=== PATIENT | female | born 1960 | race Caucasian/White ===

== ENCOUNTER 2017-09-23 08:43 | Emergency (ER) | payer MEDICAID ==
[~2017-09-23] VITALS: Ht 167.6 cm; Wt 105.0 kg
[~2017-09-23 08:43] MED LIST: ALBU6.7H INH; CEPH500T PO; CHLO25CA10 PO; CLON-527 PO; FERR-121; GUAI120L55 PO; HYDR-2382 PO
[2017-09-23 08:53] VITALS: BP 171/130
== END 2017-09-23 10:12 | disposition home or self-care (01) ==
LOC: ER 08:43
DX: N63.0 Unspecified lump in unspecified breast (principal); I48.91 Unspecified atrial fibrillation; I10 Essential (primary) hypertension; G89.29 Other chronic pain; Z90.49 Acquired absence of other specified parts of digestive tract; Z98.890 Other specified postprocedural states; Z79.899 Other long term (current) drug therapy
CPT/HCPCS: 99281

== ENCOUNTER 2018-01-14 06:34 | Day surgery (SDC) | payer MEDICAID ==
[~2018-01-14] VITALS: Ht 167.6 cm; Wt 110.2 kg
[2018-01-14] VITALS (7 sets, daily range): BP systolic 117–138; BP diastolic 40–79
[2018-01-14] MEDS ORDERED: normal saline 1000ml 1,000 ML IV SCH ×2 (06:55→08:38)
[2018-01-14] MEDS ORDERED: blood pressure med (07:02)
[2018-01-14] MEDS ORDERED: HYDR-565 PO (07:02)
[2018-01-14] MEDS ORDERED: SULF1TAB49 PO (07:02)
[2018-01-14 07:27] LABS: BASOPHILS % (AUTO) 0.3 % (0-1); EOSINOPHILS # (AUTO) 0.1 X10'3 (0-0.9); EOSINOPHILS % (AUTO) 2.3 % (0-6); HEMATOCRIT 41.5 % (35.0-45.0); HEMOGLOBIN 13.7 g/dl (12.0-16.0); LYMPHOCYTES # (AUTO) 1.4 X10'3 (1.1-4.8); MEAN CORPUSCULAR HEMOGLOBIN 28.7 PG (27.0-31.0); MEAN CORPUSCULAR HGB CONC 32.9 % (33.0-36.5); MEAN CORPUSCULAR VOLUME 87.2 FL (78-98); MEAN PLATELET VOLUME 8.9 FL (7.4-10.4); MONOCYTES # (AUTO) 0.4 X10'3 (0-0.9); MONOCYTES % (AUTO) 9.6 % (2-12); NEUTROPHILS # (AUTO) 2.4 X10'3 (1.8-7.7); NEUTROPHILS % (AUTO) 55.8 % (42-75); PLATELET COUNT 172 X10'3 (140-440); RED BLOOD COUNT 4.75 X10'6 (4.20-5.60); RED CELL DISTRIBUTION WIDTH 19.4 % (11.5-14.5); WHITE BLOOD COUNT 4.3 X10'3 (4.5-11.0)
[2018-01-14] MEDS ORDERED: fentaNYL/PF 50MCG/1 ML 2ML syringe IV PRN ×2 (08:20)
[2018-01-14] MEDS ORDERED: heparin sodium, porcine/PF 100unit/ml 5ML syringe ICATH ONE ×2 (08:20)
[2018-01-14] MEDS ORDERED: LIDOcaine 1%/PF 5ML 10 MG/ML VIAL SQ ONE ×2 (08:20)
[2018-01-14] MEDS ORDERED: midazolam 2 mg/2 ml injection IV PRN ×2 (08:20)
[2018-01-14] MEDS ORDERED: heparin sodium, porcine/PF 100unit/ml 5ML syringe ONE (08:24)
[2018-01-14] MEDS ORDERED: fentaNYL/PF 50MCG/1 ML 2ML syringe ONE ×2 (08:25→09:10)
[2018-01-14] MEDS ORDERED: midazolam 2 mg/2 ml injection ONE (08:25)
[2018-01-14] MEDS ORDERED: LIDOcaine 1%/PF 5ML 10 MG/ML VIAL ONE (08:25)
[2018-01-14] MEDS ORDERED: LISI10TA4 PO (09:57)
== END 2018-01-14 10:44 | disposition home or self-care (01) ==
LOC: SSTAY O 06:34
PROVIDERS: ATTEND Radiology Diagnostic Radiology
DX: C50.311 Malignant neoplasm of lower-inner quadrant of right female breast (principal); I10 Essential (primary) hypertension; I48.91 Unspecified atrial fibrillation; F32.9 Major depressive disorder, single episode, unspecified; F41.8 Other specified anxiety disorders; I49.8 Other specified cardiac arrhythmias; F17.210 Nicotine dependence, cigarettes, uncomplicated; G89.29 Other chronic pain; Z90.11 Acquired absence of right breast and nipple; Z92.21 Personal history of antineoplastic chemotherapy; Z98.84 Bariatric surgery status; Z87.01 Personal history of pneumonia (recurrent); Z90.49 Acquired absence of other specified parts of digestive tract; Z87.440 Personal history of urinary (tract) infections; Z92.3 Personal history of irradiation; Z72.89 Other problems related to lifestyle; Z79.2 Long term (current) use of antibiotics; Z79.891 Long term (current) use of opiate analgesic; Z98.890 Other specified postprocedural states; Z79.899 Other long term (current) drug therapy
CPT/HCPCS: 36415; 36561; 76937; 77001; 85025; 99152; 99153; A6219; C1788; C1894; J1642; J2001; J2250; J3010; J7030; A4620

== ENCOUNTER 2018-08-15 16:27 | Inpatient (IN) | payer MEDICAID, OTHER ==
[~2018-08-15] VITALS: Ht 167.6 cm; Wt 112.0 kg
[~2018-08-15 16:27] MED LIST changes: -ALBU6.7H INH; -CEPH500T PO; -CHLO25CA10 PO; -CLON-527 PO; -FERR-121; -GUAI120L55 PO; -HYDR-2382 PO; +HYDR-4353 PO; +LISI10TA4 PO; +SULF1TAB49 PO
[2018-08-15] MEDS ORDERED: normal saline 1000ML IV soln IVB ONE (17:00)
[2018-08-15] MEDS ORDERED: LORazepam 2 mg/ml vial IV ONE ×2 (17:00→18:05)
[2018-08-15 17:30] LABS: HEMATOCRIT 38.5 % (35.0-45.0); HEMOGLOBIN 12.4 g/dl (12.0-16.0); MEAN CORPUSCULAR HEMOGLOBIN 30.7 PG (27.0-31.0); MEAN CORPUSCULAR HGB CONC 32.2 g/dL (33.0-36.5); MEAN CORPUSCULAR VOLUME 95.5 FL (78-98); MEAN PLATELET VOLUME 9.2 FL (7.4-10.4); PLATELET COUNT 143 X10'3 (140-440); RED BLOOD COUNT 4.03 X10'6 (4.20-5.60); WHITE BLOOD COUNT 2.7 X10'3 (4.5-11.0)
[2018-08-15 17:42] LABS: ALANINE AMINOTRANSFERASE 144 U/L (12-78); ALBUMIN/GLOBULIN RATIO 0.7 (1.1-1.5); ALKALINE PHOSPHATASE 313 IU/L (46-116); ANION GAP 10 (8-16); ASPARTATE AMINO TRANSFERASE 355 U/L (10-37); BILIRUBIN,TOTAL 1.7 MG/DL (0.1-1.0); BLOOD UREA NITROGEN 6 MG/DL (7-18); BUN/CREATININE RATIO 11.8 (6.6-38.0); CALCIUM 8.5 MG/DL (8.5-10.1); CHLORIDE 98 MMOL/L (99-107); CREATININE 0.51 MG/DL (0.40-0.90); GLUCOSE 92 MG/DL (70-104); SODIUM 134 MMOL/L (135-145); TOTAL PROTEIN 7.6 G/DL (6.4-8.2); eGFR > 90 ML/MIN
[2018-08-15 17:45] LABS: D-DIMER 1.73 MG/L FEU (0-0.50); PARTIAL THROMBOPLASTIN TIME 26 SECONDS (22-32); PROTHROMBIN TIME 10.2 SECONDS (9.0-12.0)
[2018-08-15] MEDS ORDERED: diltiazem 5mg/ml 5ml inj. IV ONE ×2 (17:55→19:35)
[2018-08-15] MEDS ORDERED: iohexol 350MG/ML 100ml bottle IV ONE (17:58)
[2018-08-15 17:59] LABS: TOTAL CELLS COUNTED 100
[2018-08-15 18:00] LABS: ANISOCYTOSIS 1+; PLATELET ESTIMATE NORMAL
[2018-08-15] MEDS ORDERED: LORazepam 2 mg/ml vial ONE (18:05)
[2018-08-15 19:22] LABS: URINE AMPHETAMINE SCREEN NEGATIVE (Neg); URINE BARBITUATE SCREEN NEGATIVE (Neg); URINE BENZODIAZEPINES SCREEN NEGATIVE (Neg); URINE CANNABINOID SCREEN NEGATIVE (Neg); URINE COCAINE SCREEN NEGATIVE (Neg); URINE METHADONE SCREEN NEGATIVE (Neg); URINE OPIATE SCREEN NEGATIVE (Neg); URINE PHENCYCLIDINE SCREEN NEGATIVE (Neg)
[2018-08-15] MEDS ORDERED: folic acid 1mg tablet PO ONE (19:45)
[2018-08-15] MEDS ORDERED: thiamine 100mg tablet PO ONE (19:45)
[2018-08-15] MEDS ORDERED: gabapentin 300mg capsule PO ONE (19:45)
[2018-08-15] MEDS ORDERED: normal saline 1000ml 1,000 ML IV SCH (19:48)
[2018-08-15] MEDS ORDERED: enoxaparin 100mg/ml syringe SUBCUT ONE (19:50)
[2018-08-15] MEDS: thiamine 100mg tablet PO SCH (19:50)
[2018-08-15] MEDS ORDERED: ondansetron/PF 4mg/2ml inj IV PRN (19:50)
[2018-08-15] MEDS ORDERED: magnesium hydroxide 30ml (MOM) UD suspension PO PRN (19:50)
[2018-08-15] MEDS ORDERED: magnesium Cl slow-release 64mg tablet PO PRN (19:50)
[2018-08-15] MEDS ORDERED: thiamine inj. 100 MG in normal saline 100ml IV soln 100 ML IV ONE (19:50)
[2018-08-15] MEDS ORDERED: metoprolol tartrate 1mg/ml inj IV ONE (19:50)
[2018-08-15] MEDS ORDERED: potassium Cl 40MEQ/NS 500ml 500 ML IV PRN ×2 (19:50)
[2018-08-15] MEDS ORDERED: acetaminophen 325mg tablet PO PRN ×2 (19:50)
[2018-08-15] MEDS ORDERED: haloperidol lactate 5mg/ml inj IM PRN (19:50)
[2018-08-15] MEDS ORDERED: magnesium 4gm in 100ml NS 100 ML IV PRN (19:50)
[2018-08-15] MEDS ORDERED: haloperidol 5mg tablet PO PRN (19:50)
[2018-08-15] MEDS ORDERED: LORazepam 2 mg/ml vial IV PRN (19:50)
[2018-08-15] MEDS ORDERED: mag hydrox/Alum hydrox/simeth 30ml oral suspension PO PRN (19:50)
[2018-08-15] MEDS ORDERED: folic acid 1mg tablet PO SCH (19:50)
[2018-08-15] MEDS ORDERED: potassium Cl 20 mEq SR tablet PO PRN (19:50)
[2018-08-15] MEDS ORDERED: magnesium 2GM in 50ml NS 50 ML IV PRN (19:50)
--- NOTE | 2018-08-15 20:45 | NUR ---
Patient in room PCU 3023. I have received report from Neftali DOWNS and had the opportunity to ask questions and assume patient care.
[2018-08-15 21:00] VITALS: BP 127/80
--- NOTE | 2018-08-15 21:00 | NUR ---
Patient arrived to PCU.
[2018-08-15] MEDS: LORazepam 1 MG tablet PO PRN (22:34)
[2018-08-15] MEDS ORDERED: nitroGLYCERIN 0.4mg SUBLingual tab SL PRN (22:55)
[2018-08-15] MEDS: folic acid inj. 2 MG, thiamine inj. 100 MG, MVI, adult No.4 with vit. K 10 ML in dextro... IV SCH ×4 (22:56)
[2018-08-15 23:00] VITALS: BP 111/78
[2018-08-15] MEDS: metoprolol tartrate 25mg tablet PO SCH (23:35)
[2018-08-15] MEDS: Melatonin 3mg tablet PO SCH (23:35)
[2018-08-16] VITALS (14 sets, daily range): BP systolic 101–153; BP diastolic 64–109
[2018-08-16] MEDS: LORazepam 1 MG tablet PO PRN ×6 (03:20→23:54)
[2018-08-16 05:30] LABS: BASOPHILS % (AUTO) 0.9 % (0-1); EOSINOPHILS % (AUTO) 1.2 % (0-6); HEMATOCRIT 32.4 % (35.0-45.0); HEMOGLOBIN 10.8 g/dl (12.0-16.0); LYMPHOCYTES # (AUTO) 0.4 X10'3 (1.1-4.8); MEAN CORPUSCULAR HEMOGLOBIN 31.7 PG (27.0-31.0); MEAN CORPUSCULAR HGB CONC 33.3 g/dL (33.0-36.5); MEAN CORPUSCULAR VOLUME 95.1 FL (78-98); MEAN PLATELET VOLUME 9.3 FL (7.4-10.4); MONOCYTES # (AUTO) 0.3 X10'3 (0-0.9); MONOCYTES % (AUTO) 13.4 % (2-12); NEUTROPHILS # (AUTO) 1.6 X10'3 (1.8-7.7); NEUTROPHILS % (AUTO) 66.5 % (42-75); PLATELET COUNT 116 X10'3 (140-440); RED BLOOD COUNT 3.41 X10'6 (4.20-5.60); RED CELL DISTRIBUTION WIDTH 18.2 % (11.5-14.5); WHITE BLOOD COUNT 2.4 X10'3 (4.5-11.0)
[2018-08-16 05:39] LABS: ALANINE AMINOTRANSFERASE 125 U/L (12-78); ALBUMIN 2.6 G/DL (3.4-5.0); ALBUMIN/GLOBULIN RATIO 0.7 (1.1-1.5); ALKALINE PHOSPHATASE 267 IU/L (46-116); ANION GAP 7 (8-16); ASPARTATE AMINO TRANSFERASE 293 U/L (10-37); BILIRUBIN,TOTAL 2.5 MG/DL (0.1-1.0); BLOOD UREA NITROGEN 5 MG/DL (7-18); BUN/CREATININE RATIO 10.6 (6.6-38.0); CALCIUM 8.3 MG/DL (8.5-10.1); CHLORIDE 100 MMOL/L (99-107); CREATININE 0.47 MG/DL (0.40-0.90); GLUCOSE 95 MG/DL (70-104); POTASSIUM 3.9 MMOL/L (3.5-5.1); SODIUM 134 MMOL/L (135-145); TOTAL CARBON DIOXIDE 27.1 MMOL/L (24-32); TOTAL PROTEIN 6.5 G/DL (6.4-8.2); eGFR > 90 ML/MIN
[2018-08-16 05:43] LABS: PHOSPHORUS 1.9 MG/DL (2.3-4.5)
[2018-08-16] MEDS: folic acid inj. 2 MG, thiamine inj. 100 MG, MVI, adult No.4 with vit. K 10 ML in dextro... IV SCH ×4 (07:34)
[2018-08-16] MEDS: multivitamins, therapeutics tablet PO SCH (07:35)
[2018-08-16] MEDS: metoprolol tartrate 25mg tablet PO SCH ×2 (07:35→20:56)
[2018-08-16] MEDS: K and/or MAG REPLACEMENT MC SCH (07:39)
[2018-08-16 09:42] LABS: PLATELET ESTIMATE DECREASED; TOTAL CELLS COUNTED 100
[2018-08-16 09:43] LABS: ANISOCYTOSIS 2+
[2018-08-16] MEDS: HYDROcodone/acetaminophen 5mg/325mg tablet PO PRN ×2 (11:14→18:33)
[2018-08-16] MEDS ORDERED: furosemide 40mg/4ml inj IV ONE (15:45)
--- NOTE | 2018-08-16 18:10 | NUR ---
Problems reprioritized. Patient report given, questions answered & plan of care reviewed with Alisa DOWNS.
--- NOTE | 2018-08-16 18:17 | NUR ---
Paged Dr. Mei. PAGER ID: [phone] MESSAGE: Miles DOWNS [phone] [id number]: Tonya Boggs: HR 130s - 140s A fib, started at 1700. No SOB, no chest pain. Current BP 136/76.
[2018-08-16] MEDS ORDERED: diltiazem-D5W 125mg/125ml 125 ML IV SCH (18:30)
--- NOTE | 2018-08-16 18:30 | NUR ---
Patient in room PCU 3023. I have received report from jeremiah douglass and had the opportunity to ask questions and assume patient care.
--- NOTE | 2018-08-16 18:56 | NUR ---
Problems reprioritized. Patient report given, questions answered & plan of care reviewed with Jelena DOWNS.
[2018-08-16] MEDS: apixaban 5mg tablet PO SCH (20:54)
[2018-08-16] MEDS: Melatonin 3mg tablet PO SCH (20:55)
[2018-08-17] VITALS (12 sets, daily range): BP systolic 117–147; BP diastolic 80–105
[2018-08-17] MEDS: HYDROcodone/acetaminophen 5mg/325mg tablet PO PRN ×4 (00:18→19:22)
[2018-08-17] MEDS: LORazepam 1 MG tablet PO PRN ×6 (04:31→22:40)
[2018-08-17 04:56] LABS: BASOPHILS % (AUTO) 0.5 % (0-1); EOSINOPHILS # (AUTO) 0.1 X10'3 (0-0.9); EOSINOPHILS % (AUTO) 2.7 % (0-6); HEMATOCRIT 34.5 % (35.0-45.0); LYMPHOCYTES # (AUTO) 0.5 X10'3 (1.1-4.8); LYMPHOCYTES % (AUTO) 16.9 % (21-51); MEAN CORPUSCULAR HEMOGLOBIN 30.8 PG (27.0-31.0); MEAN CORPUSCULAR HGB CONC 31.9 g/dL (33.0-36.5); MEAN CORPUSCULAR VOLUME 96.6 FL (78-98); MEAN PLATELET VOLUME 9.2 FL (7.4-10.4); MONOCYTES # (AUTO) 0.4 X10'3 (0-0.9); MONOCYTES % (AUTO) 12.1 % (2-12); NEUTROPHILS % (AUTO) 67.8 % (42-75); PLATELET COUNT 112 X10'3 (140-440); RED BLOOD COUNT 3.57 X10'6 (4.20-5.60); RED CELL DISTRIBUTION WIDTH 17.8 % (11.5-14.5); WHITE BLOOD COUNT 2.9 X10'3 (4.5-11.0)
--- NOTE | 2018-08-17 05:08 | NUR ---
pt woke suddenly short of breath. RT notified. MD notified. Xray ordered. 2Lnasal cannula, sats high 90s.
[2018-08-17 05:16] LABS: ALANINE AMINOTRANSFERASE 119 U/L (12-78); ALBUMIN 2.6 G/DL (3.4-5.0); ALBUMIN/GLOBULIN RATIO 0.7 (1.1-1.5); ALKALINE PHOSPHATASE 256 IU/L (46-116); ANION GAP 5 (8-16); ASPARTATE AMINO TRANSFERASE 228 U/L (10-37); BLOOD UREA NITROGEN 5 MG/DL (7-18); BUN/CREATININE RATIO 8.9 (6.6-38.0); CALCIUM 8.3 MG/DL (8.5-10.1); CHLORIDE 99 MMOL/L (99-107); CREATININE 0.56 MG/DL (0.40-0.90); GLUCOSE 97 MG/DL (70-104); MAGNESIUM 1.8 MG/DL (1.5-2.4); PHOSPHORUS 2.1 MG/DL (2.3-4.5); SODIUM 134 MMOL/L (135-145); TOTAL CARBON DIOXIDE 29.9 MMOL/L (24-32); TOTAL PROTEIN 6.6 G/DL (6.4-8.2); eGFR > 90 ML/MIN
[2018-08-17 05:17] LABS: POTASSIUM 3.4 MMOL/L (3.5-5.1)
--- NOTE | 2018-08-17 05:19 | NUR ---
xray done. pt says she is feeling better. denied any further needs at this time. nasal cannula still on
--- NOTE | 2018-08-17 06:17 | NUR ---
Problems reprioritized. Patient report given, questions answered & plan of care reviewed with Marimar DOWNS.
[2018-08-17 08:00] LABS: TOTAL CELLS COUNTED 100
[2018-08-17] MEDS: K and/or MAG REPLACEMENT MC SCH (08:00)
[2018-08-17 08:01] LABS: PLATELET ESTIMATE DECREASED
[2018-08-17 08:03] LABS: ANISOCYTOSIS 1+; LARGE PLATELETS FEW
[2018-08-17] MEDS: multivitamins, therapeutics tablet PO SCH (08:52)
[2018-08-17] MEDS: potassium Cl 20 mEq SR tablet PO PRN ×3 (08:53→17:13)
[2018-08-17] MEDS: folic acid 1mg tablet PO SCH (08:53)
[2018-08-17] MEDS: apixaban 5mg tablet PO SCH ×2 (08:53→19:22)
[2018-08-17] MEDS: thiamine 100mg tablet PO SCH (08:53)
[2018-08-17] MEDS: metoprolol tartrate 25mg tablet PO SCH ×2 (08:54→19:22)
[2018-08-17] MEDS: furosemide 40mg/4ml inj IV SCH (08:58)
[2018-08-17] MEDS ORDERED: METO25TA6 PO (12:33)
[2018-08-17] MEDS ORDERED: CARCD120C PO (12:33)
[2018-08-17] MEDS ORDERED: APIX5TAB3 PO (12:33)
[2018-08-17] MEDS ORDERED: FURO-150 PO (12:33)
[2018-08-17] MEDS: diltiazem CD 120mg capsule (once-daily) PO SCH (13:07)
--- NOTE | 2018-08-17 16:07 | NUR ---
Pt given iv Ativan for anxiety and claustrophobia for MRI.
--- NOTE | 2018-08-17 16:10 | NUR ---
Patient to MRI with tech via wheelchair
--- NOTE | 2018-08-17 18:22 | NUR ---
Problems reprioritized. Patient report given, questions answered & plan of care reviewed with YARELI Cuellar.
--- NOTE | 2018-08-17 18:58 | NUR ---
Patient in room PCU 3023. I have received report from Marimar DOWNS and had the opportunity to ask questions and assume patient care.
[2018-08-17] MEDS: Melatonin 3mg tablet PO SCH (22:40)
[2018-08-18] MEDS: LORazepam 1 MG tablet PO PRN ×5 (01:08→12:40)
[2018-08-18] MEDS: HYDROcodone/acetaminophen 5mg/325mg tablet PO PRN ×3 (01:08→12:40)
[2018-08-18 02:00] VITALS: BP 148/95
[2018-08-18 05:14] LABS: BASOPHILS % (AUTO) 0.5 % (0-1); EOSINOPHILS # (AUTO) 0.1 X10'3 (0-0.9); HEMATOCRIT 33.5 % (35.0-45.0); HEMOGLOBIN 10.9 g/dl (12.0-16.0); LYMPHOCYTES # (AUTO) 0.4 X10'3 (1.1-4.8); LYMPHOCYTES % (AUTO) 12.5 % (21-51); MEAN CORPUSCULAR HEMOGLOBIN 31.4 PG (27.0-31.0); MEAN CORPUSCULAR HGB CONC 32.4 g/dL (33.0-36.5); MEAN CORPUSCULAR VOLUME 96.7 FL (78-98); MEAN PLATELET VOLUME 9.7 FL (7.4-10.4); MONOCYTES # (AUTO) 0.4 X10'3 (0-0.9); NEUTROPHILS # (AUTO) 2.4 X10'3 (1.8-7.7); PLATELET COUNT 110 X10'3 (140-440); RED BLOOD COUNT 3.46 X10'6 (4.20-5.60); RED CELL DISTRIBUTION WIDTH 18.1 % (11.5-14.5); WHITE BLOOD COUNT 3.4 X10'3 (4.5-11.0)
[2018-08-18 05:20] LABS: ALANINE AMINOTRANSFERASE 93 U/L (12-78); ALBUMIN 2.6 G/DL (3.4-5.0); ALBUMIN/GLOBULIN RATIO 0.7 (1.1-1.5); ALKALINE PHOSPHATASE 232 IU/L (46-116); ANION GAP 6 (8-16); ASPARTATE AMINO TRANSFERASE 136 U/L (10-37); BILIRUBIN,TOTAL 2.6 MG/DL (0.1-1.0); BLOOD UREA NITROGEN 6 MG/DL (7-18); CALCIUM 8.4 MG/DL (8.5-10.1); CHLORIDE 101 MMOL/L (99-107); GLUCOSE 91 MG/DL (70-104); MAGNESIUM 1.7 MG/DL (1.5-2.4); PHOSPHORUS 2.3 MG/DL (2.3-4.5); POTASSIUM 3.6 MMOL/L (3.5-5.1); SODIUM 136 MMOL/L (135-145); TOTAL CARBON DIOXIDE 28.8 MMOL/L (24-32); TOTAL PROTEIN 6.4 G/DL (6.4-8.2); eGFR > 90 ML/MIN
[2018-08-18 06:00] VITALS: BP 122/89
--- NOTE | 2018-08-18 06:00 | NUR ---
ASSUMED PT CARE IVJ
[2018-08-18] MEDS: folic acid 1mg tablet PO SCH (07:24)
[2018-08-18] MEDS: multivitamins, therapeutics tablet PO SCH (07:24)
[2018-08-18] MEDS: metoprolol tartrate 25mg tablet PO SCH (07:25)
[2018-08-18] MEDS: diltiazem CD 120mg capsule (once-daily) PO SCH (07:25)
[2018-08-18] MEDS: furosemide 40mg/4ml inj IV SCH ×3 (07:25→07:53)
[2018-08-18] MEDS: thiamine 100mg tablet PO SCH (07:25)
[2018-08-18] MEDS: apixaban 5mg tablet PO SCH (07:25)
[2018-08-18] MEDS: K and/or MAG REPLACEMENT MC SCH (07:51)
--- NOTE | 2018-08-18 09:00 | NUR ---
RECIVED d/c ORDER FROM md choudhury
--- NOTE | 2018-08-18 09:38 | NUR ---
PT REFUSED bs CHECKED Addendum: 08/18/18 at 0939 by Ashely Tijerina RN Amended: Links added.
[2018-08-18 11:11] VITALS: BP 139/88
--- NOTE | 2018-08-18 12:00 | NUR ---
Patient medication called for pharmacy in [employer] [facility] Pt stated she is call for her rides IVJ
--- NOTE | 2018-08-18 12:00 | NUR ---
refused BS checked IVJ Addendum: 08/18/18 at 1448 by Ashely Tijerina RN Amended: Links added.
== END 2018-08-18 14:53 | disposition home or self-care (01) | DRG 308 ==
LOC: ER 16:28 → PCU 3S 20:07 → CMPBEDREQ 22:29
PROVIDERS: ADMIT Hospitalist; ATTEND Internal Medicine
PROC: B32T1ZZ Computerized Tomography (CT Scan) of Left Pulmonary Artery using Low Osmolar Contrast (ICD-10-PCS; principal; 2018-08-15)
PROC: B3201ZZ Computerized Tomography (CT Scan) of Thoracic Aorta using Low Osmolar Contrast (ICD-10-PCS; 2018-08-15)
PROC: B32S1ZZ Computerized Tomography (CT Scan) of Right Pulmonary Artery using Low Osmolar Contrast (ICD-10-PCS; 2018-08-15)
DX: I48.0 Paroxysmal atrial fibrillation (principal); I50.33 Acute on chronic diastolic (congestive) heart failure; J98.11 Atelectasis; F10.20 Alcohol dependence, uncomplicated; F17.210 Nicotine dependence, cigarettes, uncomplicated; F41.9 Anxiety disorder, unspecified; C50.919 Malignant neoplasm of unspecified site of unspecified female breast; G89.4 Chronic pain syndrome; I27.20 Pulmonary hypertension, unspecified; I11.0 Hypertensive heart disease with heart failure; I34.0 Nonrheumatic mitral (valve) insufficiency; R91.1 Solitary pulmonary nodule; K70.10 Alcoholic hepatitis without ascites; K76.0 Fatty (change of) liver, not elsewhere classified; Z85.118 Personal history of other malignant neoplasm of bronchus and lung; Z92.21 Personal history of antineoplastic chemotherapy; Z92.3 Personal history of irradiation; Z98.84 Bariatric surgery status; Z90.49 Acquired absence of other specified parts of digestive tract; Z79.899 Other long term (current) drug therapy; Z71.6 Tobacco abuse counseling
CPT/HCPCS: 36415; 71045; 71275; 80053; 80305; 82948; 83735; 83880; 84100; 84484; 85025; 85379; 85610; 85730; 87070; 93005; 93306; 96374; 96375; 96376; 99285; G0378; J1650; J1940; J2060; J3411; J3490; J7030; J7060; Q9967

== ENCOUNTER 2019-03-21 14:07 | Emergency (ER) | payer MEDICAID ==
[~2019-03-21] VITALS: Ht 167.6 cm; Wt 104.5 kg
[~2019-03-21 14:07] MED LIST changes: +APIX5TAB3 PO; +CARCD120C PO; +FURO-150 PO; -HYDR-4353 PO; +METO25TA6 PO; -SULF1TAB49 PO
[2019-03-21] MEDS ORDERED: morphine 4 MG/ML inj SYRINge IV PRN (15:40)
[2019-03-21] MEDS ORDERED: ondansetron/PF 4mg/2ml inj IV ONE (15:40)
[2019-03-21] MEDS ORDERED: normal saline 1000ML IV soln IVB ONE (15:40)
[2019-03-21] MEDS ORDERED: ketorolac trometh. 30mg/ml inj. IV ONE (15:50)
[2019-03-21 15:53] LABS: BASOPHILS % (AUTO) 0.6 % (0-1); EOSINOPHILS # (AUTO) 0.1 X10'3 (0-0.9); HEMATOCRIT 47.2 % (35.0-45.0); HEMOGLOBIN 15.8 g/dl (12.0-16.0); LYMPHOCYTES # (AUTO) 1.4 X10'3 (1.1-4.8); LYMPHOCYTES % (AUTO) 18.7 % (21-51); MEAN CORPUSCULAR HEMOGLOBIN 31.1 PG (27.0-31.0); MEAN CORPUSCULAR HGB CONC 33.4 g/dL (33.0-36.5); MEAN PLATELET VOLUME 8.7 FL (7.4-10.4); MONOCYTES # (AUTO) 0.6 X10'3 (0-0.9); NEUTROPHILS # (AUTO) 5.3 X10'3 (1.8-7.7); NEUTROPHILS % (AUTO) 71.7 % (42-75); PLATELET COUNT 246 X10'3 (140-440); RED BLOOD COUNT 5.07 X10'6 (4.20-5.60); WHITE BLOOD COUNT 7.4 X10'3 (4.5-11.0)
[2019-03-21 16:08] LABS: ALANINE AMINOTRANSFERASE 22 U/L (12-78); ALBUMIN 3.4 G/DL (3.4-5.0); ALBUMIN/GLOBULIN RATIO 0.7 (1.1-1.5); ALKALINE PHOSPHATASE 146 IU/L (46-116); ANION GAP 12 (8-16); ASPARTATE AMINO TRANSFERASE 25 U/L (10-37); BILIRUBIN,TOTAL 1.1 MG/DL (0.1-1.0); BLOOD UREA NITROGEN 16 MG/DL (7-18); CALCIUM 9.3 MG/DL (8.5-10.1); CHLORIDE 103 MMOL/L (99-107); CREATININE 0.89 MG/DL (0.40-0.90); GLUCOSE 116 MG/DL (70-104); LIPASE 50 U/L (73-393); POTASSIUM 3.9 MMOL/L (3.5-5.1); SODIUM 140 MMOL/L (135-145); TOTAL CARBON DIOXIDE 25.5 MMOL/L (24-32); TOTAL PROTEIN 8.3 G/DL (6.4-8.2); eGFR 65 ML/MIN
[2019-03-21 16:52] LABS: CLARITY,URINE TURBID (Clear); COLOR,URINE YELLOW (Yellow); D-DIMER 0.38 MG/L FEU (0-0.50); GLUCOSE, URINE NEGATIVE (Neg); KETONES,URINE 15 mg/dl (Neg); LEUKOCYTE ESTERASE ,URINE SMALL (Neg); NITRITES, URINE POSITIVE (Neg); OCCULT BLOOD,URINE NEGATIVE (Neg); PROTEIN,URINE 30 mg/dl (Neg)
[2019-03-21 16:54] LABS: UA COLLECTION TYPE CLN CATCH MIDSTREAM
[2019-03-21 17:00] LABS: SQUAMOUS EPITHELIAL CELL,UR MANY /LPF (FEW)
[2019-03-21 17:01] LABS: AMORPHOUS PHOSPHATES 1+; BACTERIA,URINE 2+ /HPF (Neg); RBC,URINE 0-2 /HPF (0-2); WBC,URINE 0-4 /HPF (0-4)
[2019-03-21] MEDS ORDERED: CEPH250T PO (17:01)
--- NOTE | 2019-03-21 17:03 | NUR ---
HALLEY Mcarthur is at the bedside.
[2019-03-21 17:33] VITALS: BP 151/84
== END 2019-03-21 17:40 | disposition home or self-care (01) ==
LOC: ER 14:08
DX: N39.0 Urinary tract infection, site not specified (principal); R10.12 Left upper quadrant pain; I48.91 Unspecified atrial fibrillation; I10 Essential (primary) hypertension; G89.29 Other chronic pain; F17.200 Nicotine dependence, unspecified, uncomplicated; Z90.49 Acquired absence of other specified parts of digestive tract; Z98.890 Other specified postprocedural states; Z98.84 Bariatric surgery status; Z85.3 Personal history of malignant neoplasm of breast; Z79.899 Other long term (current) drug therapy
CPT/HCPCS: 36415; 71045; 74176; 80053; 81001; 83690; 84484; 85025; 85379; 93005; 96374; 96375; 99284; J1885; J2270; J2405; J7030

== ENCOUNTER 2019-04-25 12:33 | Emergency (ER) | payer MEDICAID ==
[~2019-04-25] VITALS: Ht 167.6 cm; Wt 105.0 kg
[2019-04-25 13:16] LABS: BASOPHILS % (AUTO) 0.5 % (0-1); EOSINOPHILS # (AUTO) 0.1 X10'3 (0-0.9); HEMATOCRIT 40.2 % (35.0-45.0); HEMOGLOBIN 13.4 g/dl (12.0-16.0); LYMPHOCYTES # (AUTO) 0.9 X10'3 (1.1-4.8); MEAN CORPUSCULAR HEMOGLOBIN 30.5 PG (27.0-31.0); MEAN CORPUSCULAR HGB CONC 33.2 g/dL (33.0-36.5); MEAN CORPUSCULAR VOLUME 91.9 FL (78-98); MEAN PLATELET VOLUME 8.6 FL (7.4-10.4); MONOCYTES # (AUTO) 0.5 X10'3 (0-0.9); MONOCYTES % (AUTO) 6.9 % (2-12); NEUTROPHILS # (AUTO) 5.5 X10'3 (1.8-7.7); NEUTROPHILS % (AUTO) 78.6 % (42-75); PLATELET COUNT 231 X10'3 (140-440); RED BLOOD COUNT 4.37 X10'6 (4.20-5.60); RED CELL DISTRIBUTION WIDTH 16.9 % (11.5-14.5)
[2019-04-25 13:35] LABS: ALANINE AMINOTRANSFERASE 66 U/L (12-78); ALBUMIN 3.4 G/DL (3.4-5.0); ALBUMIN/GLOBULIN RATIO 0.8 (1.1-1.5); ALKALINE PHOSPHATASE 161 IU/L (46-116); ANION GAP 4 (8-16); ASPARTATE AMINO TRANSFERASE 54 U/L (10-37); BILIRUBIN,TOTAL 1.1 MG/DL (0.1-1.0); BLOOD UREA NITROGEN 9 MG/DL (7-18); BUN/CREATININE RATIO 12.2 (6.6-38.0); CALCIUM 8.6 MG/DL (8.5-10.1); CHLORIDE 100 MMOL/L (99-107); CREATININE 0.74 MG/DL (0.40-0.90); SODIUM 135 MMOL/L (135-145); TOTAL CARBON DIOXIDE 31.3 MMOL/L (24-32); TOTAL PROTEIN 7.7 G/DL (6.4-8.2); eGFR 80 ML/MIN
[2019-04-25 13:36] LABS: GLUCOSE 98 MG/DL (70-104)
[2019-04-25] MEDS ORDERED: iohexol 350MG/ML 100ml bottle IV ONE (13:38)
[2019-04-25] MEDS ORDERED: LORazepam 2 mg/ml vial IV ONE (14:30)
[2019-04-25 15:05] VITALS: BP 185/115
[2019-04-25] MEDS ORDERED: DOXY100C43 PO (15:38)
== END 2019-04-25 15:45 | disposition home or self-care (01) ==
LOC: ER 12:33
DX: R07.89 Other chest pain (principal); R06.02 Shortness of breath; R93.89 Abnormal findings on diagnostic imaging of other specified body structures; R05 Cough; I48.91 Unspecified atrial fibrillation; I10 Essential (primary) hypertension; G89.29 Other chronic pain; F41.9 Anxiety disorder, unspecified; Z90.49 Acquired absence of other specified parts of digestive tract; Z98.0 Intestinal bypass and anastomosis status; Z98.890 Other specified postprocedural states; Z85.3 Personal history of malignant neoplasm of breast; Z79.01 Long term (current) use of anticoagulants; Z79.899 Other long term (current) drug therapy
CPT/HCPCS: 36415; 71045; 71275; 80053; 84484; 85025; 93005; 96374; 99284; J2060; Q9967

== ENCOUNTER 2020-11-16 19:22 | Inpatient (IN) | payer MEDICAID ==
[~2020-11-16] VITALS: Ht 167.6 cm; Wt 104.5 kg
[~2020-11-16 19:22] MED LIST changes: +LISI10TA27 PO; -LISI10TA4 PO; +LOP25T PO; -METO25TA6 PO
[2020-11-16] MEDS ORDERED: normal saline 1000ML IV soln IVB ONE (19:55)
--- NOTE | 2020-11-16 20:52 | NUR ---
PT STATES HER LAST DRINK WAS 1 HOUR PRIOR TO COMING IN. DRINK BEER ALL DAY, COULDNT GIVE ME A NUMBER.
[2020-11-16 21:00] LABS: BASOPHILS % (AUTO) 0.4 % (0-1); EOSINOPHILS % (AUTO) 0.5 % (0-6); HEMATOCRIT 38.1 % (35.0-45.0); HEMOGLOBIN 12.9 g/dl (12.0-16.0); LYMPHOCYTES # (AUTO) 0.9 X10'3 (1.1-4.8); LYMPHOCYTES % (AUTO) 8.5 % (21-51); MEAN CORPUSCULAR HEMOGLOBIN 34.9 PG (27.0-31.0); MEAN CORPUSCULAR HGB CONC 33.8 g/dL (33.0-36.5); MEAN CORPUSCULAR VOLUME 103.2 FL (78-98); MEAN PLATELET VOLUME 9.4 FL (7.4-10.4); MONOCYTES # (AUTO) 0.9 X10'3 (0-0.9); MONOCYTES % (AUTO) 9.1 % (2-12); NEUTROPHILS # (AUTO) 8.2 X10'3 (1.8-7.7); NEUTROPHILS % (AUTO) 81.5 % (42-75); PLATELET COUNT 112 X10'3 (140-440); RED BLOOD COUNT 3.69 X10'6 (4.20-5.60); RED CELL DISTRIBUTION WIDTH 18.9 % (11.5-14.5); WHITE BLOOD COUNT 10.1 X10'3 (4.5-11.0)
[2020-11-16 21:07] LABS: CLARITY,URINE CLOUDY (Clear); COLOR,URINE YELLOW (Yellow); GLUCOSE, URINE NEGATIVE (Neg); KETONES,URINE NEGATIVE (Neg); LEUKOCYTE ESTERASE ,URINE LARGE (Neg); NITRITES, URINE POSITIVE (Neg); OCCULT BLOOD,URINE MODERATE (Neg); PROTEIN,URINE TRACE mg/dl (Neg); UROBILINOGEN,URINE 0.2 E.U/dL (0.2-1.0)
[2020-11-16 21:11] LABS: UA COLLECTION TYPE VOIDED
[2020-11-16 21:14] LABS: ALANINE AMINOTRANSFERASE 36 U/L (12-78); ALBUMIN 2.3 G/DL (3.4-5.0); ALBUMIN/GLOBULIN RATIO 0.6 (1.1-1.5); ALKALINE PHOSPHATASE 220 IU/L (46-116); ASPARTATE AMINO TRANSFERASE 55 U/L (10-37); BILIRUBIN,TOTAL 1.4 MG/DL (0.1-1.0); BLOOD UREA NITROGEN 6 MG/DL (7-18); BUN/CREATININE RATIO 11.3 (6.6-38.0); CALCIUM 7.5 MG/DL (8.5-10.1); CHLORIDE 83 MMOL/L (99-107); CREATININE 0.53 MG/DL (0.40-0.90); GLUCOSE 83 MG/DL (70-104); LIPASE < 50 U/L (73-393); TOTAL PROTEIN 6.4 G/DL (6.4-8.2); eGFR > 90 ML/MIN
[2020-11-16 21:22] LABS: ANION GAP 7 (8-16)
[2020-11-16 21:24] LABS: SODIUM 113 MMOL/L (135-145)
[2020-11-16 21:27] LABS: BACTERIA,URINE 2+ /HPF (Neg); WBC,URINE 20-30 /HPF (0-4)
[2020-11-16 21:28] LABS: MUCUS STRANDS NONE SEEN /LPF (Neg)
[2020-11-16 21:29] LABS: SQUAMOUS EPITHELIAL CELL,UR MANY /LPF (FEW)
[2020-11-16 21:46] LABS: CREATINE KINASE 86 U/L (26-192)
[2020-11-16 21:57] LABS: PLATELET ESTIMATE DECREASED
[2020-11-16 21:58] LABS: ANISOCYTOSIS 2+
[2020-11-16] MEDS ORDERED: OXYB10TA30 PO (22:54)
[2020-11-16] MEDS ORDERED: ANAS1TAB10 PO (22:54)
[2020-11-16] MEDS ORDERED: METO-384 PO (22:54)
[2020-11-17] VITALS (20 sets, daily range): BP systolic 92–129; BP diastolic 38–85
[2020-11-17 00:25] LABS: ALBUMIN 2.3 G/DL (3.4-5.0); BLOOD UREA NITROGEN 5 MG/DL (7-18); BUN/CREATININE RATIO 10.6 (6.6-38.0); CALCIUM 7.6 MG/DL (8.5-10.1); CREATININE 0.47 MG/DL (0.40-0.90); GLUCOSE 84 MG/DL (70-104); TOTAL CARBON DIOXIDE 23.1 MMOL/L (24-32); eGFR > 90 ML/MIN
[2020-11-17 00:40] LABS: ANION GAP 7 (8-16); CHLORIDE 85 MMOL/L (99-107); POTASSIUM 4.4 MMOL/L (3.5-5.1)
[2020-11-17 00:42] LABS: SODIUM 115 MMOL/L (135-145)
[2020-11-17] MEDS ORDERED: CefTRIAXone 2gm/D5W 50ml BAG 50 ML IV ONE (01:45)
[2020-11-17] MEDS ORDERED: normal saline 1000ml 1,000 ML IV ONE (02:00)
[2020-11-17] MEDS ORDERED: thiamine 100mg/ml 2ml inj. IV ONE (02:10)
[2020-11-17] MEDS ORDERED: potassium Cl 20 mEq SR tablet PO PRN ×2 (02:10)
[2020-11-17] MEDS ORDERED: ondansetron/PF 4mg/2ml inj IV PRN (02:10)
[2020-11-17] MEDS ORDERED: sodium phosphate inj. 30 MMOL in dextrose 5%-water 250 ML IV PRN (02:10)
[2020-11-17] MEDS ORDERED: sodium phosphate inj. 15 MMOL in dextrose 5%-water 250 ML IV PRN (02:10)
[2020-11-17] MEDS ORDERED: Neutra Phos packet PO PRN (02:10)
[2020-11-17] MEDS ORDERED: dextrose 50%-water 50ml dispensing syringe IV PRN (02:10)
[2020-11-17] MEDS ORDERED: magnesium Cl slow-release 64mg tablet PO PRN (02:10)
[2020-11-17] MEDS ORDERED: magnesium 4gm in 100ml NS 100 ML IV PRN (02:10)
[2020-11-17] MEDS ORDERED: acetaminophen 325mg tablet PO PRN ×2 (02:10)
[2020-11-17] MEDS ORDERED: magnesium 2GM in 50ml NS 50 ML IV PRN (02:10)
[2020-11-17 03:18] LABS: ANION GAP 5 (8-16); BLOOD UREA NITROGEN 6 MG/DL (7-18); CALCIUM 7.2 MG/DL (8.5-10.1); CHLORIDE 87 MMOL/L (99-107); GLUCOSE 85 MG/DL (70-104); PHOSPHORUS 2.6 MG/DL (2.3-4.5); POTASSIUM 4.7 MMOL/L (3.5-5.1); TOTAL CARBON DIOXIDE 22.2 MMOL/L (24-32); eGFR > 90 ML/MIN
[2020-11-17 03:22] LABS: SODIUM 114 MMOL/L (135-145)
--- NOTE | 2020-11-17 03:22 | NUR ---
received report over phone from [place] in ER
[2020-11-17 03:32] LABS: OSMOLALITY 236 MOSM/K (280-300)
[2020-11-17] MEDS ORDERED: dextrose 5%-normal saline 1,000 ML IV SCH (03:35)
--- NOTE | 2020-11-17 03:53 | NUR ---
pt brought up from ER on [facility] by Rn, transferred from [facility] to [facility]
--- NOTE | 2020-11-17 04:51 | NUR ---
notified dr kingsley to verify the fluids and rates. Dr kingsley mentioned he wants only the d5 1/2 ns running at 200ml/hr and to hold the normal saline.
--- NOTE | 2020-11-17 06:12 | NUR ---
Problems reprioritized. Patient report given, questions answered & plan of care reviewed with NOS RN.
[2020-11-17 06:22] LABS: ALBUMIN 2.1 G/DL (3.4-5.0); ANION GAP 7 (8-16); BLOOD UREA NITROGEN 6 MG/DL (7-18); BUN/CREATININE RATIO 13.3 (6.6-38.0); CALCIUM 7.2 MG/DL (8.5-10.1); CHLORIDE 87 MMOL/L (99-107); CREATININE 0.45 MG/DL (0.40-0.90); GLUCOSE 95 MG/DL (70-104); POTASSIUM 4.4 MMOL/L (3.5-5.1); TOTAL CARBON DIOXIDE 22.3 MMOL/L (24-32); eGFR > 90 ML/MIN
[2020-11-17 06:23] LABS: PARTIAL THROMBOPLASTIN TIME 33 SECONDS (22-32)
[2020-11-17 06:28] LABS: SODIUM 116 MMOL/L (135-145)
[2020-11-17] MEDS: folic acid 1mg tablet PO SCH (07:12)
[2020-11-17] MEDS: thiamine 100mg tablet PO SCH (07:13)
[2020-11-17] MEDS: famotidine 20mg tablet PO SCH ×2 (07:13→19:21)
[2020-11-17] MEDS: multivitamins, therapeutics tablet PO SCH (07:13)
[2020-11-17] MEDS: enoxaparin 40mg/0.4ml syringe SUBCUT SCH (07:13)
[2020-11-17] MEDS ORDERED: metoprolol tartrate 25mg tablet PO SCH (08:00)
[2020-11-17] MEDS ORDERED: folic acid inj. 2 MG, thiamine inj. 100 MG, MVI, adult No.4 with vit. K 10 ML in dextro... IV SCH ×4 (08:00)
[2020-11-17] MEDS: levoTHYROXINE 25mcg tablet PO SCH (09:36)
[2020-11-17] MEDS: normal saline 1000ml 1,000 ML IV SCH ×5 (09:37→21:12)
[2020-11-17 10:58] LABS: OSMOLALITY UA 130 MOSM/K (50-1400)
[2020-11-17 11:02] LABS: CHLORIDE,URINE RANDOM < 50 MEQ/L
[2020-11-17 11:08] LABS: SODIUM,URINE RANDOM < 15 MEQ/L
[2020-11-17 12:36] LABS: ALBUMIN 2.2 G/DL (3.4-5.0); ANION GAP 7 (8-16); BLOOD UREA NITROGEN 5 MG/DL (7-18); BUN/CREATININE RATIO 8.9 (6.6-38.0); CALCIUM 7.7 MG/DL (8.5-10.1); CHLORIDE 91 MMOL/L (99-107); CREATININE 0.56 MG/DL (0.40-0.90); GLUCOSE 96 MG/DL (70-104); POTASSIUM 4.4 MMOL/L (3.5-5.1); TOTAL CARBON DIOXIDE 20.6 MMOL/L (24-32); eGFR > 90 ML/MIN
[2020-11-17 12:52] LABS: SODIUM 119 MMOL/L (135-145)
[2020-11-17] MEDS: DOMEBORO TP SCH ×2 (15:36→20:07)
--- NOTE | 2020-11-17 15:52 | NUR ---
Malnutrition/calorie count consults: Per RN patient's current scaled wt is 104 kg. Current wt is stable with pt reported wt at previous admits in March and April 2019, though noted pt with h/o gastric bypass surgery (in 1998 per EMR). Pt on a regular diet documented with 25-50% PO intake first two meals. Pt observed at bedside, no visible fat or muscle wasting. Pt with no documented significant decrease in muscle strength or edema. Pt currently lacks a minimum of two criteria for malnutrition. Pt admit for hyponatremia, possibly "beer potomania" per H&P. Pt currently receiving routine Thiamine, Folic acid, and MVI. Pt with a low Troy of 11. Pt with wounds to her buttocks as she reports she does sit "a lot" per ED report. Wound care has been consulted, pending assessment at this time. MD requests calorie count for five days and a high protein diet. Given 25-50% PO intake first two meals, recommend Ensure Enlive TID. LBM 7/. Will f/u tomorrow for calorie count. Recommendations: 1) Continue regular diet 2) Ensure Enlive TID; monitor PO intake and for WOC assessment and adjust ONS recommendations as appropriate; consider double protein TID if PO intake improves 3) Continue routine Thiamine, Folic acid, and MVI for EtOH hx and elevated MCV 4) Bowel care per rx 5) Weekly scaled weights Addendum: 11/17/20 at [address] Amended: Links added.
[2020-11-17] MEDS: lactose-reduced food (Ensure Enlive) - 237ml bottle PO SCH (18:00)
--- NOTE | 2020-11-17 18:10 | NUR ---
Patient in room ICU 2044. I have received report from YARELI Villalba and had the opportunity to ask questions and assume patient care.
--- NOTE | 2020-11-17 18:22 | NUR ---
Problems reprioritized. Patient report given, questions answered & plan of care reviewed with Marianela.
[2020-11-17 18:33] LABS: ALBUMIN 1.9 G/DL (3.4-5.0); ANION GAP 7 (8-16); BLOOD UREA NITROGEN 6 MG/DL (7-18); BUN/CREATININE RATIO 11.5 (6.6-38.0); CALCIUM 7.3 MG/DL (8.5-10.1); CHLORIDE 95 MMOL/L (99-107); CREATININE 0.52 MG/DL (0.40-0.90); GLUCOSE 98 MG/DL (70-104); POTASSIUM 4.4 MMOL/L (3.5-5.1); SODIUM 123 MMOL/L (135-145); TOTAL CARBON DIOXIDE 21.5 MMOL/L (24-32); eGFR > 90 ML/MIN
[2020-11-17] MEDS: morphine 4 MG/ML inj SYRINge IV PRN (19:22)
[2020-11-17] MEDS ORDERED: apixaban 5mg tablet PO SCH (20:00)
[2020-11-17] MEDS: LORazepam 2 mg/ml vial IV PRN (20:38)
[2020-11-18] VITALS (21 sets, daily range): BP systolic 82–126; BP diastolic 47–90
[2020-11-18] MEDS: morphine 4 MG/ML inj SYRINge IV PRN ×5 (00:14→19:10)
[2020-11-18] MEDS: LORazepam 2 mg/ml vial IV PRN ×3 (00:49→19:10)
[2020-11-18] MEDS: normal saline 1000ml 1,000 ML IV SCH ×2 (00:52→04:30)
[2020-11-18 01:02] LABS: BASOPHILS % (AUTO) 0.4 % (0-1); EOSINOPHILS % (AUTO) 0.5 % (0-6); HEMATOCRIT 31.8 % (35.0-45.0); HEMOGLOBIN 10.7 g/dl (12.0-16.0); LYMPHOCYTES % (AUTO) 16.6 % (21-51); MEAN CORPUSCULAR HEMOGLOBIN 34.7 PG (27.0-31.0); MEAN CORPUSCULAR HGB CONC 33.6 g/dL (33.0-36.5); MEAN CORPUSCULAR VOLUME 103.2 FL (78-98); MEAN PLATELET VOLUME 8.4 FL (7.4-10.4); MONOCYTES # (AUTO) 0.6 X10'3 (0-0.9); MONOCYTES % (AUTO) 10.2 % (2-12); NEUTROPHILS # (AUTO) 4.2 X10'3 (1.8-7.7); NEUTROPHILS % (AUTO) 72.3 % (42-75); PLATELET COUNT 162 X10'3 (140-440); RED BLOOD COUNT 3.08 X10'6 (4.20-5.60); RED CELL DISTRIBUTION WIDTH 18.6 % (11.5-14.5); WHITE BLOOD COUNT 5.8 X10'3 (4.5-11.0)
[2020-11-18 01:05] LABS: ALBUMIN 1.8 G/DL (3.4-5.0); ANION GAP 6 (8-16); BLOOD UREA NITROGEN 5 MG/DL (7-18); BUN/CREATININE RATIO 9.1 (6.6-38.0); CALCIUM 7.3 MG/DL (8.5-10.1); CHLORIDE 98 MMOL/L (99-107); CREATININE 0.55 MG/DL (0.40-0.90); GLUCOSE 99 MG/DL (70-104); MAGNESIUM 1.9 MG/DL (1.5-2.4); PHOSPHORUS 2.5 MG/DL (2.3-4.5); POTASSIUM 4.2 MMOL/L (3.5-5.1); SODIUM 125 MMOL/L (135-145); TOTAL CARBON DIOXIDE 20.8 MMOL/L (24-32); eGFR > 90 ML/MIN
--- NOTE | 2020-11-18 01:11 | NUR ---
Called Dr. Russo to notify him that the pt has positive blood cultures. He will review the information.
[2020-11-18 02:21] LABS: ANISOCYTOSIS 2+; PLATELET ESTIMATE NORMAL
--- NOTE | 2020-11-18 06:25 | NUR ---
Problems reprioritized. Patient report given, questions answered & plan of care reviewed with Zaira DOWNS.
[2020-11-18 07:28] LABS: ALBUMIN 1.9 G/DL (3.4-5.0); ANION GAP 10 (8-16); BLOOD UREA NITROGEN 5 MG/DL (7-18); BUN/CREATININE RATIO 12.5 (6.6-38.0); CALCIUM 7.2 MG/DL (8.5-10.1); CHLORIDE 98 MMOL/L (99-107); GLUCOSE 96 MG/DL (70-104); SODIUM 128 MMOL/L (135-145); TOTAL CARBON DIOXIDE 20.2 MMOL/L (24-32); eGFR > 90 ML/MIN
[2020-11-18] MEDS: DOMEBORO TP SCH ×2 (08:00→20:04)
[2020-11-18] MEDS: lactose-reduced food (Ensure Enlive) - 237ml bottle PO SCH ×3 (08:00→18:00)
[2020-11-18] MEDS: levoTHYROXINE 25mcg tablet PO SCH (08:14)
[2020-11-18] MEDS: famotidine 20mg tablet PO SCH ×2 (08:14→19:09)
[2020-11-18] MEDS: multivitamins, therapeutics tablet PO SCH (08:14)
[2020-11-18] MEDS: folic acid 1mg tablet PO SCH (08:14)
[2020-11-18] MEDS: thiamine 100mg tablet PO SCH (08:14)
[2020-11-18] MEDS: oxybutynin 5mg tablet PO SCH ×2 (08:14→19:09)
[2020-11-18] MEDS: anastrozole 1 MG tablet PO SCH (08:14)
[2020-11-18] MEDS: metoprolol succinate 25mg (24-HOUR) SR. Tablet PO SCH (08:15)
[2020-11-18] MEDS: enoxaparin 40mg/0.4ml syringe SUBCUT SCH (08:15)
--- NOTE | 2020-11-18 09:56 | NUR ---
F/u 11/18: Calorie Count information from 11/17; no menu slips returned to dietary w/ meals so average PO percentages obtained from documented meal intake in EMR. Pt PO ~970kcals and 33g protein 11/17 partially meeting needs. Ensure Enlive TIDWM ONS pending verification in EMR. Noted Troy 11 w/ Gluteal blisters present and no further wounds at this time in EMR. Addendum: 11/18/20 at [address] Amended: Links added.
--- NOTE | 2020-11-18 11:02 | NUR ---
Assuming care for primary RN
[2020-11-18] MEDS: diltiazem-NS 100mg/100ml 100 ML IV SCH (11:22)
--- NOTE | 2020-11-18 11:26 | NUR ---
Heart rate 90's but frequently up to 110+, cardizem gtt started
--- NOTE | 2020-11-18 11:49 | NUR ---
report given to Marimar DOWNS. time allowed for questions
[2020-11-18 12:33] LABS: ALBUMIN 2.3 G/DL (3.4-5.0); ANION GAP 7 (8-16); BLOOD UREA NITROGEN 5 MG/DL (7-18); BUN/CREATININE RATIO 9.1 (6.6-38.0); CHLORIDE 99 MMOL/L (99-107); CREATININE 0.55 MG/DL (0.40-0.90); GLUCOSE 92 MG/DL (70-104); MAGNESIUM 2.2 MG/DL (1.5-2.4); PHOSPHORUS 2.6 MG/DL (2.3-4.5); POTASSIUM 4.1 MMOL/L (3.5-5.1); SODIUM 129 MMOL/L (135-145); TOTAL CARBON DIOXIDE 22.7 MMOL/L (24-32); eGFR > 90 ML/MIN
--- NOTE | 2020-11-18 15:30 | NUR ---
pt incontinent urine the wick system does not contain the urine. coccyx wound is bleeding pads changed. wound dressing applied to coccyx
--- NOTE | 2020-11-18 16:31 | NUR ---
16 fr temp palmer placed on first attempt
--- NOTE | 2020-11-18 18:00 | NUR ---
Patient in room ICU 2044. I have received report from YARELI Hlot and had the opportunity to ask questions and assume patient care.
[2020-11-18 18:20] LABS: ANION GAP 7 (8-16); BLOOD UREA NITROGEN 6 MG/DL (7-18); BUN/CREATININE RATIO 10.7 (6.6-38.0); CHLORIDE 99 MMOL/L (99-107); CREATININE 0.56 MG/DL (0.40-0.90); GLUCOSE 90 MG/DL (70-104); POTASSIUM 4.5 MMOL/L (3.5-5.1); SODIUM 129 MMOL/L (135-145); TOTAL CARBON DIOXIDE 22.6 MMOL/L (24-32); eGFR > 90 ML/MIN
[2020-11-19] VITALS (18 sets, daily range): BP systolic 88–130; BP diastolic 56–79
[2020-11-19] MEDS: morphine 4 MG/ML inj SYRINge IV PRN (00:03)
[2020-11-19] MEDS: LORazepam 2 mg/ml vial IV PRN ×2 (00:29→01:33)
[2020-11-19] MEDS: diltiazem-NS 100mg/100ml 100 ML IV SCH ×2 (03:55→22:36)
--- NOTE | 2020-11-19 05:17 | NUR ---
Rounding completed with Margot Hayes Will order another blood culture to determine ATB, asked about PICC line, PO Ativan and Ponce PRN, PO cardizem, eliquis 5 mg. Pt is currently on lovenox, will confirm with Dr. Sims on resuming eliquis.
[2020-11-19 05:48] LABS: BASOPHILS % (AUTO) 0.5 % (0-1); EOSINOPHILS % (AUTO) 0.6 % (0-6); HEMATOCRIT 33.2 % (35.0-45.0); HEMOGLOBIN 10.9 g/dl (12.0-16.0); LYMPHOCYTES # (AUTO) 0.6 X10'3 (1.1-4.8); LYMPHOCYTES % (AUTO) 12.8 % (21-51); MEAN CORPUSCULAR HEMOGLOBIN 34.7 PG (27.0-31.0); MEAN CORPUSCULAR HGB CONC 32.8 g/dL (33.0-36.5); MEAN PLATELET VOLUME 8.2 FL (7.4-10.4); MONOCYTES # (AUTO) 0.5 X10'3 (0-0.9); MONOCYTES % (AUTO) 9.9 % (2-12); NEUTROPHILS # (AUTO) 3.8 X10'3 (1.8-7.7); NEUTROPHILS % (AUTO) 76.2 % (42-75); PLATELET COUNT 164 X10'3 (140-440); RED BLOOD COUNT 3.13 X10'6 (4.20-5.60); RED CELL DISTRIBUTION WIDTH 18.6 % (11.5-14.5)
[2020-11-19] MEDS ORDERED: VANCOMYCIN 1,500MG inj. 1,500 MG in normal saline 500ml IV soln 300 ML IV ONE (05:50)
--- NOTE | 2020-11-19 06:00 | NUR ---
Problems reprioritized. Patient report given, questions answered & plan of care reviewed with YARELI Hatfield.
[2020-11-19 06:08] LABS: ANION GAP 7 (8-16); BLOOD UREA NITROGEN 6 MG/DL (7-18); BUN/CREATININE RATIO 12.8 (6.6-38.0); CALCIUM 7.8 MG/DL (8.5-10.1); CHLORIDE 100 MMOL/L (99-107); CREATININE 0.47 MG/DL (0.40-0.90); GLUCOSE 89 MG/DL (70-104); PHOSPHORUS 2.7 MG/DL (2.3-4.5); POTASSIUM 4.4 MMOL/L (3.5-5.1); SODIUM 128 MMOL/L (135-145); eGFR > 90 ML/MIN
--- NOTE | 2020-11-19 06:30 | NUR ---
Patient in room ICU 2044. I have received report from Mayra DOWNS and had the opportunity to ask questions and assume patient care.
[2020-11-19] MEDS: DOMEBORO TP SCH ×2 (08:00→20:03)
[2020-11-19] MEDS: HYDROcodone/acetaminophen 5mg/325mg tablet PO PRN ×3 (09:21→21:27)
[2020-11-19] MEDS: enoxaparin 40mg/0.4ml syringe SUBCUT SCH (09:22)
[2020-11-19] MEDS: thiamine 100mg tablet PO SCH (09:22)
[2020-11-19] MEDS: levoTHYROXINE 25mcg tablet PO SCH (09:22)
[2020-11-19] MEDS: metoprolol succinate 25mg (24-HOUR) SR. Tablet PO SCH (09:22)
[2020-11-19] MEDS: oxybutynin 5mg tablet PO SCH ×2 (09:22→20:02)
[2020-11-19] MEDS: famotidine 20mg tablet PO SCH ×2 (09:22→20:02)
[2020-11-19] MEDS: multivitamins, therapeutics tablet PO SCH (09:22)
[2020-11-19] MEDS: folic acid 1mg tablet PO SCH (09:22)
[2020-11-19] MEDS: anastrozole 1 MG tablet PO SCH (09:23)
[2020-11-19] MEDS: lactose-reduced food (Ensure Enlive) - 237ml bottle PO SCH ×3 (09:23→18:52)
[2020-11-19] MEDS: LORazepam 1 MG tablet PO PRN ×2 (09:28→20:12)
[2020-11-19] MEDS: diltiazem 30mg tablet PO SCH ×3 (10:04→20:02)
--- NOTE | 2020-11-19 11:46 | NUR ---
F/u 11/19: Calorie Count from 11/18; pt only documented PO 75% dinner w/ 25% first ensure enlive WS and no meals slips of further PO documentation provided. Unable to calculate accurate kcal/protein intake at this time given lack of documentation. Addendum: 11/19/20 at [address] Amended: Links added.
[2020-11-19 14:16] LABS: ALBUMIN 1.9 G/DL (3.4-5.0); ANION GAP 4 (8-16); BLOOD UREA NITROGEN 6 MG/DL (7-18); BUN/CREATININE RATIO 9.4 (6.6-38.0); CALCIUM 7.5 MG/DL (8.5-10.1); CHLORIDE 102 MMOL/L (99-107); CREATININE 0.64 MG/DL (0.40-0.90); GLUCOSE 98 MG/DL (70-104); POTASSIUM 4.3 MMOL/L (3.5-5.1); SODIUM 131 MMOL/L (135-145); TOTAL CARBON DIOXIDE 24.8 MMOL/L (24-32); eGFR > 90 ML/MIN
[2020-11-19] MEDS: linezolid 600mg tablet PO SCH ×2 (16:43→22:43)
--- NOTE | 2020-11-19 16:57 | NUR ---
called report to Jelena DOWNS on tele, transfered patient to floor via assistance of aide. Assessed wound issues with Jelena and informed her that there is a wound consult for her. Answered all questions and addressed all concerns
--- NOTE | 2020-11-19 18:05 | NUR ---
Patient in room PCU 3025. I have received report from Jelena DOWNS and had the opportunity to ask questions and assume patient care.
[2020-11-19] MEDS ORDERED: linezolid 600mg tablet PO SCH (20:00)
[2020-11-20] MEDS: LORazepam 1 MG tablet PO PRN ×4 (01:42→19:42)
[2020-11-20] MEDS: diltiazem 30mg tablet PO SCH ×4 (01:43→20:45)
[2020-11-20 02:00] VITALS: BP 115/73
[2020-11-20] MEDS: HYDROcodone/acetaminophen 5mg/325mg tablet PO PRN ×3 (02:58→14:56)
[2020-11-20 05:56] LABS: BASOPHILS % (AUTO) 0.5 % (0-1); EOSINOPHILS # (AUTO) 0.1 X10'3 (0-0.9); EOSINOPHILS % (AUTO) 1.2 % (0-6); HEMATOCRIT 32.9 % (35.0-45.0); HEMOGLOBIN 10.9 g/dl (12.0-16.0); LYMPHOCYTES # (AUTO) 0.9 X10'3 (1.1-4.8); LYMPHOCYTES % (AUTO) 16.6 % (21-51); MEAN CORPUSCULAR HEMOGLOBIN 34.8 PG (27.0-31.0); MEAN CORPUSCULAR HGB CONC 33.1 g/dL (33.0-36.5); MEAN PLATELET VOLUME 8.1 FL (7.4-10.4); MONOCYTES # (AUTO) 0.9 X10'3 (0-0.9); MONOCYTES % (AUTO) 15.1 % (2-12); NEUTROPHILS # (AUTO) 3.8 X10'3 (1.8-7.7); NEUTROPHILS % (AUTO) 66.6 % (42-75); PLATELET COUNT 171 X10'3 (140-440); RED BLOOD COUNT 3.13 X10'6 (4.20-5.60); RED CELL DISTRIBUTION WIDTH 18.7 % (11.5-14.5); WHITE BLOOD COUNT 5.7 X10'3 (4.5-11.0)
[2020-11-20 06:00] VITALS: BP 117/81
[2020-11-20 06:01] LABS: ANION GAP 5 (8-16); BLOOD UREA NITROGEN 7 MG/DL (7-18); BUN/CREATININE RATIO 9.9 (6.6-38.0); CALCIUM 8.1 MG/DL (8.5-10.1); CHLORIDE 101 MMOL/L (99-107); CREATININE 0.71 MG/DL (0.40-0.90); GLUCOSE 90 MG/DL (70-104); MAGNESIUM 2.2 MG/DL (1.5-2.4); POTASSIUM 4.6 MMOL/L (3.5-5.1); SODIUM 130 MMOL/L (135-145); TOTAL CARBON DIOXIDE 24.4 MMOL/L (24-32); eGFR 84 ML/MIN
--- NOTE | 2020-11-20 06:23 | NUR ---
Problems reprioritized. Patient report given, questions answered & plan of care reviewed with Jelena DOWNS.
[2020-11-20] MEDS: levoTHYROXINE 25mcg tablet PO SCH (07:38)
[2020-11-20] MEDS: linezolid 600mg tablet PO SCH ×2 (07:38→20:41)
[2020-11-20] MEDS: apixaban 5mg tablet PO SCH ×2 (07:38→20:41)
[2020-11-20] MEDS: famotidine 20mg tablet PO SCH ×2 (07:38→13:06)
[2020-11-20] MEDS: DOMEBORO TP SCH ×2 (07:38→20:00)
[2020-11-20] MEDS: oxybutynin 5mg tablet PO SCH ×2 (07:39→20:40)
[2020-11-20] MEDS: folic acid 1mg tablet PO SCH (07:39)
[2020-11-20] MEDS: multivitamins, therapeutics tablet PO SCH (07:39)
[2020-11-20] MEDS: metoprolol succinate 25mg (24-HOUR) SR. Tablet PO SCH (07:39)
[2020-11-20] MEDS: thiamine 100mg tablet PO SCH (07:40)
[2020-11-20] MEDS: lactose-reduced food (Ensure Enlive) - 237ml bottle PO SCH ×3 (08:00→14:26)
[2020-11-20] MEDS: anastrozole 1 MG tablet PO SCH (08:59)
[2020-11-20 11:40] LABS: TOTAL CELLS COUNTED 100
[2020-11-20 11:41] LABS: ANISOCYTOSIS 2+; PLATELET ESTIMATE NORMAL
[2020-11-20 12:41] VITALS: BP 113/83
[2020-11-20] MEDS: diltiazem-NS 100mg/100ml 100 ML IV SCH (14:27)
--- NOTE | 2020-11-20 14:48 | NUR ---
Calorie count f/u 11/20: No calorie count information received. Pt documented to have consumed 50% of lunch and dinner 11/19 and breakfast 11/20. Noted pt has been receiving double protein TID. With all three meals combined pt consuming roughly 1295 kcal and 76 g protein. Recommend discontinuing double protein TID until PO intake improves. Pt refusing all Ensures, d/w RN who reports Ensure has been encouraged however pt doesn't like it and doesn't want it. D/w RN recommendation to discontinue ONS given lack of acceptance. Noted pt started on Zyvox, currently documented as A/O x 3. Pt would benefit from low tyramine nutrition therapy education once more alert and oriented. Will f/u tomorrow for continuance of calorie count. Addendum: 11/20/20 at [address] Amended: Links added.
[2020-11-20 17:22] VITALS: BP 109/74
[2020-11-20 19:00] VITALS: BP 108/63
[2020-11-20] MEDS: sodium chloride 1gm tablet PO SCH (20:40)
[2020-11-20] MEDS: lactobacillus rhamnosus 10,000 MMU CELLS/CAPSULE PO SCH (20:45)
[2020-11-20 23:00] VITALS: BP 139/51
[2020-11-21] MEDS: HYDROcodone/acetaminophen 5mg/325mg tablet PO PRN ×4 (01:05→20:04)
[2020-11-21] MEDS: diltiazem 30mg tablet PO SCH ×4 (01:06→20:05)
[2020-11-21 03:00] VITALS: BP 139/51
[2020-11-21] MEDS: LORazepam 1 MG tablet PO PRN ×4 (05:05→23:53)
[2020-11-21 06:00] VITALS: BP 134/89
[2020-11-21 06:05] LABS: BASOPHILS % (AUTO) 0.2 % (0-1); EOSINOPHILS # (AUTO) 0.1 X10'3 (0-0.9); EOSINOPHILS % (AUTO) 1.1 % (0-6); HEMATOCRIT 35.8 % (35.0-45.0); HEMOGLOBIN 11.7 g/dl (12.0-16.0); LYMPHOCYTES # (AUTO) 0.8 X10'3 (1.1-4.8); LYMPHOCYTES % (AUTO) 12.4 % (21-51); MEAN CORPUSCULAR HEMOGLOBIN 34.6 PG (27.0-31.0); MEAN CORPUSCULAR HGB CONC 32.8 g/dL (33.0-36.5); MEAN CORPUSCULAR VOLUME 105.6 FL (78-98); MEAN PLATELET VOLUME 8.2 FL (7.4-10.4); MONOCYTES # (AUTO) 0.6 X10'3 (0-0.9); NEUTROPHILS # (AUTO) 4.8 X10'3 (1.8-7.7); NEUTROPHILS % (AUTO) 77.3 % (42-75); PLATELET COUNT 168 X10'3 (140-440); RED BLOOD COUNT 3.39 X10'6 (4.20-5.60); RED CELL DISTRIBUTION WIDTH 18.4 % (11.5-14.5); WHITE BLOOD COUNT 6.2 X10'3 (4.5-11.0)
[2020-11-21 06:18] LABS: ALBUMIN 2.2 G/DL (3.4-5.0); ANION GAP 9 (8-16); BLOOD UREA NITROGEN 7 MG/DL (7-18); BUN/CREATININE RATIO 12.7 (6.6-38.0); CHLORIDE 99 MMOL/L (99-107); CREATININE 0.55 MG/DL (0.40-0.90); GLUCOSE 90 MG/DL (70-104); MAGNESIUM 1.9 MG/DL (1.5-2.4); PHOSPHORUS 3.3 MG/DL (2.3-4.5); POTASSIUM 4.5 MMOL/L (3.5-5.1); SODIUM 131 MMOL/L (135-145); TOTAL CARBON DIOXIDE 22.8 MMOL/L (24-32); eGFR > 90 ML/MIN
--- NOTE | 2020-11-21 06:46 | NUR ---
Patient in room PCU 3025. I have received report from Radha DOWNS and had the opportunity to ask questions and assume patient care.
[2020-11-21] MEDS: sodium chloride 1gm tablet PO SCH ×4 (07:25→20:04)
[2020-11-21] MEDS: linezolid 600mg tablet PO SCH ×2 (07:25→20:04)
[2020-11-21] MEDS: anastrozole 1 MG tablet PO SCH (07:26)
[2020-11-21] MEDS: multivitamins, therapeutics tablet PO SCH (07:26)
[2020-11-21] MEDS: metoprolol succinate 25mg (24-HOUR) SR. Tablet PO SCH (07:28)
[2020-11-21] MEDS: levoTHYROXINE 25mcg tablet PO SCH (07:28)
[2020-11-21] MEDS: folic acid 1mg tablet PO SCH (07:28)
[2020-11-21] MEDS: thiamine 100mg tablet PO SCH (07:29)
[2020-11-21] MEDS: famotidine 20mg tablet PO SCH ×2 (07:29→20:04)
[2020-11-21] MEDS: lactobacillus rhamnosus 10,000 MMU CELLS/CAPSULE PO SCH ×2 (07:30→20:05)
[2020-11-21] MEDS: oxybutynin 5mg tablet PO SCH ×2 (07:30→20:04)
[2020-11-21] MEDS: lactose-reduced food (Ensure Enlive) - 237ml bottle PO SCH ×4 (07:30→20:06)
[2020-11-21] MEDS: apixaban 5mg tablet PO SCH ×2 (07:30→20:04)
[2020-11-21] MEDS: DOMEBORO TP SCH ×2 (08:00→20:05)
--- NOTE | 2020-11-21 10:00 | NUR ---
Dr. Pacheco want the bladder conditioned before removal. Doctor wants to discontinue palmer catheter at end of day shift.
[2020-11-21 11:00] VITALS: BP 134/80
[2020-11-21 15:00] VITALS: BP 142/85
--- NOTE | 2020-11-21 15:12 | NUR ---
Calorie count f/u 11/20: Pt refused lunch and dinner 11/20 w/ first calorie count information received breakfast this AM PO 0-25% most items totaling 203kcals and 14g protein past 24 hours not meeting needs. Pt continues to refuse ensure shaun GALO; MEENU d/w RN regarding cancelling if MD agreeable since wasting ONS at this point. Noted pt only documented w/ smears this admit w/ no significant BM at least 4 days; would benefit from routine bowel care this admit. Addendum: 11/21/20 at [address] Amended: Links added.
--- NOTE | 2020-11-21 16:18 | NUR ---
Paged Dr. Pacheco regarding UA PAGER ID: [phone] MESSAGE: [id number] Tonya Erwin. Urine Osmolality [phone]. PCU Crystal
[2020-11-21 18:00] VITALS: BP 119/80
--- NOTE | 2020-11-21 18:25 | NUR ---
Patient in room PCU 3025. I have received report from Radha DOWNS and had the opportunity to ask questions and assume patient care.
--- NOTE | 2020-11-21 18:29 | NUR ---
Problems reprioritized. Patient report given, questions answered & plan of care reviewed with Clarisa RN. Patient stable at transfer of care.
[2020-11-21 22:00] VITALS: BP 120/75
[2020-11-22 02:00] VITALS: BP 139/97
[2020-11-22] MEDS: diltiazem 30mg tablet PO SCH ×4 (02:19→19:22)
[2020-11-22] MEDS: HYDROcodone/acetaminophen 5mg/325mg tablet PO PRN ×4 (02:21→21:17)
[2020-11-22] MEDS: LORazepam 1 MG tablet PO PRN ×4 (05:50→22:49)
[2020-11-22 06:00] VITALS: BP 122/73
--- NOTE | 2020-11-22 06:00 | NUR ---
Patient in room PCU 3025. I have received report from Clarisa DOWNS and had the opportunity to ask questions and assume patient care.
--- NOTE | 2020-11-22 06:04 | NUR ---
Problems reprioritized. Patient report given, questions answered & plan of care reviewed with Radha DOWNS.
[2020-11-22 06:38] LABS: BASOPHILS % (AUTO) 0.3 % (0-1); EOSINOPHILS # (AUTO) 0.1 X10'3 (0-0.9); EOSINOPHILS % (AUTO) 2.3 % (0-6); HEMATOCRIT 34.3 % (35.0-45.0); HEMOGLOBIN 11.6 g/dl (12.0-16.0); LYMPHOCYTES # (AUTO) 0.8 X10'3 (1.1-4.8); LYMPHOCYTES % (AUTO) 14.3 % (21-51); MEAN CORPUSCULAR HEMOGLOBIN 34.7 PG (27.0-31.0); MEAN CORPUSCULAR HGB CONC 33.8 g/dL (33.0-36.5); MEAN CORPUSCULAR VOLUME 102.6 FL (78-98); MEAN PLATELET VOLUME 8.1 FL (7.4-10.4); MONOCYTES # (AUTO) 0.4 X10'3 (0-0.9); MONOCYTES % (AUTO) 8.3 % (2-12); NEUTROPHILS # (AUTO) 3.9 X10'3 (1.8-7.7); NEUTROPHILS % (AUTO) 74.8 % (42-75); PLATELET COUNT 171 X10'3 (140-440); RED BLOOD COUNT 3.34 X10'6 (4.20-5.60); RED CELL DISTRIBUTION WIDTH 18.4 % (11.5-14.5); WHITE BLOOD COUNT 5.3 X10'3 (4.5-11.0)
[2020-11-22 06:53] LABS: ANION GAP 9 (8-16); BLOOD UREA NITROGEN 7 MG/DL (7-18); BUN/CREATININE RATIO 12.5 (6.6-38.0); CALCIUM 7.9 MG/DL (8.5-10.1); CHLORIDE 98 MMOL/L (99-107); CREATININE 0.56 MG/DL (0.40-0.90); GLUCOSE 87 MG/DL (70-104); PHOSPHORUS 3.5 MG/DL (2.3-4.5); POTASSIUM 4.5 MMOL/L (3.5-5.1); SODIUM 130 MMOL/L (135-145); TOTAL CARBON DIOXIDE 23.4 MMOL/L (24-32); eGFR > 90 ML/MIN
[2020-11-22] MEDS: oxybutynin 5mg tablet PO SCH ×2 (07:21→19:22)
[2020-11-22] MEDS: thiamine 100mg tablet PO SCH (07:21)
[2020-11-22] MEDS: sodium chloride 1gm tablet PO SCH ×4 (07:21→21:17)
[2020-11-22] MEDS: linezolid 600mg tablet PO SCH ×2 (07:21→19:21)
[2020-11-22] MEDS: metoprolol succinate 25mg (24-HOUR) SR. Tablet PO SCH (07:21)
[2020-11-22] MEDS: famotidine 20mg tablet PO SCH ×2 (07:22→19:22)
[2020-11-22] MEDS: apixaban 5mg tablet PO SCH ×2 (07:22→19:22)
[2020-11-22] MEDS: folic acid 1mg tablet PO SCH (07:22)
[2020-11-22] MEDS: multivitamins, therapeutics tablet PO SCH (07:22)
[2020-11-22] MEDS: levoTHYROXINE 25mcg tablet PO SCH (07:22)
[2020-11-22] MEDS: lactobacillus rhamnosus 10,000 MMU CELLS/CAPSULE PO SCH ×2 (07:22→19:21)
[2020-11-22] MEDS: anastrozole 1 MG tablet PO SCH (07:23)
[2020-11-22] MEDS: DOMEBORO TP SCH ×2 (07:24→19:24)
[2020-11-22] MEDS ORDERED: bisacodyl 10mg suppository rectal RC STA (09:46)
[2020-11-22] MEDS ORDERED: bisacodyl 10mg suppository rectal RC PRN (09:50)
[2020-11-22] MEDS ORDERED: magnesium hydroxide 30ml (MOM) UD suspension PO PRN (10:15)
[2020-11-22] MEDS ORDERED: docusate sod 100mg capsule PO ONE (10:15)
[2020-11-22] MEDS ORDERED: magnesium hydroxide 30ml (MOM) UD suspension PO ONE (10:15)
[2020-11-22 11:00] VITALS: BP 146/74
[2020-11-22] MEDS: lactose-reduced food (Ensure Enlive) - 237ml bottle PO SCH ×2 (12:53→17:35)
--- NOTE | 2020-11-22 14:56 | NUR ---
Calorie Count 11/22: Pt consumed 470kcals and 25g protein past 3 meals per EMR not meeting needs. Pt seen by RD for written/verbal zyvox ed w/ RD contact information provided. Pt reports dislikes vanilla ensures prefers chocolate/strawberry flavors, wants ketchup w/ potatoes, cottage cheese w/ salt and pepper BIDBL, and lemon manzanita sodas BIDLD. Dietary notified of preferences. RD encouraged pt to communicate further preferences w/ stephanie mix RN, and dietitians this admit. LBM 11/20. Will continue to monitor. Recommendations: 1) Continue regular diet; encourage PO intake 2) Ensure Enlive TID chocolate/strawberry only; cottage cheese w/ salt/pepper BIDBL, lemon manzanita soda BIDLD per pt preferences; encourage PO 3) Continue routine Thiamine, Folic acid, and MVI for EtOH hx and elevated MCV 4) Routine Bowel care 5) Scaled wt this admit; subsequent weekly scaled weights Addendum: 11/22/20 at [address] Amended: Links added. Addendum: 11/22/20 at [address] Calorie Count 11/22: Pt consumed 470kcals and 25g protein past 3 meals per EMR not meeting needs. Pt seen by RD for written/verbal zyvox ed w/ RD contact information provided. Pt reports dislikes vanilla ensures prefers chocolate/strawberry flavors, wants ketchup w/ potatoes, cottage cheese w/ salt and pepper BIDBL, and lemon manzanita sodas BIDLD. Dietary notified of preferences. RD provided written alternative menu options for regular diet to pt. RD encouraged pt to communicate further preferences w/ dietary aide teacher, RN, and dietitians this admit. [facility] 11/20. Will continue to monitor.
[2020-11-22 15:00] VITALS: BP 140/97
[2020-11-22 18:00] VITALS: BP 112/72
--- NOTE | 2020-11-22 18:20 | NUR ---
Patient in room PCU 3025. I have received report from Radha DOWNS and had the opportunity to ask questions.
--- NOTE | 2020-11-22 18:21 | NUR ---
Problems reprioritized. Patient report given, questions answered & plan of care reviewed with Clarisa RN. Patient stable at transfer of care.
[2020-11-22] MEDS: docusate sod 100mg capsule PO SCH (19:22)
[2020-11-22] MEDS: zinc oxide ointment 30gm tube TP SCH (19:23)
[2020-11-22 22:00] VITALS: BP 127/79
[2020-11-23] MEDS: diltiazem 30mg tablet PO SCH ×4 (01:53→19:06)
[2020-11-23 02:00] VITALS: BP 136/89
[2020-11-23] MEDS: HYDROcodone/acetaminophen 5mg/325mg tablet PO PRN ×4 (03:11→21:27)
[2020-11-23] MEDS: LORazepam 1 MG tablet PO PRN ×3 (04:32→23:04)
[2020-11-23 06:25] LABS: BASOPHILS % (AUTO) 0.3 % (0-1); EOSINOPHILS # (AUTO) 0.1 X10'3 (0-0.9); EOSINOPHILS % (AUTO) 1.9 % (0-6); HEMATOCRIT 34.3 % (35.0-45.0); HEMOGLOBIN 11.5 g/dl (12.0-16.0); LYMPHOCYTES # (AUTO) 0.8 X10'3 (1.1-4.8); LYMPHOCYTES % (AUTO) 14.3 % (21-51); MEAN CORPUSCULAR HEMOGLOBIN 34.8 PG (27.0-31.0); MEAN CORPUSCULAR HGB CONC 33.6 g/dL (33.0-36.5); MEAN CORPUSCULAR VOLUME 103.5 FL (78-98); MEAN PLATELET VOLUME 8.2 FL (7.4-10.4); MONOCYTES # (AUTO) 0.5 X10'3 (0-0.9); MONOCYTES % (AUTO) 9.2 % (2-12); NEUTROPHILS # (AUTO) 4.1 X10'3 (1.8-7.7); NEUTROPHILS % (AUTO) 74.3 % (42-75); PLATELET COUNT 173 X10'3 (140-440); RED BLOOD COUNT 3.32 X10'6 (4.20-5.60); RED CELL DISTRIBUTION WIDTH 17.9 % (11.5-14.5); WHITE BLOOD COUNT 5.6 X10'3 (4.5-11.0)
--- NOTE | 2020-11-23 06:45 | NUR ---
Problems reprioritized. Patient report given, questions answered & plan of care reviewed with Elvia DOWNS.
[2020-11-23 07:00] VITALS: BP 129/85
[2020-11-23 07:03] LABS: ALBUMIN 2.1 G/DL (3.4-5.0); ANION GAP 7 (8-16); BLOOD UREA NITROGEN 10 MG/DL (7-18); BUN/CREATININE RATIO 17.2 (6.6-38.0); CALCIUM 7.9 MG/DL (8.5-10.1); CHLORIDE 97 MMOL/L (99-107); CREATININE 0.58 MG/DL (0.40-0.90); GLUCOSE 90 MG/DL (70-104); MAGNESIUM 1.9 MG/DL (1.5-2.4); PHOSPHORUS 3.2 MG/DL (2.3-4.5); POTASSIUM 4.4 MMOL/L (3.5-5.1); SODIUM 130 MMOL/L (135-145); TOTAL CARBON DIOXIDE 26.1 MMOL/L (24-32); eGFR > 90 ML/MIN
--- NOTE | 2020-11-23 07:10 | NUR ---
Patient in room PCU 3025. I have received report from Clarisa DOWNS and had the opportunity to ask questions and assume patient care.
[2020-11-23] MEDS: DOMEBORO TP SCH ×2 (08:00→19:12)
[2020-11-23] MEDS: metoprolol succinate 25mg (24-HOUR) SR. Tablet PO SCH (08:42)
[2020-11-23] MEDS: sodium chloride 1gm tablet PO SCH ×4 (08:42→21:27)
[2020-11-23] MEDS: anastrozole 1 MG tablet PO SCH (08:42)
[2020-11-23] MEDS: famotidine 20mg tablet PO SCH ×2 (08:42→19:07)
[2020-11-23] MEDS: folic acid 1mg tablet PO SCH (08:42)
[2020-11-23] MEDS: thiamine 100mg tablet PO SCH (08:42)
[2020-11-23] MEDS: linezolid 600mg tablet PO SCH ×2 (08:43→19:07)
[2020-11-23] MEDS: levoTHYROXINE 25mcg tablet PO SCH (08:43)
[2020-11-23] MEDS: lactose-reduced food (Ensure Enlive) - 237ml bottle PO SCH ×3 (08:43→18:00)
[2020-11-23] MEDS: oxybutynin 5mg tablet PO SCH ×2 (08:43→19:07)
[2020-11-23] MEDS: apixaban 5mg tablet PO SCH ×2 (08:43→19:07)
[2020-11-23] MEDS: multivitamins, therapeutics tablet PO SCH (08:43)
[2020-11-23] MEDS: lactobacillus rhamnosus 10,000 MMU CELLS/CAPSULE PO SCH ×2 (08:43→19:06)
[2020-11-23] MEDS: docusate sod 100mg capsule PO SCH ×2 (08:43→19:06)
[2020-11-23] MEDS: zinc oxide ointment 30gm tube TP SCH ×2 (09:22→19:08)
[2020-11-23 11:00] VITALS: BP 119/90
[2020-11-23 15:00] VITALS: BP 155/93
[2020-11-23 18:00] VITALS: BP 130/67
--- NOTE | 2020-11-23 18:18 | NUR ---
Patient in room PCU 3023. I have received report from YARELI Gan and had the opportunity to ask questions and assume patient care.
--- NOTE | 2020-11-23 18:28 | NUR ---
Problems reprioritized. Patient report given, questions answered & plan of care reviewed with Diann DOWNS.
[2020-11-23 22:00] VITALS: BP 126/78
[2020-11-24 02:00] VITALS: BP 157/77
[2020-11-24] MEDS: diltiazem 30mg tablet PO SCH ×4 (03:49→19:04)
[2020-11-24] MEDS: HYDROcodone/acetaminophen 5mg/325mg tablet PO PRN ×4 (03:50→22:15)
[2020-11-24] MEDS: LORazepam 1 MG tablet PO PRN (05:51)
--- NOTE | 2020-11-24 06:08 | NUR ---
Problems reprioritized. Patient report given, questions answered & plan of care reviewed with YARELI Gan.
--- NOTE | 2020-11-24 06:51 | NUR ---
Patient in room PCU 3025. I have received report from Diann DOWNS and had the opportunity to ask questions and assume patient care.
[2020-11-24 07:00] VITALS: BP 127/74
[2020-11-24] MEDS: levoTHYROXINE 25mcg tablet PO SCH (07:08)
[2020-11-24] MEDS: DOMEBORO TP SCH ×2 (08:00→19:05)
[2020-11-24] MEDS: oxybutynin 5mg tablet PO SCH ×2 (08:00→19:04)
[2020-11-24] MEDS: apixaban 5mg tablet PO SCH ×2 (08:31→19:03)
[2020-11-24] MEDS: famotidine 20mg tablet PO SCH ×2 (08:31→19:04)
[2020-11-24] MEDS: sodium chloride 1gm tablet PO SCH ×4 (08:31→20:48)
[2020-11-24] MEDS: linezolid 600mg tablet PO SCH ×2 (08:31→19:04)
[2020-11-24] MEDS: lactobacillus rhamnosus 10,000 MMU CELLS/CAPSULE PO SCH ×2 (08:31→19:04)
[2020-11-24] MEDS: folic acid 1mg tablet PO SCH (08:31)
[2020-11-24] MEDS: multivitamins, therapeutics tablet PO SCH (08:31)
[2020-11-24] MEDS: metoprolol succinate 25mg (24-HOUR) SR. Tablet PO SCH (08:31)
[2020-11-24] MEDS: docusate sod 100mg capsule PO SCH ×2 (08:31→19:03)
[2020-11-24] MEDS: thiamine 100mg tablet PO SCH (08:32)
[2020-11-24] MEDS: anastrozole 1 MG tablet PO SCH (08:36)
[2020-11-24] MEDS: zinc oxide ointment 30gm tube TP SCH ×2 (08:40→19:05)
[2020-11-24 08:41] LABS: BASOPHILS % (AUTO) 0.6 % (0-1); EOSINOPHILS # (AUTO) 0.1 X10'3 (0-0.9); EOSINOPHILS % (AUTO) 1.5 % (0-6); HEMATOCRIT 37.4 % (35.0-45.0); HEMOGLOBIN 12.3 g/dl (12.0-16.0); LYMPHOCYTES # (AUTO) 0.7 X10'3 (1.1-4.8); MEAN CORPUSCULAR HEMOGLOBIN 34.3 PG (27.0-31.0); MEAN CORPUSCULAR HGB CONC 32.8 g/dL (33.0-36.5); MEAN CORPUSCULAR VOLUME 104.7 FL (78-98); MEAN PLATELET VOLUME 8.3 FL (7.4-10.4); MONOCYTES # (AUTO) 0.3 X10'3 (0-0.9); MONOCYTES % (AUTO) 6.6 % (2-12); NEUTROPHILS # (AUTO) 3.4 X10'3 (1.8-7.7); NEUTROPHILS % (AUTO) 76.3 % (42-75); PLATELET COUNT 188 X10'3 (140-440); RED BLOOD COUNT 3.57 X10'6 (4.20-5.60); RED CELL DISTRIBUTION WIDTH 18.4 % (11.5-14.5); WHITE BLOOD COUNT 4.5 X10'3 (4.5-11.0)
[2020-11-24] MEDS: lactose-reduced food (Ensure Enlive) - 237ml bottle PO SCH ×3 (08:41→18:36)
[2020-11-24 09:03] LABS: ALBUMIN 2.2 G/DL (3.4-5.0); ANION GAP 6 (8-16); BLOOD UREA NITROGEN 7 MG/DL (7-18); BUN/CREATININE RATIO 10.9 (6.6-38.0); CALCIUM 8.1 MG/DL (8.5-10.1); CHLORIDE 97 MMOL/L (99-107); CREATININE 0.64 MG/DL (0.40-0.90); GLUCOSE 84 MG/DL (70-104); MAGNESIUM 1.9 MG/DL (1.5-2.4); PHOSPHORUS 3.5 MG/DL (2.3-4.5); POTASSIUM 4.4 MMOL/L (3.5-5.1); SODIUM 130 MMOL/L (135-145); TOTAL CARBON DIOXIDE 26.8 MMOL/L (24-32); eGFR > 90 ML/MIN
--- NOTE | 2020-11-24 09:27 | NUR ---
Skin integrity education Pt refusing to lay on sides throughout shift and insists on HOB elevated to 40 degrees, placing majority of pressure on buttocks. pt changed, turned for wound care. Pt buttocks significantly macerated. wound care per order completed. jose blood noted. linens changed. After extensive encouragement, pt agreed to lay on her side for a while to relieve pressure.
[2020-11-24 11:00] VITALS: BP 119/80
--- NOTE | 2020-11-24 11:40 | NUR ---
Dr. Pacheco to tele unit new orders to d/c ativan, and discontinue Q6 blood sugar checks.
[2020-11-24 15:00] VITALS: BP 152/98
[2020-11-24 18:00] VITALS: BP 116/76
--- NOTE | 2020-11-24 18:07 | NUR ---
Problems reprioritized. Patient report given, questions answered & plan of care reviewed with Diann DOWNS.
--- NOTE | 2020-11-24 18:09 | NUR ---
Patient in room PCU 3023. I have received report from rafat Gan and had the opportunity to ask questions and assume patient care.
[2020-11-24 22:00] VITALS: BP 135/85
[2020-11-25] MEDS: diltiazem 30mg tablet PO SCH ×4 (01:46→20:15)
[2020-11-25 02:00] VITALS: BP 147/81
--- NOTE | 2020-11-25 04:15 | NUR ---
Pt has been refusing repositioning most of the night educated, pt walked to the bathroom with aide and rn in no apparent distress, pt tolerated it well with walker and stand by assist.
[2020-11-25] MEDS: HYDROcodone/acetaminophen 5mg/325mg tablet PO PRN ×4 (04:44→22:37)
[2020-11-25 06:00] VITALS: BP_SYST 126; BP_SYST 142; BP_DIAS 81; BP_DIAS 88
--- NOTE | 2020-11-25 06:15 | NUR ---
Patient in room PCU 3025. I have received report from YARELI Tidwell and had the opportunity to ask questions and assume patient care.
--- NOTE | 2020-11-25 06:18 | NUR ---
Problems reprioritized. Patient report given, questions answered & plan of care reviewed with YARELI Taylor.
[2020-11-25] MEDS: sodium chloride 1gm tablet PO SCH ×4 (07:58→20:19)
[2020-11-25] MEDS: anastrozole 1 MG tablet PO SCH (07:58)
[2020-11-25] MEDS: folic acid 1mg tablet PO SCH (07:58)
[2020-11-25] MEDS: famotidine 20mg tablet PO SCH ×2 (07:58→20:14)
[2020-11-25] MEDS: thiamine 100mg tablet PO SCH (07:58)
[2020-11-25] MEDS: docusate sod 100mg capsule PO SCH ×2 (07:58→20:14)
[2020-11-25] MEDS: metoprolol succinate 25mg (24-HOUR) SR. Tablet PO SCH (07:59)
[2020-11-25] MEDS: levoTHYROXINE 25mcg tablet PO SCH (07:59)
[2020-11-25] MEDS: lactobacillus rhamnosus 10,000 MMU CELLS/CAPSULE PO SCH ×2 (07:59→20:14)
[2020-11-25] MEDS: oxybutynin 5mg tablet PO SCH ×2 (07:59→20:14)
[2020-11-25] MEDS: multivitamins, therapeutics tablet PO SCH (07:59)
[2020-11-25] MEDS: apixaban 5mg tablet PO SCH ×2 (07:59→20:14)
[2020-11-25] MEDS: linezolid 600mg tablet PO SCH ×2 (07:59→20:14)
[2020-11-25] MEDS: zinc oxide ointment 30gm tube TP SCH ×2 (08:00→20:00)
[2020-11-25] MEDS: DOMEBORO TP SCH ×2 (08:00→20:00)
[2020-11-25] MEDS: lactose-reduced food (Ensure Enlive) - 237ml bottle PO SCH ×3 (08:11→18:06)
[2020-11-25 08:16] LABS: BASOPHILS % (AUTO) 0.6 % (0-1); EOSINOPHILS % (AUTO) 0.7 % (0-6); HEMATOCRIT 34.3 % (35.0-45.0); HEMOGLOBIN 11.4 g/dl (12.0-16.0); LYMPHOCYTES # (AUTO) 0.6 X10'3 (1.1-4.8); LYMPHOCYTES % (AUTO) 13.7 % (21-51); MEAN CORPUSCULAR HEMOGLOBIN 34.3 PG (27.0-31.0); MEAN CORPUSCULAR HGB CONC 33.2 g/dL (33.0-36.5); MEAN CORPUSCULAR VOLUME 103.5 FL (78-98); MEAN PLATELET VOLUME 8.2 FL (7.4-10.4); MONOCYTES # (AUTO) 0.3 X10'3 (0-0.9); MONOCYTES % (AUTO) 5.8 % (2-12); NEUTROPHILS # (AUTO) 3.6 X10'3 (1.8-7.7); NEUTROPHILS % (AUTO) 79.2 % (42-75); PLATELET COUNT 178 X10'3 (140-440); RED BLOOD COUNT 3.32 X10'6 (4.20-5.60); RED CELL DISTRIBUTION WIDTH 18.1 % (11.5-14.5); WHITE BLOOD COUNT 4.6 X10'3 (4.5-11.0)
[2020-11-25 08:52] LABS: ALBUMIN 2.1 G/DL (3.4-5.0); ANION GAP 9 (8-16); BLOOD UREA NITROGEN 7 MG/DL (7-18); BUN/CREATININE RATIO 11.3 (6.6-38.0); CALCIUM 7.9 MG/DL (8.5-10.1); CHLORIDE 98 MMOL/L (99-107); CREATININE 0.62 MG/DL (0.40-0.90); GLUCOSE 86 MG/DL (70-104); PHOSPHORUS 3.7 MG/DL (2.3-4.5); SODIUM 132 MMOL/L (135-145); TOTAL CARBON DIOXIDE 24.9 MMOL/L (24-32); eGFR > 90 ML/MIN
[2020-11-25 11:00] VITALS: BP 126/88
[2020-11-25] MEDS: LORazepam 0.5 MG tablet PO PRN ×2 (14:19→22:37)
[2020-11-25 15:00] VITALS: BP 139/88
--- NOTE | 2020-11-25 16:00 | NUR ---
Patient refused all wound pictures despite education and explanation.
--- NOTE | 2020-11-25 16:44 | NUR ---
Patient refused wound care. Patient refused any wound care and/or repositioning despite education. Addendum: 11/25/20 at 1645 by Aida Núñez RN Amended: Links added.
--- NOTE | 2020-11-25 18:32 | NUR ---
Problems reprioritized. Patient report given, questions answered & plan of care reviewed with YARELI Judge.
[2020-11-25 20:10] VITALS: BP 126/84
[2020-11-25 22:34] VITALS: BP 130/87
[2020-11-26] MEDS: diltiazem 30mg tablet PO SCH ×4 (02:10→19:19)
[2020-11-26 02:35] VITALS: BP 142/79
[2020-11-26] MEDS: HYDROcodone/acetaminophen 5mg/325mg tablet PO PRN ×3 (04:34→19:22)
[2020-11-26 06:00] VITALS: BP 152/86
--- NOTE | 2020-11-26 06:21 | NUR ---
Patient in room PCU 3025. I have received report from Nu DOWNS and had the opportunity to ask questions and assume patient care.
[2020-11-26] MEDS: lactose-reduced food (Ensure Enlive) - 237ml bottle PO SCH ×3 (08:00→18:00)
[2020-11-26] MEDS: zinc oxide ointment 30gm tube TP SCH ×2 (08:00→20:00)
[2020-11-26] MEDS: DOMEBORO TP SCH (08:00)
[2020-11-26] MEDS: linezolid 600mg tablet PO SCH ×2 (08:13→19:20)
[2020-11-26] MEDS: oxybutynin 5mg tablet PO SCH ×2 (08:13→19:20)
[2020-11-26] MEDS: apixaban 5mg tablet PO SCH ×2 (08:14→19:20)
[2020-11-26] MEDS: sodium chloride 1gm tablet PO SCH ×4 (08:14→19:21)
[2020-11-26] MEDS: docusate sod 100mg capsule PO SCH ×2 (08:14→19:20)
[2020-11-26] MEDS: anastrozole 1 MG tablet PO SCH (08:14)
[2020-11-26] MEDS: thiamine 100mg tablet PO SCH (08:14)
[2020-11-26] MEDS: famotidine 20mg tablet PO SCH ×2 (08:14→19:20)
[2020-11-26] MEDS: metoprolol succinate 25mg (24-HOUR) SR. Tablet PO SCH (08:14)
[2020-11-26] MEDS: multivitamins, therapeutics tablet PO SCH (08:14)
[2020-11-26] MEDS: levoTHYROXINE 25mcg tablet PO SCH (08:14)
[2020-11-26] MEDS: folic acid 1mg tablet PO SCH (08:14)
[2020-11-26] MEDS: lactobacillus rhamnosus 10,000 MMU CELLS/CAPSULE PO SCH ×2 (08:14→19:20)
[2020-11-26 08:19] LABS: BASOPHILS % (AUTO) 0.4 % (0-1); EOSINOPHILS % (AUTO) 0.6 % (0-6); HEMATOCRIT 34.7 % (35.0-45.0); HEMOGLOBIN 11.1 g/dl (12.0-16.0); LYMPHOCYTES # (AUTO) 0.7 X10'3 (1.1-4.8); LYMPHOCYTES % (AUTO) 14.1 % (21-51); MEAN CORPUSCULAR HEMOGLOBIN 34.1 PG (27.0-31.0); MEAN CORPUSCULAR HGB CONC 32.1 g/dL (33.0-36.5); MEAN CORPUSCULAR VOLUME 106.1 FL (78-98); MEAN PLATELET VOLUME 8.6 FL (7.4-10.4); MONOCYTES # (AUTO) 0.3 X10'3 (0-0.9); MONOCYTES % (AUTO) 6.7 % (2-12); NEUTROPHILS # (AUTO) 3.9 X10'3 (1.8-7.7); NEUTROPHILS % (AUTO) 78.2 % (42-75); PLATELET COUNT 156 X10'3 (140-440); RED BLOOD COUNT 3.27 X10'6 (4.20-5.60); RED CELL DISTRIBUTION WIDTH 18.9 % (11.5-14.5)
[2020-11-26 08:43] LABS: ALBUMIN 2.1 G/DL (3.4-5.0); ANION GAP 6 (8-16); BLOOD UREA NITROGEN 8 MG/DL (7-18); BUN/CREATININE RATIO 14.5 (6.6-38.0); CALCIUM 8.1 MG/DL (8.5-10.1); CHLORIDE 98 MMOL/L (99-107); CREATININE 0.55 MG/DL (0.40-0.90); GLUCOSE 79 MG/DL (70-104); MAGNESIUM 1.9 MG/DL (1.5-2.4); PHOSPHORUS 3.8 MG/DL (2.3-4.5); POTASSIUM 4.2 MMOL/L (3.5-5.1); SODIUM 131 MMOL/L (135-145); eGFR > 90 ML/MIN
[2020-11-26 09:25] LABS: ANISOCYTOSIS 2+; PLATELET ESTIMATE NORMAL
[2020-11-26 09:26] LABS: HYPOCHROMASIA 1+; SCHISTOCYTES FEW
[2020-11-26] MEDS: LORazepam 0.5 MG tablet PO PRN ×2 (10:09→19:21)
[2020-11-26 11:00] VITALS: BP 135/85
[2020-11-26 15:00] VITALS: BP 139/102
[2020-11-26 18:00] VITALS: BP 136/73
--- NOTE | 2020-11-26 18:30 | NUR ---
Patient in room PCU 3025. I have received report from YARELI Pacheco and had the opportunity to ask questions and assume patient care.
--- NOTE | 2020-11-26 18:46 | NUR ---
Problems reprioritized. Patient report given, questions answered & plan of care reviewed with Adenike DOWNS.
[2020-11-26 22:00] VITALS: BP 137/67
[2020-11-27] MEDS: diltiazem 30mg tablet PO SCH ×4 (01:32→19:21)
[2020-11-27] MEDS: HYDROcodone/acetaminophen 5mg/325mg tablet PO PRN ×3 (01:33→17:35)
[2020-11-27] MEDS: DOMEBORO TP SCH ×3 (01:35→20:00)
[2020-11-27 02:00] VITALS: BP 132/84
[2020-11-27] MEDS: LORazepam 0.5 MG tablet PO PRN ×3 (03:36→21:51)
[2020-11-27 06:00] VITALS: BP 126/76
[2020-11-27 06:21] LABS: BASOPHILS % (AUTO) 0.5 % (0-1); HEMATOCRIT 32.5 % (35.0-45.0); HEMOGLOBIN 10.7 g/dl (12.0-16.0); LYMPHOCYTES # (AUTO) 0.7 X10'3 (1.1-4.8); LYMPHOCYTES % (AUTO) 17.4 % (21-51); MEAN CORPUSCULAR HEMOGLOBIN 34.6 PG (27.0-31.0); MEAN CORPUSCULAR HGB CONC 32.9 g/dL (33.0-36.5); MEAN CORPUSCULAR VOLUME 105.1 FL (78-98); MEAN PLATELET VOLUME 8.3 FL (7.4-10.4); MONOCYTES # (AUTO) 0.4 X10'3 (0-0.9); MONOCYTES % (AUTO) 8.6 % (2-12); NEUTROPHILS # (AUTO) 3.1 X10'3 (1.8-7.7); NEUTROPHILS % (AUTO) 72.5 % (42-75); PLATELET COUNT 153 X10'3 (140-440); RED BLOOD COUNT 3.09 X10'6 (4.20-5.60); RED CELL DISTRIBUTION WIDTH 18.3 % (11.5-14.5); WHITE BLOOD COUNT 4.2 X10'3 (4.5-11.0)
--- NOTE | 2020-11-27 06:31 | NUR ---
Problems reprioritized. Patient bedside report given, questions answered & plan of care reviewed with YARELI Pacheco.
--- NOTE | 2020-11-27 06:37 | NUR ---
Patient in room PCU 3025. I have received report from Adenike DOWNS and had the opportunity to ask questions and assume patient care.
[2020-11-27 06:50] LABS: ALBUMIN 1.9 G/DL (3.4-5.0); ANION GAP 8 (8-16); BLOOD UREA NITROGEN 9 MG/DL (7-18); BUN/CREATININE RATIO 13.2 (6.6-38.0); CALCIUM 7.8 MG/DL (8.5-10.1); CHLORIDE 99 MMOL/L (99-107); CREATININE 0.68 MG/DL (0.40-0.90); MAGNESIUM 1.8 MG/DL (1.5-2.4); PHOSPHORUS 3.9 MG/DL (2.3-4.5); POTASSIUM 4.2 MMOL/L (3.5-5.1); SODIUM 133 MMOL/L (135-145); TOTAL CARBON DIOXIDE 26.3 MMOL/L (24-32); eGFR 88 ML/MIN
[2020-11-27 06:52] LABS: GLUCOSE 79 MG/DL (70-104)
[2020-11-27] MEDS: levoTHYROXINE 25mcg tablet PO SCH (07:57)
[2020-11-27] MEDS: apixaban 5mg tablet PO SCH ×2 (07:57→19:20)
[2020-11-27] MEDS: linezolid 600mg tablet PO SCH ×2 (07:57→19:20)
[2020-11-27] MEDS: lactobacillus rhamnosus 10,000 MMU CELLS/CAPSULE PO SCH ×2 (07:58→19:21)
[2020-11-27] MEDS: thiamine 100mg tablet PO SCH (07:58)
[2020-11-27] MEDS: sodium chloride 1gm tablet PO SCH ×4 (07:58→19:21)
[2020-11-27] MEDS: multivitamins, therapeutics tablet PO SCH (07:58)
[2020-11-27] MEDS: folic acid 1mg tablet PO SCH (07:58)
[2020-11-27] MEDS: oxybutynin 5mg tablet PO SCH ×2 (07:58→19:21)
[2020-11-27] MEDS: famotidine 20mg tablet PO SCH ×2 (07:58→19:21)
[2020-11-27] MEDS: anastrozole 1 MG tablet PO SCH (07:59)
[2020-11-27] MEDS: metoprolol succinate 25mg (24-HOUR) SR. Tablet PO SCH (07:59)
[2020-11-27] MEDS: lactose-reduced food (Ensure Enlive) - 237ml bottle PO SCH ×3 (08:00→18:00)
[2020-11-27] MEDS: zinc oxide ointment 30gm tube TP SCH ×2 (08:00→20:00)
[2020-11-27] MEDS: docusate sod 100mg capsule PO SCH ×2 (08:00→19:23)
[2020-11-27 11:00] VITALS: BP 132/79
--- NOTE | 2020-11-27 14:26 | NUR ---
Reassessment: Per [facility] note patient's wounds are healing in different stages. Pt continues eating poorly with average 25-50% PO intake and mostly refusing ONS. Pt seen at bedside states she just can't eat a lot of food at once and reports she would be able to eat more if she could hold on to her meal tray for a little longer. Pt states she has not reported this to her RN and has not requested to keep her tray longer. RD encouraged pt to advocate for self and informed her about the nourishment room if she would like a snack between meals. Pt reports not drinking the ONS and states she will but then later requests to no longer receive them as she will likely not drink them. Information obtained from pt will be d/w RN. Pt provided with alternative menu to provide additional food options. Pt denies food preferences at this time and states she would like to continue receiving cottage cheese WB. Pt provided with RD contact information and encouraged to reach out. LB 11/27. Will continue to follow closely. Recommendations: 1) Continue regular diet; encourage PO intake 2) Discontinue Ensure Enlive TID since pt mostly refusing 3) [place] food preferences: cottage cheese with salt/pepper WB, lemon douglas soda BIDLD 4) Continue routine Thiamine, Folic acid, and MVI for EtOH hx and elevated MCV 5) Routine Bowel care 6) Scaled wt this admit; subsequent weekly scaled weights Addendum: 11/27/20 at [address] Amended: Links added.
[2020-11-27 15:00] VITALS: BP 128/83
--- NOTE | 2020-11-27 15:09 | NUR ---
Pt not drinking dietary supplements, per dietary request the order for supplements have been discontinued.
[2020-11-27 18:00] VITALS: BP 136/80
--- NOTE | 2020-11-27 18:09 | NUR ---
Problems reprioritized. Patient report given, questions answered & plan of care reviewed with Adenike DOWNS.
--- NOTE | 2020-11-27 18:36 | NUR ---
Patient in room PCU 3025. I have received bedside report from YARELI Pacheco and had the opportunity to ask questions and assume patient care.
[2020-11-27 22:00] VITALS: BP 127/78
[2020-11-28] MEDS: HYDROcodone/acetaminophen 5mg/325mg tablet PO PRN ×4 (01:06→21:08)
[2020-11-28] MEDS: diltiazem 30mg tablet PO SCH ×4 (01:06→21:07)
[2020-11-28 02:00] VITALS: BP 147/62
[2020-11-28 06:00] VITALS: BP 128/75
--- NOTE | 2020-11-28 06:14 | NUR ---
Problems reprioritized. Patient bedside report given, questions answered & plan of care reviewed with YARELI Pacheco.
[2020-11-28 06:30] LABS: ANION GAP 9 (8-16); BLOOD UREA NITROGEN 10 MG/DL (7-18); BUN/CREATININE RATIO 14.7 (6.6-38.0); CALCIUM 7.8 MG/DL (8.5-10.1); CHLORIDE 100 MMOL/L (99-107); CREATININE 0.68 MG/DL (0.40-0.90); GLUCOSE 82 MG/DL (70-104); MAGNESIUM 1.8 MG/DL (1.5-2.4); PHOSPHORUS 3.6 MG/DL (2.3-4.5); POTASSIUM 3.6 MMOL/L (3.5-5.1); SODIUM 133 MMOL/L (135-145); TOTAL CARBON DIOXIDE 23.8 MMOL/L (24-32); eGFR 88 ML/MIN
--- NOTE | 2020-11-28 06:31 | NUR ---
Patient in room PCU 3025. I have received report from Adenike DOWNS and had the opportunity to ask questions and assume patient care.
[2020-11-28 06:36] LABS: BASOPHILS % (AUTO) 0.4 % (0-1); HEMATOCRIT 33.1 % (35.0-45.0); HEMOGLOBIN 10.8 g/dl (12.0-16.0); LYMPHOCYTES # (AUTO) 0.6 X10'3 (1.1-4.8); LYMPHOCYTES % (AUTO) 13.9 % (21-51); MEAN CORPUSCULAR HEMOGLOBIN 34.5 PG (27.0-31.0); MEAN CORPUSCULAR HGB CONC 32.8 g/dL (33.0-36.5); MEAN CORPUSCULAR VOLUME 105.1 FL (78-98); MEAN PLATELET VOLUME 8.6 FL (7.4-10.4); MONOCYTES # (AUTO) 0.3 X10'3 (0-0.9); MONOCYTES % (AUTO) 7.3 % (2-12); NEUTROPHILS # (AUTO) 3.3 X10'3 (1.8-7.7); NEUTROPHILS % (AUTO) 77.4 % (42-75); PLATELET COUNT 134 X10'3 (140-440); RED BLOOD COUNT 3.15 X10'6 (4.20-5.60); RED CELL DISTRIBUTION WIDTH 18.4 % (11.5-14.5); WHITE BLOOD COUNT 4.3 X10'3 (4.5-11.0)
[2020-11-28] MEDS: levoTHYROXINE 25mcg tablet PO SCH (07:00)
[2020-11-28] MEDS: docusate sod 100mg capsule PO SCH ×2 (08:00→20:00)
[2020-11-28] MEDS: DOMEBORO TP SCH ×2 (08:00→20:00)
[2020-11-28] MEDS: anastrozole 1 MG tablet PO SCH (08:35)
[2020-11-28] MEDS: thiamine 100mg tablet PO SCH (08:35)
[2020-11-28] MEDS: lactobacillus rhamnosus 10,000 MMU CELLS/CAPSULE PO SCH ×2 (08:36→21:06)
[2020-11-28] MEDS: apixaban 5mg tablet PO SCH ×2 (08:36→21:07)
[2020-11-28] MEDS: famotidine 20mg tablet PO SCH ×2 (08:36→21:05)
[2020-11-28] MEDS: multivitamins, therapeutics tablet PO SCH (08:36)
[2020-11-28] MEDS: oxybutynin 5mg tablet PO SCH ×2 (08:36→21:05)
[2020-11-28] MEDS: folic acid 1mg tablet PO SCH (08:37)
[2020-11-28] MEDS: sodium chloride 1gm tablet PO SCH ×4 (08:37→21:07)
[2020-11-28] MEDS: linezolid 600mg tablet PO SCH ×2 (08:37→21:06)
[2020-11-28] MEDS: metoprolol succinate 25mg (24-HOUR) SR. Tablet PO SCH (08:38)
[2020-11-28] MEDS: lactose-reduced food (Ensure Enlive) - 237ml bottle PO SCH ×3 (08:48→21:13)
[2020-11-28] MEDS: zinc oxide ointment 30gm tube TP SCH ×2 (08:48→20:00)
[2020-11-28] MEDS: LORazepam 0.5 MG tablet PO PRN ×2 (08:48→17:11)
[2020-11-28 11:00] VITALS: BP 111/59
[2020-11-28 15:00] VITALS: BP 139/83
--- NOTE | 2020-11-28 18:17 | NUR ---
Problems reprioritized. Patient report given, questions answered & plan of care reviewed with Eufemia DOWNS.
--- NOTE | 2020-11-28 18:38 | NUR ---
Patient in room PCU 3025. I have received report from Junior DOWNS and had the opportunity to ask questions and assume patient care.
[2020-11-28 18:48] VITALS: BP 111/62
[2020-11-28 22:00] VITALS: BP 125/68
[2020-11-29] MEDS: diltiazem 30mg tablet PO SCH ×3 (01:15→13:14)
[2020-11-29] MEDS: LORazepam 0.5 MG tablet PO PRN ×2 (01:15→09:30)
[2020-11-29] MEDS: HYDROcodone/acetaminophen 5mg/325mg tablet PO PRN ×2 (04:10→10:30)
[2020-11-29 06:00] VITALS: BP 119/72
[2020-11-29 06:08] LABS: BASOPHILS % (AUTO) 0.4 % (0-1); EOSINOPHILS % (AUTO) 0.7 % (0-6); HEMATOCRIT 31.5 % (35.0-45.0); HEMOGLOBIN 10.3 g/dl (12.0-16.0); LYMPHOCYTES # (AUTO) 0.6 X10'3 (1.1-4.8); LYMPHOCYTES % (AUTO) 12.8 % (21-51); MEAN CORPUSCULAR HEMOGLOBIN 34.6 PG (27.0-31.0); MEAN CORPUSCULAR HGB CONC 32.7 g/dL (33.0-36.5); MEAN CORPUSCULAR VOLUME 105.7 FL (78-98); MEAN PLATELET VOLUME 8.6 FL (7.4-10.4); MONOCYTES # (AUTO) 0.4 X10'3 (0-0.9); MONOCYTES % (AUTO) 7.6 % (2-12); NEUTROPHILS # (AUTO) 3.6 X10'3 (1.8-7.7); NEUTROPHILS % (AUTO) 78.5 % (42-75); PLATELET COUNT 130 X10'3 (140-440); RED BLOOD COUNT 2.98 X10'6 (4.20-5.60); RED CELL DISTRIBUTION WIDTH 18.1 % (11.5-14.5); WHITE BLOOD COUNT 4.7 X10'3 (4.5-11.0)
--- NOTE | 2020-11-29 06:15 | NUR ---
Problems reprioritized. Patient report given, questions answered & plan of care reviewed with Tonia DOWNS.
--- NOTE | 2020-11-29 06:15 | NUR ---
Patient in room PCU 3025. I have received report from Makayla DOWNS and had the opportunity to ask questions and assume patient care.
[2020-11-29 06:18] LABS: ALBUMIN 2.1 G/DL (3.4-5.0); ANION GAP 7 (8-16); BLOOD UREA NITROGEN 11 MG/DL (7-18); CHLORIDE 99 MMOL/L (99-107); CREATININE 0.61 MG/DL (0.40-0.90); GLUCOSE 84 MG/DL (70-104); MAGNESIUM 1.8 MG/DL (1.5-2.4); PHOSPHORUS 3.5 MG/DL (2.3-4.5); POTASSIUM 3.9 MMOL/L (3.5-5.1); SODIUM 132 MMOL/L (135-145); eGFR > 90 ML/MIN
[2020-11-29] MEDS: apixaban 5mg tablet PO SCH (07:45)
[2020-11-29] MEDS: lactobacillus rhamnosus 10,000 MMU CELLS/CAPSULE PO SCH (07:45)
[2020-11-29] MEDS: levoTHYROXINE 25mcg tablet PO SCH (07:45)
[2020-11-29] MEDS: folic acid 1mg tablet PO SCH (07:46)
[2020-11-29] MEDS: oxybutynin 5mg tablet PO SCH (07:46)
[2020-11-29] MEDS: multivitamins, therapeutics tablet PO SCH (07:46)
[2020-11-29] MEDS: famotidine 20mg tablet PO SCH (07:46)
[2020-11-29] MEDS: linezolid 600mg tablet PO SCH (07:46)
[2020-11-29] MEDS: sodium chloride 1gm tablet PO SCH ×2 (07:46→13:14)
[2020-11-29] MEDS: thiamine 100mg tablet PO SCH (07:46)
[2020-11-29] MEDS: metoprolol succinate 25mg (24-HOUR) SR. Tablet PO SCH (07:46)
[2020-11-29] MEDS: anastrozole 1 MG tablet PO SCH (07:54)
[2020-11-29] MEDS: zinc oxide ointment 30gm tube TP SCH (07:55)
[2020-11-29] MEDS: docusate sod 100mg capsule PO SCH (08:00)
[2020-11-29] MEDS: lactose-reduced food (Ensure Enlive) - 237ml bottle PO SCH (08:02)
[2020-11-29] MEDS: DOMEBORO TP SCH (09:32)
[2020-11-29] MEDS ORDERED: THIA50TA10 PO (13:18)
[2020-11-29] MEDS ORDERED: DILT30TA2 PO (13:18)
[2020-11-29] MEDS ORDERED: LACT1CAP26 PO (13:18)
[2020-11-29] MEDS ORDERED: FOLI0.4T6 PO (13:18)
[2020-11-29] MEDS ORDERED: MULT-25 PO (13:18)
[2020-11-29] MEDS ORDERED: ZINC OXIDE TP (13:18)
[2020-11-29] MEDS ORDERED: LEVO25TA7 PO (13:18)
[2020-11-29] MEDS ORDERED: DOCU100C40 PO (13:18)
[2020-11-29] MEDS ORDERED: SODI1TAB2 PO (13:18)
--- NOTE | 2020-11-29 13:57 | NUR ---
1345- Patient stable for discharge and anxious to go home. PT sitting in wheelchair. No PIV on patient. Telemetry removed. Patient refused to take photos of wounds upon discharge. Discharge instructions given and patient verbalized understanding. All personal belongings with patient including FWW. Patient transported via wheelchair to friend's car.
== END 2020-11-29 13:55 | disposition home health service (06) | DRG 463 ==
LOC: ER 19:23 → ED HOLD 11-17 02:09 → ICU 2S 11-17 03:46 → PCU 3S 11-19 15:55
PROVIDERS: ADMIT Internal Medicine Critical Care Medicine; ATTEND Internal Medicine Critical Care Medicine
DX: N39.0 Urinary tract infection, site not specified (principal); L89.159 Pressure ulcer of sacral region, unspecified stage; D69.6 Thrombocytopenia, unspecified; E87.1 Hypo-osmolality and hyponatremia; I48.20 Chronic atrial fibrillation, unspecified; E66.01 Morbid (severe) obesity due to excess calories; E86.0 Dehydration; F10.20 Alcohol dependence, uncomplicated; R74.01 Elevation of levels of liver transaminase levels; F32.9 Major depressive disorder, single episode, unspecified; F41.9 Anxiety disorder, unspecified; I10 Essential (primary) hypertension; K21.9 Gastro-esophageal reflux disease without esophagitis; G89.29 Other chronic pain; Z79.01 Long term (current) use of anticoagulants; Z80.0 Family history of malignant neoplasm of digestive organs; Z85.3 Personal history of malignant neoplasm of breast; Z98.84 Bariatric surgery status; Z90.49 Acquired absence of other specified parts of digestive tract; Z79.899 Other long term (current) drug therapy; Z68.37 Body mass index [BMI] 37.0-37.9, adult
CPT/HCPCS: 36415; 80048; 80053; 81001; 82436; 82550; 82607; 82948; 83605; 83690; 83735; 83880; 83930; 83935; 84100; 84133; 84145; 84300; 84439; 84443; 85007; 85008; 85025; 85610; 85730; 87040; 87077; 87081; 87088; 87186; 93971; 97110; 97116; 97161; 97530; 97535; 99291; G0378; J0696; J1650; J2060; J2270; J3411; J3490; J7030; J7042

== ENCOUNTER 2020-12-02 10:42 | Inpatient (IN) | payer MEDICAID ==
[~2020-12-02] VITALS: Ht 167.6 cm; Wt 104.5 kg
[~2020-12-02 10:42] MED LIST changes: +ANAS1TAB10 PO; -CARCD120C PO; +DILT30TA2 PO; +DOCU100C40 PO; +FOLI0.4T6 PO; -FURO-150 PO; +LACT1CAP26 PO; +LEVO25TA7 PO; -LISI10TA27 PO; -LOP25T PO; +METO-384 PO; +MULT-25 PO; +OXYB10TA30 PO; +SODI1TAB2 PO; +THIA50TA10 PO; +ZINC OXIDE TP
--- NOTE | 2020-12-02 11:09 | NUR ---
VANESSA HARDY [phone]
[2020-12-02] MEDS ORDERED: diltiazem 5mg/ml 5ml inj. IV ONE (11:10)
[2020-12-02] MEDS ORDERED: iohexol 300mg/ml 100ml inj. ONE (11:33)
--- NOTE | 2020-12-02 12:27 | NUR ---
Difficulty obtaining IV access on patient. No picc nurse on sundays. Will continue trying for access.
[2020-12-02 12:57] LABS: BASOPHILS % (AUTO) 0.2 % (0-1); EOSINOPHILS % (AUTO) 0.1 % (0-6); HEMATOCRIT 31.7 % (35.0-45.0); HEMOGLOBIN 10.6 g/dl (12.0-16.0); LYMPHOCYTES # (AUTO) 0.6 X10'3 (1.1-4.8); LYMPHOCYTES % (AUTO) 3.9 % (21-51); MEAN CORPUSCULAR HEMOGLOBIN 34.2 PG (27.0-31.0); MEAN CORPUSCULAR HGB CONC 33.4 g/dL (33.0-36.5); MEAN CORPUSCULAR VOLUME 102.4 FL (78-98); MEAN PLATELET VOLUME 8.5 FL (7.4-10.4); MONOCYTES # (AUTO) 1.6 X10'3 (0-0.9); MONOCYTES % (AUTO) 10.9 % (2-12); NEUTROPHILS # (AUTO) 12.4 X10'3 (1.8-7.7); NEUTROPHILS % (AUTO) 84.9 % (42-75); PLATELET COUNT 192 X10'3 (140-440); RED BLOOD COUNT 3.09 X10'6 (4.20-5.60); RED CELL DISTRIBUTION WIDTH 17.2 % (11.5-14.5); WHITE BLOOD COUNT 14.6 X10'3 (4.5-11.0)
[2020-12-02 13:18] LABS: ALANINE AMINOTRANSFERASE 29 U/L (12-78); ALBUMIN 2.2 G/DL (3.4-5.0); ALBUMIN/GLOBULIN RATIO 0.5 (1.1-1.5); ALKALINE PHOSPHATASE 154 IU/L (46-116); ANION GAP 9 (8-16); ASPARTATE AMINO TRANSFERASE 31 U/L (10-37); BILIRUBIN,TOTAL 1.5 MG/DL (0.1-1.0); BLOOD UREA NITROGEN 5 MG/DL (7-18); BUN/CREATININE RATIO 7.5 (6.6-38.0); CALCIUM 7.9 MG/DL (8.5-10.1); CHLORIDE 93 MMOL/L (99-107); CREATININE 0.67 MG/DL (0.40-0.90); POTASSIUM 3.8 MMOL/L (3.5-5.1); SODIUM 129 MMOL/L (135-145); TOTAL CARBON DIOXIDE 26.8 MMOL/L (24-32); TOTAL PROTEIN 6.3 G/DL (6.4-8.2); eGFR 89 ML/MIN
--- NOTE | 2020-12-02 13:26 | NUR ---
spoke to sabiha. pt b/p , then , held cardizem. The IV was a difficult start, Romina Cornell placed. Notified Karen to hold cardizem. Hanging liter of Fluid per dr. landis. Pt is educated.
[2020-12-02 13:29] LABS: LIPASE 77 U/L (73-393); TROPONIN I < 0.04 NG/ML (0.0-0.05)
[2020-12-02 13:30] LABS: GLUCOSE 86 MG/DL (70-104)
[2020-12-02] MEDS ORDERED: normal saline 1000ml 1,000 ML IV ONE ×2 (13:30→14:05)
[2020-12-02] MEDS ORDERED: digoxin 250mcg/ml 2ml ampule IV ONE (14:20)
[2020-12-02] MEDS ORDERED: normal saline 1000ML IV soln IVB ONE ×2 (14:20→21:25)
[2020-12-02 14:37] LABS: CLARITY,URINE CLOUDY (Clear); COLOR,URINE YELLOW (Yellow); GLUCOSE, URINE NEGATIVE (Neg); KETONES,URINE 15 mg/dl (Neg); LEUKOCYTE ESTERASE ,URINE TRACE (Neg); NITRITES, URINE POSITIVE (Neg); OCCULT BLOOD,URINE TRACE-INTACT (Neg); PROTEIN,URINE TRACE mg/dl (Neg); UROBILINOGEN,URINE 0.2 E.U/dL (0.2-1.0)
[2020-12-02 14:50] LABS: UA COLLECTION TYPE STRAIGHT CATH
[2020-12-02 14:52] LABS: BACTERIA,URINE 3+ /HPF (Neg); MUCUS STRANDS MANY /LPF (Neg); RBC,URINE 0-2 /HPF (0-2); SQUAMOUS EPITHELIAL CELL,UR MANY /LPF (FEW); WBC CLUMPS,URINE FEW /HPF (NEGATIVE); WBC,URINE 20-30 /HPF (0-4)
[2020-12-02] MEDS ORDERED: CefTRIAXone 2gm/D5W 50ml BAG 50 ML IV ONE (15:30)
--- NOTE | 2020-12-02 17:02 | NUR ---
Patient refusing CT. Order cancelled at this time.
[2020-12-02] MEDS ORDERED: LORazepam 2 mg/ml vial IV ONE (17:20)
--- NOTE | 2020-12-02 17:25 | NUR ---
PT DAUGHTER KELLIE CALLED TO TALK TO HER.
[2020-12-02] MEDS ORDERED: acetaminophen 325mg tablet PO PRN ×2 (20:00)
[2020-12-02] MEDS ORDERED: potassium Cl 20 mEq SR tablet PO PRN (20:00)
[2020-12-02] MEDS: K and/or MAG REPLACEMENT MC SCH (20:00)
[2020-12-02] MEDS ORDERED: diltiazem-D5W 125mg/125ml 125 ML IV SCH (20:00)
[2020-12-02] MEDS ORDERED: ondansetron/PF 4mg/2ml inj IV PRN (20:00)
[2020-12-02] MEDS ORDERED: magnesium 2GM in 50ml NS 50 ML IV PRN (20:00)
[2020-12-02] MEDS ORDERED: magnesium 4gm in 100ml NS 100 ML IV PRN (20:00)
[2020-12-02] MEDS ORDERED: potassium Cl 40MEQ/1/2NS 520ml 520 ML IV PRN ×2 (20:00)
[2020-12-02] MEDS ORDERED: LORazepam 2 mg/ml vial IV PRN (20:00)
[2020-12-02] MEDS ORDERED: magnesium Cl slow-release 64mg tablet PO PRN (20:00)
[2020-12-02 20:07] LABS: URINE AMPHETAMINE SCREEN NEGATIVE (Neg); URINE BARBITUATE SCREEN NEGATIVE (Neg); URINE BENZODIAZEPINES SCREEN NEGATIVE (Neg); URINE CANNABINOID SCREEN NEGATIVE (Neg); URINE COCAINE SCREEN NEGATIVE (Neg); URINE METHADONE SCREEN NEGATIVE (Neg); URINE OPIATE SCREEN NEGATIVE (Neg); URINE PHENCYCLIDINE SCREEN NEGATIVE (Neg)
[2020-12-02] MEDS: diltiazem-NS 100mg/100ml 100 ML IV SCH (20:10)
[2020-12-02] MEDS ORDERED: vancomycin/NS 1 GM ADD-VANTAGE 250 ML IV SCH (20:31)
[2020-12-02] MEDS: normal saline 1000ml 1,000 ML IV SCH (20:38)
[2020-12-02] MEDS ORDERED: albuterol 2.5 MG/3 ML nebule NEB PRN (20:40)
[2020-12-02] MEDS: heparin, porcine 5000 units/ml vial SQ SCH (20:43)
[2020-12-02] MEDS ORDERED: DOBUTamine-DoBUTrex 500mg/D5W 250 ML IV SCH (21:25)
--- NOTE | 2020-12-02 21:30 | NUR ---
BP 78/46. Holding cardizem gtt d/t low bp. Paged Dr. Rojas and spoke via telephone. Orders to infuse 1LNS bolus x 1. MD also placing orders to start Dobutamine gtt. Will continue to monitor.
--- NOTE | 2020-12-02 22:07 | NUR ---
Pt has bleeding/excoriated skins to groin/pannus and buttocks. Skins photographed and requested an order for palmer cath placement from Dr. Rojas but refused d/t UTI.
--- NOTE | 2020-12-02 22:30 | NUR ---
Assumed care of patient- report recieved from Karen DOWNS.
[2020-12-03] VITALS (10 sets, daily range): BP systolic 99–134; BP diastolic 54–92
--- NOTE | 2020-12-03 01:15 | NUR ---
Night hospitalist Bob notified of patient's skin condition and inability to turn or tolerate purewick- states still does not want patient to have palmer catheter.
[2020-12-03] MEDS: normal saline 1000ml 1,000 ML IV SCH ×4 (04:00→20:00)
--- NOTE | 2020-12-03 04:03 | NUR ---
PAGER ID: [phone] MESSAGE: [id number] KIAN aguilera has order for dobutamine and cardizem, never started in ER. I'm about to start ebonie varela. Would you like the dobutamine started as well? Thanks Nu [phone] Addendum: 12/03/20 at 0445 by Nu KUO RN Per Dr. Rojas start marcela loomis to hold dobutamine.
--- NOTE | 2020-12-03 04:11 | NUR ---
PAGER ID: [phone] MESSAGE: [id number] CINTIA LANGSTON: AFIB HR 130-150, NON SUSTAINING 150s. WOULD YOU LIKE TO START A DRIP? DOBUTAMINE? LISA DOWNS [phone]
[2020-12-03] MEDS: diltiazem-NS 100mg/100ml 100 ML IV SCH (04:40)
[2020-12-03 07:16] LABS: BASOPHILS % (AUTO) 0.2 % (0-1); EOSINOPHILS % (AUTO) 0.6 % (0-6); HEMOGLOBIN 9.3 g/dl (12.0-16.0); LYMPHOCYTES # (AUTO) 0.7 X10'3 (1.1-4.8); LYMPHOCYTES % (AUTO) 11.8 % (21-51); MEAN CORPUSCULAR HEMOGLOBIN 33.8 PG (27.0-31.0); MEAN CORPUSCULAR HGB CONC 32.2 g/dL (33.0-36.5); MEAN CORPUSCULAR VOLUME 104.9 FL (78-98); MEAN PLATELET VOLUME 8.9 FL (7.4-10.4); MONOCYTES # (AUTO) 0.7 X10'3 (0-0.9); MONOCYTES % (AUTO) 12.5 % (2-12); NEUTROPHILS # (AUTO) 4.4 X10'3 (1.8-7.7); NEUTROPHILS % (AUTO) 74.9 % (42-75); PLATELET COUNT 163 X10'3 (140-440); RED BLOOD COUNT 2.77 X10'6 (4.20-5.60); RED CELL DISTRIBUTION WIDTH 17.6 % (11.5-14.5); WHITE BLOOD COUNT 5.9 X10'3 (4.5-11.0)
[2020-12-03 07:25] LABS: ALANINE AMINOTRANSFERASE 22 U/L (12-78); ALBUMIN 1.8 G/DL (3.4-5.0); ALBUMIN/GLOBULIN RATIO 0.5 (1.1-1.5); ALKALINE PHOSPHATASE 123 IU/L (46-116); ANION GAP 10 (8-16); ASPARTATE AMINO TRANSFERASE 24 U/L (10-37); BILIRUBIN,TOTAL 0.7 MG/DL (0.1-1.0); BLOOD UREA NITROGEN 3 MG/DL (7-18); BUN/CREATININE RATIO 6.4 (6.6-38.0); CALCIUM 7.5 MG/DL (8.5-10.1); CHLORIDE 102 MMOL/L (99-107); CREATININE 0.47 MG/DL (0.40-0.90); POTASSIUM 3.6 MMOL/L (3.5-5.1); SODIUM 134 MMOL/L (135-145); TOTAL CARBON DIOXIDE 22.5 MMOL/L (24-32); TOTAL PROTEIN 5.8 G/DL (6.4-8.2); eGFR > 90 ML/MIN
[2020-12-03 07:26] LABS: GLUCOSE 78 MG/DL (70-104)
[2020-12-03] MEDS: albuterol 2.5 MG/3 ML nebule NEB SCH ×5 (08:00→19:46)
[2020-12-03] MEDS: K and/or MAG REPLACEMENT MC SCH ×2 (08:00→20:00)
[2020-12-03] MEDS: lactobacillus rhamnosus 10,000 MMU CELLS/CAPSULE PO SCH ×2 (08:38→20:24)
[2020-12-03] MEDS: levoTHYROXINE 25mcg tablet PO SCH (08:38)
[2020-12-03] MEDS: metoprolol succinate 25mg (24-HOUR) SR. Tablet PO SCH (08:39)
[2020-12-03] MEDS: folic acid 0.4mg tablet PO SCH (08:39)
[2020-12-03] MEDS: multivitamins, therapeutics tablet PO SCH (08:40)
[2020-12-03] MEDS: thiamine 100mg tablet PO SCH (08:40)
[2020-12-03] MEDS: oxybutynin 5mg tablet PO SCH ×2 (08:40→20:24)
[2020-12-03] MEDS: heparin, porcine 5000 units/ml vial SQ SCH (08:41)
[2020-12-03] MEDS: zinc oxide ointment 30gm tube TP SCH ×2 (08:41→20:00)
[2020-12-03] MEDS: sodium chloride 1gm tablet PO SCH ×4 (08:44→20:24)
[2020-12-03] MEDS: anastrozole 1 MG tablet PO SCH (08:44)
--- NOTE | 2020-12-03 09:30 | NUR ---
IV access compromised. High pressure alarming. unable to obtain new access so Charge nurse was consulted and and started IV to L AC -1stick 22g. No othe rveins available. Connected diltiazem to this and call to picc rn for another line made.
[2020-12-03] MEDS: furosemide 40mg/4ml inj IV ONE ×2 (10:40→12:02)
--- NOTE | 2020-12-03 10:45 | NUR ---
F/u with charge regading picc nurse, we are 3rd in line. MD Pacheco aware of line issue s and delay in giving abx
[2020-12-03] MEDS: HYDROcodone/acetaminophen 5mg/325mg tablet PO PRN (12:06)
[2020-12-03] MEDS: diltiazem 30mg tablet PO SCH ×2 (14:00→20:24)
--- NOTE | 2020-12-03 14:20 | NUR ---
PICC RN CALLED THE FLOOR STATING SHE WOULD BE UP SHORTLY TO PLACE IV ACCESS.
--- NOTE | 2020-12-03 15:30 | NUR ---
aprox this time paged md gauthier. gtt stopped. PAGER ID: [phone] MESSAGE: [id number] marisa Boggs: stopped cardizem- HR 100, sbp 89-90 LeeRN [id number]
--- NOTE | 2020-12-03 16:21 | NUR ---
picc nurse arrived to place line.
--- NOTE | 2020-12-03 17:28 | NUR ---
PAGER ID: [phone] MESSAGE: [id number] Tonya Boggs- SBP 112, HR 110. DO you want the CArdizem gtt restarted. ZAFAR [id number]
--- NOTE | 2020-12-03 17:30 | NUR ---
Pharmacy notifieid of delay in admin ofa bx d/t IV access limitation. instructed to hang both now
[2020-12-03] MEDS: CefTRIAXone 2gm/D5W 50ml BAG 50 ML IV SCH (17:33)
--- NOTE | 2020-12-03 18:39 | NUR ---
Per MD Mark loomis gtt, give the held po dose of cardizem now, give lasix tonight and resume 8am and 8pm schedule fo rit tomorrow
--- NOTE | 2020-12-03 18:43 | NUR ---
Problems reprioritized. Patient report given, questions answered & plan of care reviewed with Nu DOWNS .
--- NOTE | 2020-12-03 18:51 | NUR ---
PAGER ID: [phone] MESSAGE: Room 3014b Flakita is on Skuid and has ns @125. Could you d/c or lower rate? Thanks, Nu [phone]
[2020-12-03] MEDS: vancomycin/NS 1 GM ADD-VANTAGE 250 ML IV SCH (20:24)
[2020-12-03] MEDS: furosemide 40mg/4ml inj IV SCH (20:24)
[2020-12-03] MEDS: docusate sod 100mg capsule PO SCH (20:24)
[2020-12-03] MEDS: apixaban 5mg tablet PO SCH (20:24)
[2020-12-03] MEDS: LORazepam 1 MG tablet PO PRN (20:41)
[2020-12-03] MEDS: morphine 2 MG/ML inj. syringe IV PRN (22:30)
[2020-12-04] MEDS: albuterol 2.5 MG/3 ML nebule NEB SCH ×7 (00:40→23:18)
[2020-12-04] MEDS: diltiazem 30mg tablet PO SCH ×4 (01:32→20:43)
[2020-12-04 02:00] VITALS: BP 128/87
[2020-12-04] MEDS: LORazepam 1 MG tablet PO PRN ×3 (03:02→22:25)
[2020-12-04] MEDS: vancomycin/NS 1 GM ADD-VANTAGE 250 ML IV SCH ×2 (05:13→17:30)
[2020-12-04 06:00] VITALS: BP 143/72
[2020-12-04 06:36] LABS: BASOPHILS % (AUTO) 0.5 % (0-1); HEMATOCRIT 26.9 % (35.0-45.0); HEMOGLOBIN 8.7 g/dl (12.0-16.0); LYMPHOCYTES # (AUTO) 0.7 X10'3 (1.1-4.8); LYMPHOCYTES % (AUTO) 14.9 % (21-51); MEAN CORPUSCULAR HEMOGLOBIN 34.1 PG (27.0-31.0); MEAN CORPUSCULAR HGB CONC 32.4 g/dL (33.0-36.5); MEAN CORPUSCULAR VOLUME 105.3 FL (78-98); MEAN PLATELET VOLUME 8.8 FL (7.4-10.4); MONOCYTES # (AUTO) 0.7 X10'3 (0-0.9); MONOCYTES % (AUTO) 14.7 % (2-12); NEUTROPHILS # (AUTO) 3.3 X10'3 (1.8-7.7); NEUTROPHILS % (AUTO) 68.9 % (42-75); PLATELET COUNT 181 X10'3 (140-440); RED BLOOD COUNT 2.55 X10'6 (4.20-5.60); RED CELL DISTRIBUTION WIDTH 17.2 % (11.5-14.5); WHITE BLOOD COUNT 4.8 X10'3 (4.5-11.0)
[2020-12-04 06:53] LABS: ALANINE AMINOTRANSFERASE 19 U/L (12-78); ALBUMIN 1.8 G/DL (3.4-5.0); ALBUMIN/GLOBULIN RATIO 0.5 (1.1-1.5); ALKALINE PHOSPHATASE 110 IU/L (46-116); ANION GAP 10 (8-16); ASPARTATE AMINO TRANSFERASE 20 U/L (10-37); BILIRUBIN,TOTAL 0.5 MG/DL (0.1-1.0); BLOOD UREA NITROGEN 3 MG/DL (7-18); BUN/CREATININE RATIO 5.6 (6.6-38.0); CALCIUM 7.5 MG/DL (8.5-10.1); CHLORIDE 102 MMOL/L (99-107); CREATININE 0.54 MG/DL (0.40-0.90); GLUCOSE 91 MG/DL (70-104); MAGNESIUM 1.7 MG/DL (1.5-2.4); POTASSIUM 3.4 MMOL/L (3.5-5.1); SODIUM 137 MMOL/L (135-145); TOTAL CARBON DIOXIDE 25.2 MMOL/L (24-32); TOTAL PROTEIN 5.7 G/DL (6.4-8.2); eGFR > 90 ML/MIN
[2020-12-04] MEDS: CefTRIAXone 2gm/D5W 50ml BAG 50 ML IV SCH (07:12)
[2020-12-04] MEDS: sodium chloride 1gm tablet PO SCH ×4 (07:13→20:46)
[2020-12-04] MEDS: oxybutynin 5mg tablet PO SCH ×2 (07:13→20:43)
[2020-12-04] MEDS: multivitamins, therapeutics tablet PO SCH (07:14)
[2020-12-04] MEDS: folic acid 0.4mg tablet PO SCH (07:14)
[2020-12-04] MEDS: docusate sod 100mg capsule PO SCH ×2 (07:14→20:43)
[2020-12-04] MEDS: apixaban 5mg tablet PO SCH ×2 (07:14→20:43)
[2020-12-04] MEDS: levoTHYROXINE 25mcg tablet PO SCH (07:14)
[2020-12-04] MEDS: thiamine 100mg tablet PO SCH (07:14)
[2020-12-04] MEDS: lactobacillus rhamnosus 10,000 MMU CELLS/CAPSULE PO SCH ×2 (07:14→20:43)
[2020-12-04] MEDS: metoprolol succinate 25mg (24-HOUR) SR. Tablet PO SCH (07:15)
[2020-12-04] MEDS: HYDROcodone/acetaminophen 5mg/325mg tablet PO PRN ×3 (07:15→23:57)
[2020-12-04] MEDS: furosemide 40mg/4ml inj IV SCH ×2 (07:15→20:45)
[2020-12-04] MEDS: anastrozole 1 MG tablet PO SCH (07:20)
[2020-12-04] MEDS: K and/or MAG REPLACEMENT MC SCH ×2 (07:21→20:45)
[2020-12-04] MEDS: zinc oxide ointment 30gm tube TP SCH ×2 (08:31→20:44)
[2020-12-04] MEDS: morphine 2 MG/ML inj. syringe IV PRN ×2 (08:49→18:36)
[2020-12-04] MEDS ORDERED: digoxin 250mcg/ml 2ml ampule IV ONE (08:58)
[2020-12-04 11:00] VITALS: BP 130/71
[2020-12-04] MEDS: digoxin 250mcg/ml 2ml ampule IV SCH ×2 (14:39→22:32)
[2020-12-04 15:00] VITALS: BP 130/80
[2020-12-04 18:00] VITALS: BP 106/64
[2020-12-04] MEDS: potassium Cl 20 mEq SR tablet PO PRN (20:43)
[2020-12-04] MEDS: ciprofloxacin lact 400MG/200ML 200 ML IV SCH (23:58)
[2020-12-05] VITALS (7 sets, daily range): BP systolic 107–164; BP diastolic 72–99
[2020-12-05] MEDS: diltiazem 30mg tablet PO SCH ×4 (02:30→22:46)
[2020-12-05] MEDS: morphine 2 MG/ML inj. syringe IV PRN ×3 (02:46→23:15)
[2020-12-05] MEDS: albuterol 2.5 MG/3 ML nebule NEB SCH ×6 (04:00→23:29)
[2020-12-05] MEDS ORDERED: VANCOMYCIN LEVEL IV ONE (04:30)
--- NOTE | 2020-12-05 06:00 | NUR ---
Patient in room PCU 3014. I have received report from KENAN DOWNS and had the opportunity to ask questions and assume patient care.
[2020-12-05] MEDS: LORazepam 1 MG tablet PO PRN ×2 (06:22→16:22)
[2020-12-05] MEDS: docusate sod 100mg capsule PO SCH ×2 (07:15→22:46)
[2020-12-05] MEDS: ciprofloxacin lact 400MG/200ML 200 ML IV SCH ×2 (07:15→22:45)
[2020-12-05] MEDS: levoTHYROXINE 25mcg tablet PO SCH (07:15)
[2020-12-05] MEDS: metoprolol succinate 25mg (24-HOUR) SR. Tablet PO SCH (07:15)
[2020-12-05] MEDS: anastrozole 1 MG tablet PO SCH (07:16)
[2020-12-05] MEDS: sodium chloride 1gm tablet PO SCH ×4 (07:16→22:46)
[2020-12-05] MEDS: furosemide 40mg/4ml inj IV SCH ×2 (07:16→22:45)
[2020-12-05] MEDS: oxybutynin 5mg tablet PO SCH ×2 (07:16→22:46)
[2020-12-05] MEDS: folic acid 0.4mg tablet PO SCH (07:16)
[2020-12-05] MEDS: multivitamins, therapeutics tablet PO SCH (07:16)
[2020-12-05] MEDS: potassium Cl 20 mEq SR tablet PO PRN (07:16)
[2020-12-05] MEDS: apixaban 5mg tablet PO SCH ×2 (07:16→22:46)
[2020-12-05] MEDS: thiamine 100mg tablet PO SCH (07:16)
[2020-12-05] MEDS: digoxin 125mcg (0.125mg) tablet PO SCH (07:17)
[2020-12-05] MEDS: lactobacillus rhamnosus 10,000 MMU CELLS/CAPSULE PO SCH ×2 (07:17→22:46)
[2020-12-05] MEDS: K and/or MAG REPLACEMENT MC SCH ×2 (07:18→20:00)
[2020-12-05] MEDS: zinc oxide ointment 30gm tube TP SCH ×2 (07:19→19:29)
[2020-12-05 07:40] LABS: BASOPHILS % (AUTO) 0.8 % (0-1); EOSINOPHILS # (AUTO) 0.1 X10'3 (0-0.9); EOSINOPHILS % (AUTO) 1.8 % (0-6); HEMATOCRIT 34.7 % (35.0-45.0); HEMOGLOBIN 11.3 g/dl (12.0-16.0); LYMPHOCYTES # (AUTO) 0.9 X10'3 (1.1-4.8); LYMPHOCYTES % (AUTO) 19.4 % (21-51); MEAN CORPUSCULAR HEMOGLOBIN 34.5 PG (27.0-31.0); MEAN CORPUSCULAR HGB CONC 32.5 g/dL (33.0-36.5); MEAN CORPUSCULAR VOLUME 106.3 FL (78-98); MEAN PLATELET VOLUME 8.7 FL (7.4-10.4); MONOCYTES # (AUTO) 0.8 X10'3 (0-0.9); MONOCYTES % (AUTO) 16.4 % (2-12); NEUTROPHILS # (AUTO) 2.8 X10'3 (1.8-7.7); NEUTROPHILS % (AUTO) 61.6 % (42-75); PLATELET COUNT 199 X10'3 (140-440); RED BLOOD COUNT 3.26 X10'6 (4.20-5.60); RED CELL DISTRIBUTION WIDTH 18.1 % (11.5-14.5); WHITE BLOOD COUNT 4.6 X10'3 (4.5-11.0)
[2020-12-05 08:11] LABS: ALANINE AMINOTRANSFERASE 25 U/L (12-78); ALBUMIN 2.2 G/DL (3.4-5.0); ALBUMIN/GLOBULIN RATIO 0.5 (1.1-1.5); ALKALINE PHOSPHATASE 123 IU/L (46-116); ASPARTATE AMINO TRANSFERASE 30 U/L (10-37); BILIRUBIN,TOTAL 0.7 MG/DL (0.1-1.0); BLOOD UREA NITROGEN 3 MG/DL (7-18); BUN/CREATININE RATIO 5.6 (6.6-38.0); CALCIUM 7.9 MG/DL (8.5-10.1); CREATININE 0.54 MG/DL (0.40-0.90); GLUCOSE 85 MG/DL (70-104); MAGNESIUM 1.6 MG/DL (1.5-2.4); TOTAL CARBON DIOXIDE 22.8 MMOL/L (24-32); TOTAL PROTEIN 6.6 G/DL (6.4-8.2); VANCOMYCIN,TROUGH 13.9 UG/ML (6.0-14.0); eGFR > 90 ML/MIN
[2020-12-05 08:43] LABS: PLATELET ESTIMATE NORMAL; TOTAL CELLS COUNTED 100
[2020-12-05 08:44] LABS: ANISOCYTOSIS 2+
--- NOTE | 2020-12-05 18:28 | NUR ---
Problems reprioritized. Patient report given, questions answered & plan of care reviewed with YARELI Garcia.
[2020-12-05] MEDS: HYDROcodone/acetaminophen 5mg/325mg tablet PO PRN (19:46)
[2020-12-06] MEDS: HYDROcodone/acetaminophen 5mg/325mg tablet PO PRN ×2 (01:00→08:18)
[2020-12-06] MEDS: diltiazem 30mg tablet PO SCH ×4 (02:18→19:20)
--- NOTE | 2020-12-06 06:00 | NUR ---
Patient in room PCU 3014. I have received report from FANI DOWNS and had the opportunity to ask questions and assume patient care.
[2020-12-06 07:19] VITALS: BP 135/91
[2020-12-06 07:23] LABS: BASOPHILS % (AUTO) 0.7 % (0-1); EOSINOPHILS # (AUTO) 0.1 X10'3 (0-0.9); EOSINOPHILS % (AUTO) 1.8 % (0-6); HEMATOCRIT 28.5 % (35.0-45.0); HEMOGLOBIN 9.2 g/dl (12.0-16.0); LYMPHOCYTES # (AUTO) 1.1 X10'3 (1.1-4.8); MEAN CORPUSCULAR HEMOGLOBIN 33.8 PG (27.0-31.0); MEAN CORPUSCULAR HGB CONC 32.4 g/dL (33.0-36.5); MEAN CORPUSCULAR VOLUME 104.2 FL (78-98); MEAN PLATELET VOLUME 8.4 FL (7.4-10.4); MONOCYTES # (AUTO) 0.6 X10'3 (0-0.9); MONOCYTES % (AUTO) 15.3 % (2-12); NEUTROPHILS # (AUTO) 2.3 X10'3 (1.8-7.7); NEUTROPHILS % (AUTO) 55.2 % (42-75); PLATELET COUNT 234 X10'3 (140-440); RED BLOOD COUNT 2.73 X10'6 (4.20-5.60); RED CELL DISTRIBUTION WIDTH 17.8 % (11.5-14.5); WHITE BLOOD COUNT 4.1 X10'3 (4.5-11.0)
[2020-12-06 07:31] LABS: ALANINE AMINOTRANSFERASE 21 U/L (12-78); ALBUMIN 2.1 G/DL (3.4-5.0); ALBUMIN/GLOBULIN RATIO 0.5 (1.1-1.5); ALKALINE PHOSPHATASE 109 IU/L (46-116); ANION GAP 7 (8-16); ASPARTATE AMINO TRANSFERASE 26 U/L (10-37); BILIRUBIN,TOTAL 0.7 MG/DL (0.1-1.0); BLOOD UREA NITROGEN 4 MG/DL (7-18); BUN/CREATININE RATIO 6.3 (6.6-38.0); CALCIUM 7.7 MG/DL (8.5-10.1); CHLORIDE 102 MMOL/L (99-107); CREATININE 0.63 MG/DL (0.40-0.90); GLUCOSE 91 MG/DL (70-104); MAGNESIUM 1.6 MG/DL (1.5-2.4); PHOSPHORUS 3.9 MG/DL (2.3-4.5); POTASSIUM 3.1 MMOL/L (3.5-5.1); SODIUM 138 MMOL/L (135-145); TOTAL CARBON DIOXIDE 29.3 MMOL/L (24-32); TOTAL PROTEIN 6.1 G/DL (6.4-8.2); eGFR > 90 ML/MIN
[2020-12-06] MEDS: albuterol 2.5 MG/3 ML nebule NEB SCH ×4 (08:15→23:13)
[2020-12-06] MEDS: multivitamins, therapeutics tablet PO SCH (08:16)
[2020-12-06] MEDS: anastrozole 1 MG tablet PO SCH (08:16)
[2020-12-06] MEDS: digoxin 125mcg (0.125mg) tablet PO SCH (08:17)
[2020-12-06] MEDS: folic acid 0.4mg tablet PO SCH (08:17)
[2020-12-06] MEDS: lactobacillus rhamnosus 10,000 MMU CELLS/CAPSULE PO SCH ×2 (08:17→19:22)
[2020-12-06] MEDS: thiamine 100mg tablet PO SCH (08:17)
[2020-12-06] MEDS: oxybutynin 5mg tablet PO SCH ×2 (08:17→19:22)
[2020-12-06] MEDS: metoprolol succinate 25mg (24-HOUR) SR. Tablet PO SCH (08:17)
[2020-12-06] MEDS: levoTHYROXINE 25mcg tablet PO SCH (08:17)
[2020-12-06] MEDS: apixaban 5mg tablet PO SCH ×2 (08:17→19:22)
[2020-12-06] MEDS: sodium chloride 1gm tablet PO SCH (08:17)
[2020-12-06] MEDS: docusate sod 100mg capsule PO SCH ×2 (08:17→19:20)
[2020-12-06] MEDS: zinc oxide ointment 30gm tube TP SCH ×2 (08:18→19:29)
[2020-12-06] MEDS: ciprofloxacin lact 400MG/200ML 200 ML IV SCH ×2 (08:18→19:32)
[2020-12-06] MEDS: furosemide 40mg/4ml inj IV SCH ×2 (08:18→19:23)
[2020-12-06] MEDS: K and/or MAG REPLACEMENT MC SCH ×2 (08:18→20:00)
[2020-12-06 12:02] VITALS: BP 136/69
[2020-12-06] MEDS: HYDROcodone/acetaminophen 10/325mg tab PO PRN ×2 (14:14→18:25)
[2020-12-06 15:51] VITALS: BP 148/83
--- NOTE | 2020-12-06 18:30 | NUR ---
Patient in room PCU 3014. I have received report from YARELI Anderson and had the opportunity to ask questions and assume patient care.
[2020-12-06 19:00] VITALS: BP 125/67
[2020-12-06] MEDS ORDERED: potassium Cl 20 mEq SR tablet PO PRN ×2 (21:40)
[2020-12-06] MEDS ORDERED: potassium Cl 40MEQ/1/2NS 520ml 520 ML IV PRN (21:40)
[2020-12-06] MEDS ORDERED: magnesium 4gm in 100ml NS 100 ML IV PRN (21:40)
[2020-12-06] MEDS ORDERED: magnesium Cl slow-release 64mg tablet PO PRN (21:40)
[2020-12-06 22:00] VITALS: BP 134/72
[2020-12-06] MEDS ORDERED: POTASSIUM BICARB 20meq eff tab 20 MEQ TABLET.EFF PO PRN (23:50)
[2020-12-06] MEDS ORDERED: POTASSIUM BICARBONATE/CIT AC 10 MEQ TABLET.EFF PO PRN (23:50)
[2020-12-07] MEDS: POTASSIUM BICARB 20meq eff tab 20 MEQ TABLET.EFF PO PRN ×4 (00:09→20:16)
--- NOTE | 2020-12-07 00:10 | NUR ---
Patient could not handle IV K, and refused PO pills. She is in agreement to take Effer K .
[2020-12-07] MEDS: HYDROcodone/acetaminophen 10/325mg tab PO PRN ×4 (00:22→18:39)
[2020-12-07] MEDS: diltiazem 30mg tablet PO SCH ×4 (01:58→20:16)
[2020-12-07 02:00] VITALS: BP 136/75
[2020-12-07] MEDS: albuterol 2.5 MG/3 ML nebule NEB SCH ×6 (03:46→23:31)
--- NOTE | 2020-12-07 06:00 | NUR ---
Patient in room PCU 3014. I have received report from EUGENIO DOWNS and had the opportunity to ask questions and assume patient care.
--- NOTE | 2020-12-07 06:10 | NUR ---
Problems reprioritized. Patient report given, questions answered & plan of care reviewed with YARELI Anderson.
--- NOTE | 2020-12-07 06:54 | NUR ---
PT. REFUSED MORNING SVN. NO RESP. DISTRESS OBSERVED
[2020-12-07 07:22] LABS: BASOPHILS % (AUTO) 0.4 % (0-1); EOSINOPHILS # (AUTO) 0.1 X10'3 (0-0.9); HEMATOCRIT 30.6 % (35.0-45.0); LYMPHOCYTES # (AUTO) 0.7 X10'3 (1.1-4.8); LYMPHOCYTES % (AUTO) 17.7 % (21-51); MEAN CORPUSCULAR HEMOGLOBIN 33.5 PG (27.0-31.0); MEAN CORPUSCULAR HGB CONC 32.9 g/dL (33.0-36.5); MEAN CORPUSCULAR VOLUME 101.9 FL (78-98); MEAN PLATELET VOLUME 8.3 FL (7.4-10.4); MONOCYTES # (AUTO) 0.5 X10'3 (0-0.9); MONOCYTES % (AUTO) 13.1 % (2-12); NEUTROPHILS # (AUTO) 2.4 X10'3 (1.8-7.7); NEUTROPHILS % (AUTO) 65.8 % (42-75); PLATELET COUNT 291 X10'3 (140-440); RED CELL DISTRIBUTION WIDTH 17.3 % (11.5-14.5); WHITE BLOOD COUNT 3.7 X10'3 (4.5-11.0)
[2020-12-07 07:32] VITALS: BP 142/92
[2020-12-07] MEDS: K and/or MAG REPLACEMENT MC SCH ×2 (07:33→20:00)
[2020-12-07 07:44] LABS: ALANINE AMINOTRANSFERASE 22 U/L (12-78); ALBUMIN 2.3 G/DL (3.4-5.0); ALBUMIN/GLOBULIN RATIO 0.6 (1.1-1.5); ALKALINE PHOSPHATASE 115 IU/L (46-116); ANION GAP 6 (8-16); ASPARTATE AMINO TRANSFERASE 28 U/L (10-37); BLOOD UREA NITROGEN 3 MG/DL (7-18); BUN/CREATININE RATIO 4.3 (6.6-38.0); CALCIUM 7.8 MG/DL (8.5-10.1); CHLORIDE 100 MMOL/L (99-107); CREATININE 0.69 MG/DL (0.40-0.90); MAGNESIUM 1.6 MG/DL (1.5-2.4); PHOSPHORUS 3.7 MG/DL (2.3-4.5); POTASSIUM 3.2 MMOL/L (3.5-5.1); SODIUM 138 MMOL/L (135-145); TOTAL CARBON DIOXIDE 32.4 MMOL/L (24-32); TOTAL PROTEIN 6.4 G/DL (6.4-8.2); eGFR 86 ML/MIN
[2020-12-07 07:45] LABS: GLUCOSE 93 MG/DL (70-104)
[2020-12-07] MEDS: folic acid 0.4mg tablet PO SCH (08:22)
[2020-12-07] MEDS: thiamine 100mg tablet PO SCH (08:22)
[2020-12-07] MEDS: digoxin 125mcg (0.125mg) tablet PO SCH (08:22)
[2020-12-07] MEDS: lactobacillus rhamnosus 10,000 MMU CELLS/CAPSULE PO SCH ×2 (08:22→20:16)
[2020-12-07] MEDS: metoprolol succinate 25mg (24-HOUR) SR. Tablet PO SCH (08:22)
[2020-12-07] MEDS: docusate sod 100mg capsule PO SCH ×2 (08:22→20:16)
[2020-12-07] MEDS: furosemide 40mg/4ml inj IV SCH ×2 (08:23→20:16)
[2020-12-07] MEDS: zinc oxide ointment 30gm tube TP SCH ×2 (08:23→20:32)
[2020-12-07] MEDS: ciprofloxacin lact 400MG/200ML 200 ML IV SCH ×2 (08:23→20:16)
[2020-12-07] MEDS: oxybutynin 5mg tablet PO SCH ×2 (08:23→20:16)
[2020-12-07] MEDS: anastrozole 1 MG tablet PO SCH (08:23)
[2020-12-07] MEDS: levoTHYROXINE 25mcg tablet PO SCH (08:23)
[2020-12-07] MEDS: multivitamins, therapeutics tablet PO SCH (08:23)
[2020-12-07] MEDS: apixaban 5mg tablet PO SCH ×2 (08:23→20:16)
--- NOTE | 2020-12-07 11:22 | NUR ---
pt refused 1100 svn
[2020-12-07 11:43] VITALS: BP 110/74
--- NOTE | 2020-12-07 14:40 | NUR ---
pt. refused afternoon svn
[2020-12-07 15:45] VITALS: BP 133/80
[2020-12-07 18:00] VITALS: BP 136/70
--- NOTE | 2020-12-07 19:04 | NUR ---
Patient in room PCU 3014. I have received report from BENNIE RN and had the opportunity to ask questions and assume patient care.
--- NOTE | 2020-12-07 19:57 | NUR ---
PT DENIES SOB, O2 SAT 95RA WITHOUT WHEEZE. SHE REFUSES SVN @ THIS TIME. WILL CONTINUE TO MONITOR TONIGHT
[2020-12-07 22:00] VITALS: BP 149/86
[2020-12-08] MEDS: HYDROcodone/acetaminophen 10/325mg tab PO PRN ×3 (00:38→12:29)
[2020-12-08] MEDS: diltiazem 30mg tablet PO SCH ×2 (02:29→09:14)
[2020-12-08 02:41] VITALS: BP 136/83
[2020-12-08] MEDS: albuterol 2.5 MG/3 ML nebule NEB SCH ×3 (03:14→12:00)
--- NOTE | 2020-12-08 06:00 | NUR ---
Patient in room PCU 3014. I have received report from HORTENCIA DOWNS and had the opportunity to ask questions and assume patient care.
--- NOTE | 2020-12-08 06:21 | NUR ---
Problems reprioritized. Patient report given, questions answered & plan of care reviewed with BENNIE RN.
[2020-12-08 07:26] VITALS: BP 120/66
[2020-12-08 07:35] LABS: MAGNESIUM 1.8 MG/DL (1.5-2.4); POTASSIUM 3.2 MMOL/L (3.5-5.1)
[2020-12-08] MEDS: K and/or MAG REPLACEMENT MC SCH (08:00)
[2020-12-08] MEDS: folic acid 0.4mg tablet PO SCH (08:00)
[2020-12-08] MEDS: zinc oxide ointment 30gm tube TP SCH (08:00)
[2020-12-08] MEDS: POTASSIUM BICARB 20meq eff tab 20 MEQ TABLET.EFF PO PRN (09:12)
[2020-12-08] MEDS: apixaban 5mg tablet PO SCH (09:13)
[2020-12-08] MEDS: digoxin 125mcg (0.125mg) tablet PO SCH (09:13)
[2020-12-08] MEDS: docusate sod 100mg capsule PO SCH (09:13)
[2020-12-08] MEDS: thiamine 100mg tablet PO SCH (09:13)
[2020-12-08] MEDS: lactobacillus rhamnosus 10,000 MMU CELLS/CAPSULE PO SCH (09:14)
[2020-12-08] MEDS: anastrozole 1 MG tablet PO SCH (09:14)
[2020-12-08] MEDS: metoprolol succinate 25mg (24-HOUR) SR. Tablet PO SCH (09:14)
[2020-12-08] MEDS: levoTHYROXINE 25mcg tablet PO SCH (09:14)
[2020-12-08] MEDS: multivitamins, therapeutics tablet PO SCH (09:14)
[2020-12-08] MEDS: oxybutynin 5mg tablet PO SCH (09:14)
[2020-12-08] MEDS: furosemide 40mg/4ml inj IV SCH (09:14)
[2020-12-08] MEDS: ciprofloxacin lact 400MG/200ML 200 ML IV SCH (09:15)
[2020-12-08 12:07] VITALS: BP 107/69
--- NOTE | 2020-12-08 12:19 | NUR ---
Noted pt with active discharge orders, garbage pick up man time around noon per CM notes. Pt receiving routine Thiamine, Folic acid, and MVI for EtOH hx. Pt currently not meeting estimated nutrient needs on CHO controlled diet, though historically does not eat well during admission despite receiving food preference and with poor acceptance of ONS despite encouragement. [facility] 12/06, receiving routine bowel care. Will f/u for full nutrition assessment if pt does not discharge. Addendum: 12/08/20 at [address] Amended: Links added.
== END 2020-12-08 12:40 | DRG 463 ==
LOC: ER 10:43 → UNDOADMIN 19:56 → ED HOLD 19:56 → PCU 3S 12-03 03:15
PROVIDERS: ADMIT Internal Medicine; ATTEND Family Medicine
PROC: BW251ZZ Computerized Tomography (CT Scan) of Chest, Abdomen and Pelvis using Low Osmolar Contrast (ICD-10-PCS; principal; 2020-12-02)
DX: N39.0 Urinary tract infection, site not specified (principal); L89.159 Pressure ulcer of sacral region, unspecified stage; I95.9 Hypotension, unspecified; E87.1 Hypo-osmolality and hyponatremia; I48.91 Unspecified atrial fibrillation; E66.01 Morbid (severe) obesity due to excess calories; L03.116 Cellulitis of left lower limb; L97.119 Non-pressure chronic ulcer of right thigh with unspecified severity; F41.9 Anxiety disorder, unspecified; F10.20 Alcohol dependence, uncomplicated; W18.39XA Other fall on same level, initial encounter; Y93.01 Activity, walking, marching and hiking; Z20.822 Contact with and (suspected) exposure to COVID-19; D64.9 Anemia, unspecified; F17.210 Nicotine dependence, cigarettes, uncomplicated; G89.29 Other chronic pain; I10 Essential (primary) hypertension; L03.314 Cellulitis of groin; Z80.0 Family history of malignant neoplasm of digestive organs; Z85.3 Personal history of malignant neoplasm of breast; Z98.84 Bariatric surgery status; Y92.098 Other place in other non-institutional residence as the place of occurrence of the external cause; Y99.8 Other external cause status; Z90.49 Acquired absence of other specified parts of digestive tract; Z71.41 Alcohol abuse counseling and surveillance of alcoholic; Z68.37 Body mass index [BMI] 37.0-37.9, adult
CPT/HCPCS: 36415; 71045; 71260; 74177; 76937; 80053; 80162; 80202; 80305; 80320; 81001; 82728; 83540; 83550; 83605; 83690; 83735; 84100; 84132; 84145; 84439; 84443; 84484; 85007; 85025; 87040; 87077; 87081; 87088; 87186; 87635; 93005; 93306; 94640; 94760; 96365; 96375; 97110; 97116; 97161; 97530; 99285; G0378; J0696; J0744; J1160; J1644; J1940; J2060; J2270; J3370; J3480; J3490; J7030; Q9967

== ENCOUNTER 2021-01-27 06:36 | Inpatient (IN) | payer MEDICAID ==
[~2021-01-27] VITALS: Ht 167.6 cm; Wt 104.5 kg
[~2021-01-27 06:36] MED LIST changes: -FOLI0.4T6 PO
[2021-01-27 07:44] LABS: BASOPHILS % (AUTO) 0.4 % (0-1); EOSINOPHILS # (AUTO) 0.2 X10'3 (0-0.9); EOSINOPHILS % (AUTO) 2.3 % (0-6); HEMATOCRIT 31.7 % (35.0-45.0); HEMOGLOBIN 10.4 g/dl (12.0-16.0); LYMPHOCYTES # (AUTO) 1.1 X10'3 (1.1-4.8); LYMPHOCYTES % (AUTO) 12.6 % (21-51); MEAN CORPUSCULAR HEMOGLOBIN 29.9 PG (27.0-31.0); MEAN CORPUSCULAR HGB CONC 32.8 g/dL (33.0-36.5); MEAN CORPUSCULAR VOLUME 91.1 FL (78-98); MEAN PLATELET VOLUME 8.7 FL (7.4-10.4); MONOCYTES # (AUTO) 0.7 X10'3 (0-0.9); MONOCYTES % (AUTO) 7.8 % (2-12); NEUTROPHILS # (AUTO) 6.5 X10'3 (1.8-7.7); NEUTROPHILS % (AUTO) 76.9 % (42-75); PLATELET COUNT 321 X10'3 (140-440); RED BLOOD COUNT 3.48 X10'6 (4.20-5.60); RED CELL DISTRIBUTION WIDTH 15.5 % (11.5-14.5); WHITE BLOOD COUNT 8.5 X10'3 (4.5-11.0)
[2021-01-27 07:53] LABS: D-DIMER 1.88 MG/L FEU (0-0.50)
[2021-01-27 07:57] LABS: ALANINE AMINOTRANSFERASE 10 U/L (12-78); ALBUMIN 2.8 G/DL (3.4-5.0); ALBUMIN/GLOBULIN RATIO 0.6 (1.1-1.5); ALKALINE PHOSPHATASE 178 IU/L (46-116); ANION GAP 8 (8-16); ASPARTATE AMINO TRANSFERASE 24 U/L (10-37); BILIRUBIN,TOTAL 1.3 MG/DL (0.1-1.0); CHLORIDE 97 MMOL/L (99-107); POTASSIUM 3.7 MMOL/L (3.5-5.1); SODIUM 131 MMOL/L (135-145); TOTAL CARBON DIOXIDE 26.3 MMOL/L (24-32); TOTAL PROTEIN 7.5 G/DL (6.4-8.2)
[2021-01-27 08:04] LABS: BLOOD UREA NITROGEN 2 MG/DL (7-18); BUN/CREATININE RATIO 3.2 (6.6-38.0); CREATININE 0.63 MG/DL (0.40-0.90); eGFR > 90 ML/MIN
[2021-01-27 08:06] LABS: GLUCOSE 96 MG/DL (70-104)
[2021-01-27] MEDS ORDERED: iohexol 350MG/ML 100ml bottle IV ONE ×2 (13:51→17:51)
[2021-01-27] MEDS ORDERED: ondansetron/PF 4mg/2ml inj IV ONE (14:10)
[2021-01-27] MEDS ORDERED: morphine 4 MG/ML inj SYRINge IV ONE ×2 (14:10→14:55)
[2021-01-27] MEDS ORDERED: HYDROcodone/acetaminophen 10/325mg tab PO ONE (14:20)
[2021-01-27] MEDS ORDERED: midazolam 1 mg/ML 2ml injection IV ONE (15:45)
--- NOTE | 2021-01-27 18:43 | NUR ---
DR. FELDER WENT OVER TO CT, AND ADMINISTERED THE VERSED... ONLY 2MG WAS GIVEN TO PT.
[2021-01-27] MEDS ORDERED: heparin 10,000 units/1 ML INJ IV ONE (20:00)
[2021-01-27] MEDS ORDERED: magnesium Cl slow-release 64mg tablet PO PRN (20:15)
[2021-01-27] MEDS ORDERED: magnesium hydroxide 30ml (MOM) UD suspension PO PRN (20:15)
[2021-01-27] MEDS ORDERED: magnesium 2GM in 50ml NS 50 ML IV PRN (20:15)
[2021-01-27] MEDS ORDERED: heparin 10,000 units/1 ML INJ IV PRN (20:15)
[2021-01-27] MEDS ORDERED: heparin 25,000 UNIT/250ml bag 250 ML IV SCH (20:15)
[2021-01-27] MEDS ORDERED: ondansetron/PF 4mg/2ml inj IV PRN (20:15)
[2021-01-27] MEDS ORDERED: acetaminophen 325mg tablet PO PRN ×2 (20:15)
[2021-01-27] MEDS ORDERED: potassium Cl 40MEQ/1/2NS 520ml 520 ML IV PRN ×2 (20:15)
[2021-01-27] MEDS ORDERED: mag hydrox/Alum hydrox/simeth 30ml oral suspension PO PRN (20:15)
[2021-01-27] MEDS ORDERED: magnesium 4gm in 100ml NS 100 ML IV PRN (20:15)
[2021-01-27] MEDS ORDERED: potassium Cl 20 mEq SR tablet PO PRN ×2 (20:15)
[2021-01-27] MEDS ORDERED: nitroGLYCERIN 0.4mg SUBLingual tab SL PRN (21:15)
[2021-01-27] MEDS ORDERED: regadenoson 0.4mg/5ml syringe IV PRN (21:15)
[2021-01-27] MEDS ORDERED: metoprolol tartrate 1mg/ml inj IV PRN (21:15)
[2021-01-27] MEDS ORDERED: aminophylline 250mg/10ml inj. IV PRN (21:15)
[2021-01-27] MEDS: heparin 25,000 UNIT/250ml bag 250 ML IV SCH (21:26)
[2021-01-27 22:00] VITALS: BP 90/49
[2021-01-27] MEDS: normal saline 1000ml 1,000 ML IV SCH (22:04)
--- NOTE | 2021-01-27 22:50 | NUR ---
PT IS POLITE AND COOPERATIVE. HEPARIN GTT INFUSING. ADMISSION ORDERS WRITTEN BY DR. JAVIER. AWAITING IPA
[2021-01-27 23:50] LABS: PARTIAL THROMBOPLASTIN TIME 32 SECONDS (22-32)
--- NOTE | 2021-01-28 02:14 | NUR ---
pt with stable vs. reports chronic pain and increased discomforta to her hips and buttock from the gurney. Awaiting ipa. sats on 3L NC 100%
[2021-01-28 03:58] LABS: BASOPHILS % (AUTO) 0.5 % (0-1); EOSINOPHILS # (AUTO) 0.3 X10'3 (0-0.9); EOSINOPHILS % (AUTO) 3.9 % (0-6); HEMATOCRIT 28.7 % (35.0-45.0); LYMPHOCYTES # (AUTO) 1.2 X10'3 (1.1-4.8); LYMPHOCYTES % (AUTO) 16.3 % (21-51); MEAN CORPUSCULAR HEMOGLOBIN 29.4 PG (27.0-31.0); MEAN CORPUSCULAR HGB CONC 31.3 g/dL (33.0-36.5); MEAN CORPUSCULAR VOLUME 93.9 FL (78-98); MEAN PLATELET VOLUME 8.6 FL (7.4-10.4); MONOCYTES # (AUTO) 0.7 X10'3 (0-0.9); MONOCYTES % (AUTO) 8.8 % (2-12); NEUTROPHILS # (AUTO) 5.4 X10'3 (1.8-7.7); NEUTROPHILS % (AUTO) 70.5 % (42-75); PLATELET COUNT 298 X10'3 (140-440); RED BLOOD COUNT 3.06 X10'6 (4.20-5.60); RED CELL DISTRIBUTION WIDTH 15.7 % (11.5-14.5); WHITE BLOOD COUNT 7.7 X10'3 (4.5-11.0)
[2021-01-28 04:25] LABS: ALANINE AMINOTRANSFERASE 12 U/L (12-78); ALBUMIN 2.2 G/DL (3.4-5.0); ALKALINE PHOSPHATASE 152 IU/L (46-116); ANION GAP 6 (8-16); CHLORIDE 102 MMOL/L (99-107); CREATININE 0.85 MG/DL (0.40-0.90); MAGNESIUM 2.3 MG/DL (1.5-2.4); POTASSIUM 4.1 MMOL/L (3.5-5.1); SODIUM 136 MMOL/L (135-145); TOTAL CARBON DIOXIDE 28.4 MMOL/L (24-32); eGFR 68 ML/MIN
[2021-01-28 04:26] LABS: ALBUMIN/GLOBULIN RATIO 0.6 (1.1-1.5); ASPARTATE AMINO TRANSFERASE 19 U/L (10-37); BLOOD UREA NITROGEN 4 MG/DL (7-18); BUN/CREATININE RATIO 4.7 (6.6-38.0); CALCIUM 7.5 MG/DL (8.5-10.1); GLUCOSE 88 MG/DL (70-104); TOTAL PROTEIN 6.1 G/DL (6.4-8.2)
[2021-01-28] MEDS: pantoprazole 40mg Tablet.DR PO SCH (07:41)
[2021-01-28] MEDS: HYDROcodone/acetaminophen 5mg/325mg tablet PO PRN ×3 (07:45→20:08)
[2021-01-28] MEDS: CefTRIAXone 2gm/D5W 50ml BAG 50 ML IV SCH (07:48)
[2021-01-28] MEDS ORDERED: PERFLUTREN PROTEIN-A MICROSPHR (Optison) 0.22 MG/ML 3ML VIAL IV ONE (08:00)
[2021-01-28] MEDS: K and/or MAG REPLACEMENT MC SCH ×2 (08:00→20:00)
--- NOTE | 2021-01-28 10:17 | NUR ---
Pt unable to complete resting scan d/t significant claustrophobia. She attempted to get off the scan table while it was four feet elevated. Reports Ativan does not help. Said that she would most likely not be able to even complete an OP sitting Lexiscan. Hospitalist Sigifredo notified via page.
[2021-01-28] MEDS: heparin 25,000 UNIT/250ml bag 250 ML IV SCH ×2 (10:35→17:51)
[2021-01-28] MEDS ORDERED: FOLI0.4T14 PO (13:35)
[2021-01-28] MEDS ORDERED: APIX5TAB3 PO (13:35)
[2021-01-28] MEDS ORDERED: DILT30TA10 PO (13:35)
[2021-01-28] MEDS ORDERED: SODI100035 PO (13:35)
[2021-01-28] MEDS ORDERED: THIA50TA10 PO (13:35)
[2021-01-28] MEDS ORDERED: LEVO25TA2 PO (13:35)
[2021-01-28] MEDS: heparin 10,000 units/1 ML INJ IV PRN (17:53)
[2021-01-28] MEDS: diltiazem 30mg tablet PO SCH ×2 (17:53→21:00)
[2021-01-28 19:30] VITALS: BP 91/50
--- NOTE | 2021-01-28 19:30 | NUR ---
RECEIVED PT FROM ER VIA [facility]ER FOLLOWING VERBAL REPORT FROM PLANT SPRAYER ÁNGEL. ASSUMED CARE OF PT . PIV TO RIGHT AC WITH HEPARIN GTT INFILTRATED. IV DC'D WITH CANNULA INTACT.
[2021-01-28] MEDS ORDERED: warfarin 5mg tablet PO ONE (21:00)
[2021-01-28] MEDS: sodium chloride 1gm tablet PO SCH ×2 (21:00→22:19)
[2021-01-28] MEDS: oxybutynin 5mg tablet PO SCH (22:00)
[2021-01-28] MEDS: morphine 2 MG/ML inj. syringe IV PRN (22:00)
[2021-01-29 04:00] VITALS: BP 145/57
[2021-01-29] MEDS: HYDROcodone/acetaminophen 5mg/325mg tablet PO PRN ×4 (04:09→19:29)
[2021-01-29 04:13] LABS: BASOPHILS % (AUTO) 0.7 % (0-1); EOSINOPHILS # (AUTO) 0.3 X10'3 (0-0.9); EOSINOPHILS % (AUTO) 4.8 % (0-6); HEMATOCRIT 31.3 % (35.0-45.0); HEMOGLOBIN 9.8 g/dl (12.0-16.0); LYMPHOCYTES # (AUTO) 1.2 X10'3 (1.1-4.8); LYMPHOCYTES % (AUTO) 19.2 % (21-51); MEAN CORPUSCULAR HGB CONC 31.5 g/dL (33.0-36.5); MEAN CORPUSCULAR VOLUME 95.2 FL (78-98); MEAN PLATELET VOLUME 8.3 FL (7.4-10.4); MONOCYTES # (AUTO) 0.6 X10'3 (0-0.9); NEUTROPHILS # (AUTO) 4.1 X10'3 (1.8-7.7); NEUTROPHILS % (AUTO) 66.3 % (42-75); PLATELET COUNT 268 X10'3 (140-440); RED BLOOD COUNT 3.29 X10'6 (4.20-5.60); RED CELL DISTRIBUTION WIDTH 16.3 % (11.5-14.5); WHITE BLOOD COUNT 6.1 X10'3 (4.5-11.0)
[2021-01-29 04:17] LABS: ALANINE AMINOTRANSFERASE 13 U/L (12-78); ALBUMIN 2.3 G/DL (3.4-5.0); ALBUMIN/GLOBULIN RATIO 0.5 (1.1-1.5); ALKALINE PHOSPHATASE 150 IU/L (46-116); ANION GAP 4 (8-16); ASPARTATE AMINO TRANSFERASE 23 U/L (10-37); BILIRUBIN,TOTAL 0.6 MG/DL (0.1-1.0); BLOOD UREA NITROGEN 5 MG/DL (7-18); BUN/CREATININE RATIO 5.8 (6.6-38.0); CALCIUM 7.9 MG/DL (8.5-10.1); CHLORIDE 105 MMOL/L (99-107); CREATININE 0.86 MG/DL (0.40-0.90); MAGNESIUM 2.5 MG/DL (1.5-2.4); POTASSIUM 4.6 MMOL/L (3.5-5.1); SODIUM 138 MMOL/L (135-145); TOTAL CARBON DIOXIDE 28.6 MMOL/L (24-32); TOTAL PROTEIN 6.5 G/DL (6.4-8.2); eGFR 67 ML/MIN
[2021-01-29 04:21] LABS: GLUCOSE 87 MG/DL (70-104)
[2021-01-29] MEDS: heparin 10,000 units/1 ML INJ IV PRN (04:53)
[2021-01-29] MEDS: heparin 25,000 UNIT/250ml bag 250 ML IV SCH (04:56)
[2021-01-29 06:00] VITALS: BP 108/89
--- NOTE | 2021-01-29 06:33 | NUR ---
Problems reprioritized. Patient report given, questions answered & plan of care reviewed with RAFAEL.
[2021-01-29] MEDS: K and/or MAG REPLACEMENT MC SCH ×2 (08:00→20:00)
[2021-01-29] MEDS: anastrozole 1 MG tablet PO SCH (08:29)
[2021-01-29] MEDS: folic acid 0.4mg tablet PO SCH (08:29)
[2021-01-29] MEDS: thiamine 100mg tablet PO SCH (08:29)
[2021-01-29] MEDS: oxybutynin 5mg tablet PO SCH ×2 (08:30→19:30)
[2021-01-29] MEDS: diltiazem 30mg tablet PO SCH ×4 (08:30→21:00)
[2021-01-29] MEDS: levoTHYROXINE 25mcg tablet PO SCH (08:30)
[2021-01-29] MEDS: pantoprazole 40mg Tablet.DR PO SCH (08:30)
[2021-01-29] MEDS: morphine 2 MG/ML inj. syringe IV PRN ×2 (09:54→21:53)
[2021-01-29 11:00] VITALS: BP 102/63
[2021-01-29] MEDS: CefTRIAXone 2gm/D5W 50ml BAG 50 ML IV SCH (11:54)
[2021-01-29] MEDS: sodium chloride 1gm tablet PO SCH ×4 (11:54→19:29)
[2021-01-29] MEDS: enoxaparin 100mg/ml syringe SUBCUT SCH ×2 (12:00→19:31)
--- NOTE | 2021-01-29 12:48 | NUR ---
Paged. Dr. Mei PAGER ID: [phone] MESSAGE: [phone] Tonya Boggs pain meds ineffective, have tried norco and morphine. Aida DOWNS [phone]
[2021-01-29 15:00] VITALS: BP 93/60
--- NOTE | 2021-01-29 15:01 | NUR ---
Paged Dr. Mei PAGER ID: [phone] MESSAGE: [phone] Tonya Boggs; positive for MRSA in nares. Aida DOWNS [phone]
[2021-01-29 18:00] VITALS: BP 89/59
--- NOTE | 2021-01-29 18:30 | NUR ---
Patient in room PCU 3013. I have received report from RAFAEL DOWNS and had the opportunity to ask questions and assume patient care.
[2021-01-29] MEDS ORDERED: warfarin 5mg tablet PO ONE (21:00)
[2021-01-29 22:00] VITALS: BP 99/56
[2021-01-30] MEDS: HYDROcodone/acetaminophen 5mg/325mg tablet PO PRN ×5 (00:49→22:28)
[2021-01-30] MEDS: normal saline 1000ml 1,000 ML IV SCH (00:54)
[2021-01-30 02:00] VITALS: BP 109/69
[2021-01-30 06:00] VITALS: BP 112/61
--- NOTE | 2021-01-30 06:21 | NUR ---
Problems reprioritized. Patient report given, questions answered & plan of care reviewed with RAFAEL DOWNS.
--- NOTE | 2021-01-30 06:21 | NUR ---
Patient in room PCU 3013. I have received report from YARELI Dejesus and had the opportunity to ask questions and assume patient care.
[2021-01-30 06:41] LABS: BASOPHILS % (AUTO) 0.6 % (0-1); EOSINOPHILS # (AUTO) 0.2 X10'3 (0-0.9); HEMATOCRIT 29.9 % (35.0-45.0); HEMOGLOBIN 9.2 g/dl (12.0-16.0); LYMPHOCYTES # (AUTO) 1.1 X10'3 (1.1-4.8); LYMPHOCYTES % (AUTO) 23.9 % (21-51); MEAN CORPUSCULAR HEMOGLOBIN 29.7 PG (27.0-31.0); MEAN CORPUSCULAR HGB CONC 30.7 g/dL (33.0-36.5); MEAN CORPUSCULAR VOLUME 96.5 FL (78-98); MEAN PLATELET VOLUME 8.3 FL (7.4-10.4); MONOCYTES # (AUTO) 0.5 X10'3 (0-0.9); MONOCYTES % (AUTO) 11.4 % (2-12); NEUTROPHILS # (AUTO) 2.8 X10'3 (1.8-7.7); NEUTROPHILS % (AUTO) 59.1 % (42-75); PLATELET COUNT 247 X10'3 (140-440); RED CELL DISTRIBUTION WIDTH 16.9 % (11.5-14.5); WHITE BLOOD COUNT 4.8 X10'3 (4.5-11.0)
[2021-01-30] MEDS: sodium chloride 1gm tablet PO SCH ×4 (08:00→20:40)
[2021-01-30] MEDS: K and/or MAG REPLACEMENT MC SCH ×2 (08:00→20:00)
[2021-01-30 08:02] LABS: ALANINE AMINOTRANSFERASE 13 U/L (12-78); ALBUMIN 2.5 G/DL (3.4-5.0); ALBUMIN/GLOBULIN RATIO 0.6 (1.1-1.5); ALKALINE PHOSPHATASE 142 IU/L (46-116); ANION GAP 6 (8-16); ASPARTATE AMINO TRANSFERASE 25 U/L (10-37); BILIRUBIN,TOTAL 0.4 MG/DL (0.1-1.0); BLOOD UREA NITROGEN 6 MG/DL (7-18); BUN/CREATININE RATIO 9.7 (6.6-38.0); CALCIUM 8.4 MG/DL (8.5-10.1); CHLORIDE 106 MMOL/L (99-107); CREATININE 0.62 MG/DL (0.40-0.90); GLUCOSE 83 MG/DL (70-104); MAGNESIUM 2.3 MG/DL (1.5-2.4); POTASSIUM 4.6 MMOL/L (3.5-5.1); SODIUM 139 MMOL/L (135-145); TOTAL CARBON DIOXIDE 27.4 MMOL/L (24-32); TOTAL PROTEIN 6.8 G/DL (6.4-8.2); eGFR > 90 ML/MIN
[2021-01-30] MEDS: CefTRIAXone 2gm/D5W 50ml BAG 50 ML IV SCH (08:38)
[2021-01-30] MEDS: enoxaparin 100mg/ml syringe SUBCUT SCH ×2 (08:38→19:26)
[2021-01-30] MEDS: pantoprazole 40mg Tablet.DR PO SCH (08:39)
[2021-01-30] MEDS: folic acid 0.4mg tablet PO SCH (08:39)
[2021-01-30] MEDS: anastrozole 1 MG tablet PO SCH (08:39)
[2021-01-30] MEDS: thiamine 100mg tablet PO SCH (08:39)
[2021-01-30] MEDS: diltiazem 30mg tablet PO SCH ×4 (08:39→20:37)
[2021-01-30] MEDS: oxybutynin 5mg tablet PO SCH ×2 (08:39→19:27)
[2021-01-30] MEDS: levoTHYROXINE 25mcg tablet PO SCH (08:39)
[2021-01-30 11:00] VITALS: BP 128/63
[2021-01-30] MEDS: morphine 2 MG/ML inj. syringe IV PRN ×2 (14:49→19:36)
[2021-01-30 18:00] VITALS: BP 124/68
--- NOTE | 2021-01-30 18:37 | NUR ---
Problems reprioritized. Patient report given, questions answered & plan of care reviewed with YARELI Adam.
[2021-01-30] MEDS ORDERED: warfarin 7.5mg tablet PO ONE (21:00)
[2021-01-30 22:00] VITALS: BP 127/78
[2021-01-31 02:00] VITALS: BP 133/72
[2021-01-31] MEDS: morphine 2 MG/ML inj. syringe IV PRN (02:15)
[2021-01-31] MEDS: HYDROcodone/acetaminophen 5mg/325mg tablet PO PRN ×2 (04:47→09:06)
[2021-01-31 06:00] VITALS: BP 126/83
--- NOTE | 2021-01-31 06:17 | NUR ---
Problems reprioritized. Patient report given, questions answered & plan of care reviewed with YARELI Edward.
--- NOTE | 2021-01-31 06:18 | NUR ---
Patient in room PCU 3013. I have received report from Deneen DOWNS and had the opportunity to ask questions and assume patient care.
[2021-01-31] MEDS: CefTRIAXone 2gm/D5W 50ml BAG 50 ML IV SCH (07:23)
[2021-01-31] MEDS: thiamine 100mg tablet PO SCH (07:24)
[2021-01-31] MEDS: enoxaparin 100mg/ml syringe SUBCUT SCH (07:24)
[2021-01-31] MEDS: pantoprazole 40mg Tablet.DR PO SCH (07:24)
[2021-01-31] MEDS: levoTHYROXINE 25mcg tablet PO SCH (07:24)
[2021-01-31] MEDS: sodium chloride 1gm tablet PO SCH (07:24)
[2021-01-31] MEDS: diltiazem 30mg tablet PO SCH (07:24)
[2021-01-31] MEDS: oxybutynin 5mg tablet PO SCH (07:25)
[2021-01-31] MEDS: folic acid 0.4mg tablet PO SCH (07:25)
[2021-01-31 07:30] LABS: BASOPHILS % (AUTO) 0.6 % (0-1); EOSINOPHILS # (AUTO) 0.2 X10'3 (0-0.9); EOSINOPHILS % (AUTO) 3.9 % (0-6); HEMATOCRIT 31.4 % (35.0-45.0); HEMOGLOBIN 9.6 g/dl (12.0-16.0); LYMPHOCYTES % (AUTO) 19.5 % (21-51); MEAN CORPUSCULAR HEMOGLOBIN 29.7 PG (27.0-31.0); MEAN CORPUSCULAR HGB CONC 30.7 g/dL (33.0-36.5); MEAN CORPUSCULAR VOLUME 96.5 FL (78-98); MEAN PLATELET VOLUME 8.4 FL (7.4-10.4); MONOCYTES # (AUTO) 0.6 X10'3 (0-0.9); MONOCYTES % (AUTO) 11.7 % (2-12); NEUTROPHILS # (AUTO) 3.3 X10'3 (1.8-7.7); NEUTROPHILS % (AUTO) 64.3 % (42-75); PLATELET COUNT 228 X10'3 (140-440); RED BLOOD COUNT 3.25 X10'6 (4.20-5.60); RED CELL DISTRIBUTION WIDTH 16.8 % (11.5-14.5); WHITE BLOOD COUNT 5.1 X10'3 (4.5-11.0)
[2021-01-31] MEDS: anastrozole 1 MG tablet PO SCH (07:31)
[2021-01-31 07:35] LABS: ALANINE AMINOTRANSFERASE 14 U/L (12-78); ALBUMIN 2.6 G/DL (3.4-5.0); ALBUMIN/GLOBULIN RATIO 0.6 (1.1-1.5); ALKALINE PHOSPHATASE 143 IU/L (46-116); ANION GAP 9 (8-16); ASPARTATE AMINO TRANSFERASE 25 U/L (10-37); BILIRUBIN,TOTAL 0.5 MG/DL (0.1-1.0); BLOOD UREA NITROGEN 5 MG/DL (7-18); BUN/CREATININE RATIO 8.8 (6.6-38.0); CALCIUM 8.2 MG/DL (8.5-10.1); CHLORIDE 103 MMOL/L (99-107); CREATININE 0.57 MG/DL (0.40-0.90); GLUCOSE 84 MG/DL (70-104); MAGNESIUM 2.1 MG/DL (1.5-2.4); POTASSIUM 4.3 MMOL/L (3.5-5.1); SODIUM 137 MMOL/L (135-145); TOTAL CARBON DIOXIDE 25.4 MMOL/L (24-32); TOTAL PROTEIN 7.2 G/DL (6.4-8.2); eGFR > 90 ML/MIN
[2021-01-31] MEDS: K and/or MAG REPLACEMENT MC SCH (08:00)
[2021-01-31] MEDS ORDERED: LEVO500T89 PO (10:06)
--- NOTE | 2021-01-31 10:13 | NUR ---
Initial: Pt admit DX acute PE, R PNA, HTN, chronic etoh abuse, and hyponatremia currently stable per MD note. Pt PO 75-100% avg heart healthy diet meeting estimated needs. Receiving routine thiamin and folic for etoh w/ serum Na 137 up from 131 on admit. [facility]BM 01/30. No nutrition concerns at this time. Will continue to monitor. Rec: 1. continue heart healthy diet 2. thiamin, folic for etoh hx 3. routine bowel care 4. weekly wts Addendum: 01/31/21 at [address] Amended: Links added.
[2021-01-31] MEDS ORDERED: WARF6TAB49 PO (10:32)
--- NOTE | 2021-01-31 11:29 | NUR ---
Patient stable and comfortable at time of discharge. removed telemetry and PIV with cannula intact. No redness or irritation at PIV site. All valuables gathered and given to patient. Gave and discussed all discharge information and discharge education with patient.Patient was able to ask questions and receive answers. Patient was able to verbalize back all discharge information and discharge education . 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 Medications are ready. Patient was wheeled to lobby in wheelchair by staff. Patient left hospital via private vehicle with friend.
== END 2021-01-31 11:40 | disposition home or self-care (01) | DRG 139 ==
LOC: ER 06:37 → ED HOLD 20:15 → PCU 3S 01-28 19:39
PROVIDERS: ADMIT Internal Medicine; ATTEND Family Medicine
PROC: B32T1ZZ Computerized Tomography (CT Scan) of Left Pulmonary Artery using Low Osmolar Contrast (ICD-10-PCS; principal; 2021-01-27)
PROC: B3201ZZ Computerized Tomography (CT Scan) of Thoracic Aorta using Low Osmolar Contrast (ICD-10-PCS; 2021-01-27)
PROC: B32S1ZZ Computerized Tomography (CT Scan) of Right Pulmonary Artery using Low Osmolar Contrast (ICD-10-PCS; 2021-01-27)
DX: J18.9 Pneumonia, unspecified organism (principal); I26.99 Other pulmonary embolism without acute cor pulmonale; E87.1 Hypo-osmolality and hyponatremia; I48.20 Chronic atrial fibrillation, unspecified; F41.9 Anxiety disorder, unspecified; G89.29 Other chronic pain; I10 Essential (primary) hypertension; Z20.822 Contact with and (suspected) exposure to COVID-19; F10.10 Alcohol abuse, uncomplicated; Y90.9 Presence of alcohol in blood, level not specified; Z87.440 Personal history of urinary (tract) infections; Z79.01 Long term (current) use of anticoagulants; Z85.3 Personal history of malignant neoplasm of breast; Z79.899 Other long term (current) drug therapy; Z90.49 Acquired absence of other specified parts of digestive tract; Z98.891 History of uterine scar from previous surgery; Z98.84 Bariatric surgery status; Z80.0 Family history of malignant neoplasm of digestive organs; Z87.891 Personal history of nicotine dependence
CPT/HCPCS: 36415; 71045; 71275; 80053; 83605; 83735; 83880; 84484; 85025; 85379; 85610; 85730; 87040; 87081; 87635; 93005; 93306; 93970; 97116; 97161; 97530; 99285; A9500; C9803; G0378; J0696; J1644; J1650; J2270; J7030; Q9967

== ENCOUNTER 2021-02-04 18:42 | Inpatient (IN) | payer MEDICAID ==
[~2021-02-04] VITALS: Ht 167.6 cm; Wt 117.9 kg
[2021-02-04] MEDS: azithromycin/NS 500mg/250ml 250 ML IV SCH (03:30)
[~2021-02-04 18:42] MED LIST changes: -APIX5TAB3 PO; +DILT30TA10 PO; -DILT30TA2 PO; -DOCU100C40 PO; +FOLI0.4T14 PO; -LACT1CAP26 PO; +LEVO25TA2 PO; -LEVO25TA7 PO; +LEVO500T89 PO; -METO-384 PO; -MULT-25 PO; +SODI100035 PO; -SODI1TAB2 PO; +WARF6TAB49 PO; -ZINC OXIDE TP
[2021-02-04 19:41] LABS: ABG BASE EXCESS 2.8 mmol/L (-2.0-2.0); ABG HCO3 27.1 mmol/L (22.0-26.0); ABG OXYGEN SATURATION 97.3 % (94-97); ABG PO2 (T) 91.3 mmHg (75.0-100.0); ALLEN'S TEST POSITIVE; FCOHb 0.7 % (0.0-3.9); FLOW 2 L/min; FMetHb 0.1 % (0.0-1.5); FO2Hb 96.5 % (94-97); PATIENT TEMPERATURE 36.6; TOTAL HEMOGLOBIN 10.6 G/dl (12.0-16.0)
[2021-02-04 19:47] LABS: MEAN PLATELET VOLUME 8.3 FL (7.4-10.4); WHITE BLOOD COUNT 10.8 X10'3 (4.5-11.0)
[2021-02-04 19:48] LABS: BASOPHILS % (AUTO) 0.2 % (0-1); EOSINOPHILS % (AUTO) 0 % (0-6); HEMATOCRIT 33.4 % (35.0-45.0); HEMOGLOBIN 10.9 g/dl (12.0-16.0); LYMPHOCYTES # (AUTO) 0.4 X10'3 (1.1-4.8); LYMPHOCYTES % (AUTO) 4.1 % (21-51); MEAN CORPUSCULAR HEMOGLOBIN 29.3 PG (27.0-31.0); MEAN CORPUSCULAR HGB CONC 32.5 g/dL (33.0-36.5); MEAN CORPUSCULAR VOLUME 90.1 FL (78-98); MONOCYTES # (AUTO) 0.8 X10'3 (0-0.9); MONOCYTES % (AUTO) 7.1 % (2-12); NEUTROPHILS # (AUTO) 9.5 X10'3 (1.8-7.7); NEUTROPHILS % (AUTO) 88.6 % (42-75); PLATELET COUNT 344 X10'3 (140-440); RED CELL DISTRIBUTION WIDTH 16.2 % (11.5-14.5)
[2021-02-04 19:54] LABS: ALANINE AMINOTRANSFERASE 26 U/L (12-78); ALBUMIN 2.4 G/DL (3.4-5.0); ALBUMIN/GLOBULIN RATIO 0.6 (1.1-1.5); ALKALINE PHOSPHATASE 149 IU/L (46-116); ANION GAP 8 (8-16); ASPARTATE AMINO TRANSFERASE 52 U/L (10-37); BILIRUBIN,TOTAL 1.2 MG/DL (0.1-1.0); BLOOD UREA NITROGEN 5 MG/DL (7-18); BUN/CREATININE RATIO 8.1 (6.6-38.0); CALCIUM 8.3 MG/DL (8.5-10.1); CHLORIDE 87 MMOL/L (99-107); CREATININE 0.62 MG/DL (0.40-0.90); GLUCOSE 99 MG/DL (70-104); POTASSIUM 4.5 MMOL/L (3.5-5.1); SODIUM 122 MMOL/L (135-145); TOTAL CARBON DIOXIDE 27.3 MMOL/L (24-32); TOTAL PROTEIN 6.6 G/DL (6.4-8.2); eGFR > 90 ML/MIN
[2021-02-04 19:57] LABS: MAGNESIUM 1.9 MG/DL (1.5-2.4); TROPONIN I < 0.04 NG/ML (0.0-0.05)
[2021-02-04 20:00] LABS: PARTIAL THROMBOPLASTIN TIME 72 SECONDS (22-32)
[2021-02-04] MEDS ORDERED: temazepam 15mg capsule PO PRN (21:00)
[2021-02-04] MEDS: CefTRIAXone/D5W-Rocephin 1gm 50 ML IV SCH (21:55)
[2021-02-04] MEDS ORDERED: phytonadione inj. 2 MG in normal saline 100ml IV soln 100 ML IV ONE (21:55)
[2021-02-04] MEDS ORDERED: ipratropium/albuterol 3ml nebule NEB PRN (21:55)
[2021-02-04] MEDS ORDERED: acetaminophen 650mg rectal suppository RC PRN (21:55)
[2021-02-04] MEDS ORDERED: ondansetron/PF 4mg/2ml inj IV PRN (21:55)
[2021-02-04] MEDS ORDERED: HYDROcodone/acetaminophen 5mg/325mg tablet PO PRN (21:55)
[2021-02-04] MEDS ORDERED: acetaminophen 325mg tablet PO PRN ×2 (21:55)
[2021-02-04] MEDS: normal saline 1000ml 1,000 ML IV SCH (21:55)
[2021-02-04] MEDS ORDERED: mag hydrox/Alum hydrox/simeth 30ml oral suspension PO PRN (21:55)
[2021-02-04] MEDS ORDERED: magnesium hydroxide 30ml (MOM) UD suspension PO PRN (21:55)
[2021-02-04] MEDS: HYDROcodone/acetaminophen 10/325mg tab PO PRN (22:39)
[2021-02-04 23:11] LABS: CLARITY,URINE CLEAR (Clear); COLOR,URINE YELLOW (Yellow); GLUCOSE, URINE NEGATIVE (Neg); KETONES,URINE NEGATIVE (Neg); NITRITES, URINE NEGATIVE (Neg); OCCULT BLOOD,URINE NEGATIVE (Neg); PROTEIN,URINE NEGATIVE (Neg); UA COLLECTION TYPE CLN CATCH MIDSTREAM
[2021-02-04 23:12] LABS: LEUKOCYTE ESTERASE ,URINE NEGATIVE (Neg); UROBILINOGEN,URINE 0.2 E.U/dL (0.2-1.0)
[2021-02-05] MEDS: ipratropium/albuterol 3ml nebule NEB SCH ×6 (00:27→22:48)
--- NOTE | 2021-02-05 00:30 | NUR ---
IV INFILTRATED, NO ACCESS.
[2021-02-05] MEDS ORDERED: normal saline 1000ML IV soln IVB ONE (01:15)
--- NOTE | 2021-02-05 03:04 | NUR ---
THIS RN ATTEMPTING AN IV X 1.5 HOURS WITH MD ASSISTANCE AND CHARGE CALLED TO BEDSIDE TO ASSIST.
--- NOTE | 2021-02-05 03:12 | NUR ---
SET UP FOR CL PT HAS NO VASCULAR ACCESS AND NOTHING VISIBLE EVEN WITH US THAT IS DECENT.
[2021-02-05 03:43] LABS: BASOPHILS % (AUTO) 0.2 % (0-1); EOSINOPHILS % (AUTO) 0.1 % (0-6); HEMATOCRIT 27.9 % (35.0-45.0); HEMOGLOBIN 9.1 g/dl (12.0-16.0); LYMPHOCYTES # (AUTO) 0.8 X10'3 (1.1-4.8); LYMPHOCYTES % (AUTO) 8.5 % (21-51); MEAN CORPUSCULAR HEMOGLOBIN 29.2 PG (27.0-31.0); MEAN CORPUSCULAR HGB CONC 32.7 g/dL (33.0-36.5); MEAN CORPUSCULAR VOLUME 89.3 FL (78-98); MEAN PLATELET VOLUME 7.9 FL (7.4-10.4); MONOCYTES # (AUTO) 0.7 X10'3 (0-0.9); MONOCYTES % (AUTO) 8.2 % (2-12); NEUTROPHILS # (AUTO) 7.5 X10'3 (1.8-7.7); PLATELET COUNT 295 X10'3 (140-440); RED BLOOD COUNT 3.12 X10'6 (4.20-5.60); RED CELL DISTRIBUTION WIDTH 15.9 % (11.5-14.5)
--- NOTE | 2021-02-05 03:52 | NUR ---
IJ PLACED, XRAY ORDERED.
[2021-02-05 03:59] LABS: ANION GAP 6 (8-16); BLOOD UREA NITROGEN 4 MG/DL (7-18); BUN/CREATININE RATIO 7.3 (6.6-38.0); CALCIUM 7.8 MG/DL (8.5-10.1); CHLORIDE 89 MMOL/L (99-107); CREATININE 0.55 MG/DL (0.40-0.90); GLUCOSE 91 MG/DL (70-104); PHOSPHORUS 2.5 MG/DL (2.3-4.5); POTASSIUM 4.5 MMOL/L (3.5-5.1); SODIUM 123 MMOL/L (135-145); TOTAL CARBON DIOXIDE 28.3 MMOL/L (24-32); eGFR > 90 ML/MIN
[2021-02-05 04:13] LABS: PARTIAL THROMBOPLASTIN TIME 79 SECONDS (22-32)
[2021-02-05] MEDS: HYDROcodone/acetaminophen 10/325mg tab PO PRN ×5 (05:28→22:57)
--- NOTE | 2021-02-05 05:30 | NUR ---
PT ROLLED ONTO NEW LIZY, NOTED OOZING AND BLEEDING TO HER EXCORIATED BACKSIDE, WOUND CAMERA UNAVAILABLE.
--- NOTE | 2021-02-05 05:31 | NUR ---
PT'S BACKSIDE, EXCORIATED, BLEEDING, WHEEPING, NOTED WHITE POSSIBLE TUNNELING TO L. GLUTEAL FOLD. REDNESS EXTENDS MIDWAY DOWN PT'S THIGHS, FORWARD TO ANTERIOR THIGHS WITH CONTINUED EXCORIATION. F/C REMAINS IN PLACE DRAINING CLEAR YELLOW URINE. PT HAS ADDITIONAL BLISTERING AND REDNESS TO HER L. LATER FOOT. PER REPORT FROM [facility] DURING HANDOFF PT WAS ADMITTED X 1 WEEK AT THIS FACILITY THEN D/C HOME WHERE SHE DOES NOT HAVE ANYONE TO ASSIST WITH HER CARE, SHE WAS BROUGHT HOME PUT INTO BED AND REMAIND IN BED X 1 WEEK UNTIL SOMEONE CAME TO CHECK ON HER. PT WAS SATURATED IN URINE AND FECES WITH SIGNIFICANT BREAK DOWN NOTED ABOVE.
[2021-02-05] MEDS: docusate sod 100mg capsule PO SCH ×2 (08:00→20:57)
[2021-02-05] MEDS ORDERED: iohexol 300mg/ml 100ml inj. ONE (08:09)
[2021-02-05] MEDS: thiamine 100mg tablet PO SCH (08:50)
[2021-02-05] MEDS: oxybutynin 5mg tablet PO SCH ×2 (08:51→20:57)
[2021-02-05] MEDS: diltiazem 30mg tablet PO SCH ×4 (08:51→20:58)
[2021-02-05] MEDS: levoTHYROXINE 25mcg tablet PO SCH (08:51)
[2021-02-05] MEDS: folic acid 0.4mg tablet PO SCH (08:51)
[2021-02-05] MEDS: NYSTATIN CREAM - 30GM TUBE TP SCH ×2 (08:52→20:58)
[2021-02-05] MEDS: anastrozole 1 MG tablet PO SCH (09:42)
[2021-02-05] MEDS: sodium chloride 1gm tablet PO SCH ×4 (09:42→20:57)
[2021-02-05] MEDS: normal saline 1000ml 1,000 ML IV SCH (12:13)
--- NOTE | 2021-02-05 13:28 | NUR ---
Patient in room ED 6. I have received report from Waylon DOWNS and had the opportunity to ask questions and assume patient care.
[2021-02-05 14:38] VITALS: BP 95/54
[2021-02-05 15:00] VITALS: BP 95/54
[2021-02-05] MEDS: LORazepam 0.5 MG tablet PO PRN (17:18)
[2021-02-05 18:00] VITALS: BP 98/56
--- NOTE | 2021-02-05 18:26 | NUR ---
Problems reprioritized. Patient report given, questions answered & plan of care reviewed with Irene RN.
--- NOTE | 2021-02-05 18:32 | NUR ---
[place] Medication Administration: For this medication-pass time frame, all medication were reviewed, dispensed, administered and documented per hospital policy by Maddie DOWNS.
[2021-02-05] MEDS: lactobacillus rhamnosus 10,000 MMU CELLS/CAPSULE PO SCH (20:57)
[2021-02-05] MEDS: azithromycin/NS 500mg/250ml 250 ML IV SCH (21:52)
[2021-02-05 22:00] VITALS: BP 101/54
[2021-02-05] MEDS: CefTRIAXone/D5W-Rocephin 1gm 50 ML IV SCH (23:21)
[2021-02-06] VITALS (7 sets, daily range): BP systolic 89–109; BP diastolic 50–61
[2021-02-06] MEDS: HYDROcodone/acetaminophen 10/325mg tab PO PRN ×5 (03:16→21:00)
[2021-02-06] MEDS: normal saline 1000ml 1,000 ML IV SCH ×2 (03:19→19:01)
[2021-02-06] MEDS: folic acid 0.4mg tablet PO SCH (08:00)
[2021-02-06] MEDS: docusate sod 100mg capsule PO SCH ×2 (08:00→20:00)
[2021-02-06] MEDS: NYSTATIN CREAM - 30GM TUBE TP SCH ×2 (08:00→21:17)
[2021-02-06] MEDS: lactobacillus rhamnosus 10,000 MMU CELLS/CAPSULE PO SCH ×2 (08:00→21:15)
[2021-02-06] MEDS: diltiazem 30mg tablet PO SCH ×4 (08:00→21:29)
[2021-02-06] MEDS: thiamine 100mg tablet PO SCH (08:00)
[2021-02-06] MEDS: ipratropium/albuterol 3ml nebule NEB SCH ×5 (08:00→23:00)
--- NOTE | 2021-02-06 11:36 | NUR ---
pt refused morning svn
[2021-02-06] MEDS: sodium chloride 1gm tablet PO SCH ×4 (12:48→22:37)
[2021-02-06] MEDS: LORazepam 0.5 MG tablet PO PRN ×2 (12:48→22:43)
[2021-02-06] MEDS: levoTHYROXINE 25mcg tablet PO SCH (12:49)
[2021-02-06] MEDS: oxybutynin 5mg tablet PO SCH ×2 (12:50→21:16)
--- NOTE | 2021-02-06 13:00 | NUR ---
1100 svn missed. pt is with physical therapy
[2021-02-06 15:05] LABS: BASOPHILS % (AUTO) 0.3 % (0-1); EOSINOPHILS # (AUTO) 0.1 X10'3 (0-0.9); EOSINOPHILS % (AUTO) 1.4 % (0-6); HEMATOCRIT 26.2 % (35.0-45.0); HEMOGLOBIN 8.9 g/dl (12.0-16.0); LYMPHOCYTES # (AUTO) 0.9 X10'3 (1.1-4.8); LYMPHOCYTES % (AUTO) 14.3 % (21-51); MEAN CORPUSCULAR HEMOGLOBIN 30.1 PG (27.0-31.0); MEAN CORPUSCULAR HGB CONC 33.9 g/dL (33.0-36.5); MONOCYTES # (AUTO) 0.8 X10'3 (0-0.9); NEUTROPHILS # (AUTO) 4.8 X10'3 (1.8-7.7); PLATELET COUNT 316 X10'3 (140-440); RED BLOOD COUNT 2.95 X10'6 (4.20-5.60); RED CELL DISTRIBUTION WIDTH 16.9 % (11.5-14.5); WHITE BLOOD COUNT 6.6 X10'3 (4.5-11.0)
[2021-02-06 15:16] LABS: PARTIAL THROMBOPLASTIN TIME 51 SECONDS (22-32)
[2021-02-06 15:20] LABS: ANION GAP 4 (8-16); BLOOD UREA NITROGEN 5 MG/DL (7-18); BUN/CREATININE RATIO 7.5 (6.6-38.0); CALCIUM 7.7 MG/DL (8.5-10.1); CHLORIDE 95 MMOL/L (99-107); CREATININE 0.67 MG/DL (0.40-0.90); PHOSPHORUS 3.2 MG/DL (2.3-4.5); POTASSIUM 4.3 MMOL/L (3.5-5.1); SODIUM 128 MMOL/L (135-145); TOTAL CARBON DIOXIDE 29.2 MMOL/L (24-32); eGFR 89 ML/MIN
[2021-02-06 15:27] LABS: GLUCOSE 88 MG/DL (70-104)
--- NOTE | 2021-02-06 15:51 | NUR ---
1500 pt refused svn
[2021-02-06] MEDS: anastrozole 1 MG tablet PO SCH (16:22)
--- NOTE | 2021-02-06 19:30 | NUR ---
pt states edema to lower legs has decreased since admission; refuses to have them elevated on pillows Addendum: 02/07/21 at 0413 by Rosa Maria Nance RN Amended: Links added.
[2021-02-06] MEDS ORDERED: warfarin 2.5mg tablet PO ONE (21:00)
[2021-02-06] MEDS: azithromycin/NS 500mg/250ml 250 ML IV SCH (21:17)
[2021-02-06] MEDS: CefTRIAXone/D5W-Rocephin 1gm 50 ML IV SCH (22:37)
[2021-02-07] MEDS: HYDROcodone/acetaminophen 10/325mg tab PO PRN ×4 (01:05→16:05)
[2021-02-07 02:00] VITALS: BP 112/57
[2021-02-07] MEDS: ipratropium/albuterol 3ml nebule NEB SCH ×6 (03:00→23:00)
[2021-02-07] MEDS: LORazepam 0.5 MG tablet PO PRN (05:42)
[2021-02-07 07:09] LABS: BASOPHILS % (AUTO) 0.5 % (0-1); EOSINOPHILS # (AUTO) 0.1 X10'3 (0-0.9); EOSINOPHILS % (AUTO) 2.6 % (0-6); HEMOGLOBIN 8.6 g/dl (12.0-16.0); LYMPHOCYTES # (AUTO) 0.8 X10'3 (1.1-4.8); LYMPHOCYTES % (AUTO) 14.1 % (21-51); MEAN CORPUSCULAR HEMOGLOBIN 29.6 PG (27.0-31.0); MEAN CORPUSCULAR HGB CONC 32.1 g/dL (33.0-36.5); MEAN CORPUSCULAR VOLUME 92.2 FL (78-98); MEAN PLATELET VOLUME 7.8 FL (7.4-10.4); MONOCYTES # (AUTO) 0.6 X10'3 (0-0.9); MONOCYTES % (AUTO) 10.5 % (2-12); NEUTROPHILS # (AUTO) 4.1 X10'3 (1.8-7.7); NEUTROPHILS % (AUTO) 72.3 % (42-75); PLATELET COUNT 318 X10'3 (140-440); RED BLOOD COUNT 2.92 X10'6 (4.20-5.60); WHITE BLOOD COUNT 5.7 X10'3 (4.5-11.0)
[2021-02-07 07:12] VITALS: BP 92/57
--- NOTE | 2021-02-07 07:21 | NUR ---
Patient in room PCU 3023. I have received report from Magy RN and had the opportunity to ask questions and assume patient care.
[2021-02-07 07:22] LABS: PARTIAL THROMBOPLASTIN TIME 48 SECONDS (22-32)
[2021-02-07 07:43] LABS: ALBUMIN 2.1 G/DL (3.4-5.0); ANION GAP 2 (8-16); BLOOD UREA NITROGEN 8 MG/DL (7-18); BUN/CREATININE RATIO 11.6 (6.6-38.0); CALCIUM 7.7 MG/DL (8.5-10.1); CHLORIDE 94 MMOL/L (99-107); CREATININE 0.69 MG/DL (0.40-0.90); PHOSPHORUS 3.2 MG/DL (2.3-4.5); POTASSIUM 4.1 MMOL/L (3.5-5.1); SODIUM 124 MMOL/L (135-145); TOTAL CARBON DIOXIDE 28.4 MMOL/L (24-32); eGFR 86 ML/MIN
[2021-02-07 07:44] LABS: GLUCOSE 93 MG/DL (70-104)
--- NOTE | 2021-02-07 07:52 | NUR ---
pt continues to refuse svn but is not short of breath or wheezing
[2021-02-07] MEDS: diltiazem 30mg tablet PO SCH ×4 (08:00→21:00)
[2021-02-07] MEDS: sodium chloride 1gm tablet PO SCH ×4 (08:13→22:30)
[2021-02-07] MEDS: levoTHYROXINE 25mcg tablet PO SCH (08:13)
[2021-02-07] MEDS: docusate sod 100mg capsule PO SCH ×2 (08:13→19:21)
[2021-02-07] MEDS: folic acid 0.4mg tablet PO SCH (08:14)
[2021-02-07] MEDS: lactobacillus rhamnosus 10,000 MMU CELLS/CAPSULE PO SCH ×2 (08:15→19:21)
[2021-02-07] MEDS: oxybutynin 5mg tablet PO SCH ×2 (08:15→19:21)
[2021-02-07] MEDS: thiamine 100mg tablet PO SCH (08:15)
--- NOTE | 2021-02-07 08:23 | NUR ---
patient blood pressure decreased so Diltiazem was held per perameters.
[2021-02-07] MEDS: NYSTATIN CREAM - 30GM TUBE TP SCH ×2 (08:26→19:27)
[2021-02-07] MEDS: anastrozole 1 MG tablet PO SCH (10:07)
--- NOTE | 2021-02-07 11:10 | NUR ---
pt. refused 1100 svn. states she is breathing fine. o2 devivery via NC 3 L/M with spo2 99%
[2021-02-07] MEDS: normal saline 1000ml 1,000 ML IV SCH ×3 (11:50→22:37)
[2021-02-07 13:19] VITALS: BP 119/74
--- NOTE | 2021-02-07 13:34 | NUR ---
[place] consult: Pt admitted w/ weakness and dx of encephalopathy per EMR; pt was sat on couch for 3 days and found on the floor by family per MD note. Pt noted w/ multiple areas of concern: IAD on thigh, DTI L heel and DTI L food. Photos reviewed in chart. IAD partial thickness per WOC note and covers large surface area. Pt able to eat moderately well, mostly 50% of meals on Heart Healthy diet. Pt may benefit from Adolfo smoothie to assist w/ wound healing and skin integrity. [facility] 02/05. Will continue to monitor. Recs: 1. Continue Heart healthy diet as tolerated 2. Adolfo smoothie BID BD 3. Bowel care per rx 4. Weekly wt Addendum: 02/07/21 at [address] Amended: Links added.
[2021-02-07 17:30] VITALS: BP 98/59
[2021-02-07] MEDS: JUVEN Smoothie Arginine/Glut./Ca2+Bmb (Juven 19.3pkt) 240ml cup PO SCH (17:30)
[2021-02-07 18:00] VITALS: BP 90/46
--- NOTE | 2021-02-07 18:49 | NUR ---
Problems reprioritized. Patient report given, questions answered & plan of care reviewed with Kaelyn DOWNS.
--- NOTE | 2021-02-07 18:52 | NUR ---
Patient in room U 3023. I have received report from YARELI Edward and had the opportunity to ask questions and assume patient care. Addendum: 02/07/21 at 1854 by Kaelyn Bright RN Patient report was received from YARELI Soria not Cheyanne for this patient.
[2021-02-07] MEDS: oxyCODONE/APAP 10/325mg tablet PO PRN (19:26)
[2021-02-07] MEDS ORDERED: warfarin 3mg tablet PO ONE (21:00)
[2021-02-07 22:05] VITALS: BP 99/63
[2021-02-07] MEDS: azithromycin 250mg tablet PO SCH (22:29)
[2021-02-07] MEDS: CefTRIAXone/D5W-Rocephin 1gm 50 ML IV SCH (22:33)
--- NOTE | 2021-02-07 23:29 | NUR ---
Pt INR 1.4 gave scheduled dose of Warfarin.
[2021-02-08 03:00] VITALS: BP_SYST 116; BP_DIAS 66; BP_DIAS 99
[2021-02-08] MEDS: ipratropium/albuterol 3ml nebule NEB SCH ×4 (03:00→15:00)
[2021-02-08] MEDS: oxyCODONE/APAP 10/325mg tablet PO PRN ×5 (04:00→21:42)
[2021-02-08 04:28] LABS: BASOPHILS % (AUTO) 0.6 % (0-1); EOSINOPHILS # (AUTO) 0.1 X10'3 (0-0.9); EOSINOPHILS % (AUTO) 2.6 % (0-6); HEMATOCRIT 27.9 % (35.0-45.0); HEMOGLOBIN 9.2 g/dl (12.0-16.0); LYMPHOCYTES # (AUTO) 0.8 X10'3 (1.1-4.8); LYMPHOCYTES % (AUTO) 16.7 % (21-51); MEAN CORPUSCULAR HEMOGLOBIN 29.8 PG (27.0-31.0); MEAN CORPUSCULAR HGB CONC 32.8 g/dL (33.0-36.5); MEAN CORPUSCULAR VOLUME 90.8 FL (78-98); MEAN PLATELET VOLUME 7.4 FL (7.4-10.4); MONOCYTES # (AUTO) 0.5 X10'3 (0-0.9); MONOCYTES % (AUTO) 10.2 % (2-12); NEUTROPHILS # (AUTO) 3.3 X10'3 (1.8-7.7); NEUTROPHILS % (AUTO) 69.9 % (42-75); PLATELET COUNT 262 X10'3 (140-440); RED BLOOD COUNT 3.08 X10'6 (4.20-5.60); RED CELL DISTRIBUTION WIDTH 17.3 % (11.5-14.5); WHITE BLOOD COUNT 4.7 X10'3 (4.5-11.0)
[2021-02-08 04:44] LABS: ALBUMIN 2.2 G/DL (3.4-5.0); ANION GAP 3 (8-16); BLOOD UREA NITROGEN 7 MG/DL (7-18); BUN/CREATININE RATIO 8.2 (6.6-38.0); CALCIUM 7.8 MG/DL (8.5-10.1); CHLORIDE 102 MMOL/L (99-107); CREATININE 0.85 MG/DL (0.40-0.90); PHOSPHORUS 3.3 MG/DL (2.3-4.5); POTASSIUM 4.3 MMOL/L (3.5-5.1); SODIUM 135 MMOL/L (135-145); TOTAL CARBON DIOXIDE 29.6 MMOL/L (24-32); eGFR 68 ML/MIN
[2021-02-08 04:45] LABS: % IRON SATURATION 12 % (11-46); IRON 23 UG/DL (49-151); TOTAL IRON BINDING CAPACITY 191 UG/DL (259-388)
[2021-02-08 04:46] LABS: GLUCOSE 85 MG/DL (70-104)
[2021-02-08] MEDS: normal saline 1000ml 1,000 ML IV SCH ×3 (05:49→21:52)
[2021-02-08 06:00] VITALS: BP 143/79
--- NOTE | 2021-02-08 06:00 | NUR ---
Patient in room PCU 3023. I have received report from Kaelyn DOWNS and had the opportunity to ask questions and assume patient care.
--- NOTE | 2021-02-08 06:10 | NUR ---
Problems reprioritized. Patient report given, questions answered & plan of care reviewed with YARELI Lewis.
[2021-02-08] MEDS: JUVEN Smoothie Arginine/Glut./Ca2+Bmb (Juven 19.3pkt) 240ml cup PO SCH ×2 (07:30→17:30)
[2021-02-08] MEDS: lactobacillus rhamnosus 10,000 MMU CELLS/CAPSULE PO SCH (08:28)
[2021-02-08] MEDS: docusate sod 100mg capsule PO SCH ×2 (08:29→19:44)
[2021-02-08] MEDS: thiamine 100mg tablet PO SCH (08:29)
[2021-02-08] MEDS: diltiazem 30mg tablet PO SCH ×4 (08:29→20:10)
[2021-02-08] MEDS: folic acid 0.4mg tablet PO SCH (08:30)
[2021-02-08] MEDS: oxybutynin 5mg tablet PO SCH ×2 (08:30→19:45)
[2021-02-08] MEDS: levoTHYROXINE 25mcg tablet PO SCH (08:30)
[2021-02-08] MEDS: sodium chloride 1gm tablet PO SCH ×4 (08:30→20:10)
[2021-02-08] MEDS: anastrozole 1 MG tablet PO SCH (08:30)
[2021-02-08] MEDS: NYSTATIN CREAM - 30GM TUBE TP SCH ×2 (08:33→19:45)
[2021-02-08 12:00] VITALS: BP 121/64
[2021-02-08] MEDS: LORazepam 0.5 MG tablet PO PRN ×2 (14:01→20:10)
[2021-02-08] MEDS: enoxaparin 40mg/0.4ml syringe SQ SCH (14:37)
[2021-02-08 15:00] VITALS: BP 113/66
[2021-02-08 18:00] VITALS: BP 132/76
--- NOTE | 2021-02-08 18:35 | NUR ---
Patient in room PCU 3023. I have received report from YARELI Lewis and had the opportunity to ask questions and assume patient care.
--- NOTE | 2021-02-08 18:36 | NUR ---
Problems reprioritized. Patient report given, questions answered & plan of care reviewed with Kaelyn DOWNS.
[2021-02-08] MEDS: azithromycin 250mg tablet PO SCH (20:10)
[2021-02-08] MEDS ORDERED: warfarin 4mg tablet PO ONE (21:00)
[2021-02-08] MEDS: CefTRIAXone/D5W-Rocephin 1gm 50 ML IV SCH (21:52)
[2021-02-08 22:00] VITALS: BP 117/76
[2021-02-09] VITALS (7 sets, daily range): BP systolic 102–142; BP diastolic 60–85
[2021-02-09] MEDS: oxyCODONE/APAP 10/325mg tablet PO PRN ×5 (01:21→20:26)
[2021-02-09] MEDS: LORazepam 0.5 MG tablet PO PRN ×2 (04:20→18:52)
[2021-02-09] MEDS: normal saline 1000ml 1,000 ML IV SCH (04:42)
[2021-02-09 04:44] LABS: BASOPHILS % (AUTO) 0.8 % (0-1); EOSINOPHILS # (AUTO) 0.2 X10'3 (0-0.9); EOSINOPHILS % (AUTO) 3.2 % (0-6); HEMATOCRIT 29.4 % (35.0-45.0); HEMOGLOBIN 9.4 g/dl (12.0-16.0); LYMPHOCYTES # (AUTO) 0.8 X10'3 (1.1-4.8); LYMPHOCYTES % (AUTO) 15.8 % (21-51); MEAN CORPUSCULAR HEMOGLOBIN 29.6 PG (27.0-31.0); MEAN CORPUSCULAR HGB CONC 31.9 g/dL (33.0-36.5); MEAN CORPUSCULAR VOLUME 92.8 FL (78-98); MEAN PLATELET VOLUME 7.6 FL (7.4-10.4); MONOCYTES # (AUTO) 0.6 X10'3 (0-0.9); NEUTROPHILS # (AUTO) 3.3 X10'3 (1.8-7.7); NEUTROPHILS % (AUTO) 68.2 % (42-75); PLATELET COUNT 239 X10'3 (140-440); RED BLOOD COUNT 3.17 X10'6 (4.20-5.60); RED CELL DISTRIBUTION WIDTH 17.6 % (11.5-14.5); WHITE BLOOD COUNT 4.8 X10'3 (4.5-11.0)
[2021-02-09 04:59] LABS: ALBUMIN 2.1 G/DL (3.4-5.0); ANION GAP 3 (8-16); BLOOD UREA NITROGEN 5 MG/DL (7-18); BUN/CREATININE RATIO 7.8 (6.6-38.0); CALCIUM 7.9 MG/DL (8.5-10.1); CHLORIDE 105 MMOL/L (99-107); CREATININE 0.64 MG/DL (0.40-0.90); PHOSPHORUS 3.1 MG/DL (2.3-4.5); POTASSIUM 4.3 MMOL/L (3.5-5.1); SODIUM 137 MMOL/L (135-145); TOTAL CARBON DIOXIDE 29.5 MMOL/L (24-32); eGFR > 90 ML/MIN
[2021-02-09 05:01] LABS: GLUCOSE 86 MG/DL (70-104)
--- NOTE | 2021-02-09 06:00 | NUR ---
Patient in room PCU 3023. I have received report from xochilt DOWNS and had the opportunity to ask questions and assume patient care.
--- NOTE | 2021-02-09 06:20 | NUR ---
Problems reprioritized. Patient report given, questions answered & plan of care reviewed with YARELI Lewis.
[2021-02-09] MEDS: ipratropium/albuterol 3ml nebule NEB SCH ×2 (07:00→11:00)
[2021-02-09] MEDS: JUVEN Smoothie Arginine/Glut./Ca2+Bmb (Juven 19.3pkt) 240ml cup PO SCH ×2 (07:30→17:30)
[2021-02-09] MEDS: diltiazem 30mg tablet PO SCH ×4 (07:52→20:32)
[2021-02-09] MEDS: oxybutynin 5mg tablet PO SCH ×2 (07:54→20:32)
[2021-02-09] MEDS: docusate sod 100mg capsule PO SCH ×2 (07:54→20:32)
[2021-02-09] MEDS: folic acid 0.4mg tablet PO SCH (07:54)
[2021-02-09] MEDS: sodium chloride 1gm tablet PO SCH ×4 (07:54→20:34)
[2021-02-09] MEDS: thiamine 100mg tablet PO SCH (07:54)
[2021-02-09] MEDS: levoTHYROXINE 25mcg tablet PO SCH (07:54)
[2021-02-09] MEDS: anastrozole 1 MG tablet PO SCH (07:54)
[2021-02-09] MEDS: NYSTATIN CREAM - 30GM TUBE TP SCH ×2 (07:55→20:32)
[2021-02-09] MEDS: enoxaparin 40mg/0.4ml syringe SQ SCH (07:55)
[2021-02-09] MEDS ORDERED: furosemide 40mg/4ml inj IV ONE (12:20)
--- NOTE | 2021-02-09 15:05 | NUR ---
PAGER ID: [phone] MESSAGE: Ashley Piedra- BLEEEDING OUT HER OPEN WOUND ON BUTT. DRIPPING PRETTY STEADY. APPLIED PRESSURE, MAY NEED MORE THAN THAT. . Kary [phone]
--- NOTE | 2021-02-09 15:14 | NUR ---
bACK TO BED, TURNED PT ONTO HER BACK TO APPLY PRESSURE TO HER OPEN BLEEDING SKIN ON HER l BUTTOCKS, NOT A GI BLEED. aWAITING CALL BACK FROM md BRAVO. CHARGE NOTIFIED.
--- NOTE | 2021-02-09 15:58 | NUR ---
mD Minaya ARRIVED, WE ASSESSED PT. i FOUND OUT AFTERWARD FROM THE AIDES THEY JUST CLEANED HER 10 MIN BEFORE WE CAME IN TO ASSESS, SO SHE WAS CLEAN A WHISTLE AND THE PRESSURE HAD STAUNCHED FURTHER BLEEDING- MILD OOZE ON ASSESSMENT. oRDERS WERE OBTAINED NONE THE LESS TO STOP LOVENOX. APPLIED BARRIER CREAM TO RAW SKIN. REPOSITIONED PT TO SIDELYING. WILL CONT TO ASSESS
--- NOTE | 2021-02-09 18:21 | NUR ---
Problems reprioritized. Patient report given, questions answered & plan of care reviewed with Kaelyn DOWNS.
[2021-02-09] MEDS: azithromycin 250mg tablet PO SCH (20:35)
[2021-02-09] MEDS ORDERED: warfarin 5mg tablet PO ONE (21:00)
[2021-02-09] MEDS ORDERED: warfarin 4mg tablet PO ONE (21:00)
[2021-02-09] MEDS: CefTRIAXone/D5W-Rocephin 1gm 50 ML IV SCH (22:34)
[2021-02-10 02:00] VITALS: BP 118/84
[2021-02-10] MEDS: oxyCODONE/APAP 10/325mg tablet PO PRN ×5 (03:22→23:22)
[2021-02-10] MEDS: LORazepam 0.5 MG tablet PO PRN ×2 (05:31→16:47)
[2021-02-10 06:00] VITALS: BP 127/67
--- NOTE | 2021-02-10 06:30 | NUR ---
Patient in room PCU 3023. I have received report from YARELI BAXTER and had the opportunity to ask questions and assume patient care.
--- NOTE | 2021-02-10 06:44 | NUR ---
Problems reprioritized. Patient report given, questions answered & plan of care reviewed with YARELI Hernandez.
[2021-02-10] MEDS: docusate sod 100mg capsule PO SCH ×2 (08:00→20:22)
[2021-02-10] MEDS: furosemide 40mg/4ml inj IV SCH (08:14)
[2021-02-10] MEDS: sodium chloride 1gm tablet PO SCH ×4 (08:15→20:22)
[2021-02-10] MEDS: diltiazem 30mg tablet PO SCH ×4 (08:15→20:22)
[2021-02-10] MEDS: oxybutynin 5mg tablet PO SCH ×2 (08:15→20:22)
[2021-02-10] MEDS: folic acid 0.4mg tablet PO SCH (08:15)
[2021-02-10] MEDS: levoTHYROXINE 25mcg tablet PO SCH (08:15)
[2021-02-10] MEDS: thiamine 100mg tablet PO SCH (08:15)
[2021-02-10] MEDS: JUVEN Smoothie Arginine/Glut./Ca2+Bmb (Juven 19.3pkt) 240ml cup PO SCH ×2 (08:21→17:49)
[2021-02-10] MEDS: anastrozole 1 MG tablet PO SCH (08:58)
[2021-02-10] MEDS: NYSTATIN CREAM - 30GM TUBE TP SCH ×2 (08:59→20:00)
[2021-02-10 11:00] VITALS: BP 132/84
[2021-02-10 15:00] VITALS: BP 118/70
--- NOTE | 2021-02-10 18:23 | NUR ---
Problems reprioritized. Patient report given, questions answered & plan of care reviewed with rafat Hobbs.
[2021-02-10 19:00] VITALS: BP 141/84
[2021-02-10] MEDS: azithromycin 250mg tablet PO SCH (20:22)
[2021-02-10] MEDS ORDERED: warfarin 4mg tablet PO ONE (21:00)
[2021-02-10 22:00] VITALS: BP 116/67
[2021-02-10] MEDS: CefTRIAXone/D5W-Rocephin 1gm 50 ML IV SCH (22:10)
[2021-02-11 02:00] VITALS: BP 123/63
[2021-02-11] MEDS: LORazepam 0.5 MG tablet PO PRN ×2 (02:01→12:53)
[2021-02-11] MEDS: oxyCODONE/APAP 10/325mg tablet PO PRN ×4 (03:05→15:55)
[2021-02-11 06:00] VITALS: BP 129/77
--- NOTE | 2021-02-11 06:19 | NUR ---
Problems reprioritized. Patient report given, questions answered & plan of care reviewed with ÁNGEL. Addendum: 02/11/21 at 0619 by Mejia Bull RN Amended: Links added.
[2021-02-11] MEDS: anastrozole 1 MG tablet PO SCH (07:23)
[2021-02-11] MEDS: furosemide 40mg/4ml inj IV SCH (07:24)
[2021-02-11] MEDS: levoTHYROXINE 25mcg tablet PO SCH (07:26)
[2021-02-11] MEDS: docusate sod 100mg capsule PO SCH (07:26)
[2021-02-11] MEDS: folic acid 0.4mg tablet PO SCH (07:26)
[2021-02-11] MEDS: oxybutynin 5mg tablet PO SCH (07:26)
[2021-02-11] MEDS: sodium chloride 1gm tablet PO SCH ×2 (07:27→12:54)
[2021-02-11] MEDS: diltiazem 30mg tablet PO SCH ×2 (07:27→12:53)
[2021-02-11] MEDS: NYSTATIN CREAM - 30GM TUBE TP SCH (07:29)
[2021-02-11] MEDS: thiamine 100mg tablet PO SCH (07:32)
[2021-02-11] MEDS: JUVEN Smoothie Arginine/Glut./Ca2+Bmb (Juven 19.3pkt) 240ml cup PO SCH (07:33)
[2021-02-11 11:00] VITALS: BP 136/73
[2021-02-11 15:00] VITALS: BP 143/82
--- NOTE | 2021-02-11 16:30 | NUR ---
Pt transported to [facility] by [facility]. Tele monitor dc'd. Right IJ removed per protocol with no worrisome bleeding. Wound care pictures taken. Report called to desmond at [facility]. Nick left in for wounds. Pt appropriate for transfer. All belongings taken from room.
== END 2021-02-11 16:12 | DRG 134 ==
LOC: ER 18:42 → ED HOLD 21:53 → PCU 3S 02-05 13:50
PROVIDERS: ADMIT Family Medicine; ATTEND Family Medicine
PROC: BW2G1ZZ Computerized Tomography (CT Scan) of Pelvic Region using Low Osmolar Contrast (ICD-10-PCS; principal; 2021-02-05)
DX: I26.99 Other pulmonary embolism without acute cor pulmonale (principal); J96.01 Acute respiratory failure with hypoxia; E46 Unspecified protein-calorie malnutrition; J18.9 Pneumonia, unspecified organism; D63.8 Anemia in other chronic diseases classified elsewhere; E87.1 Hypo-osmolality and hyponatremia; I48.20 Chronic atrial fibrillation, unspecified; Z99.81 Dependence on supplemental oxygen; L03.315 Cellulitis of perineum; F41.9 Anxiety disorder, unspecified; S31.829A Unspecified open wound of left buttock, initial encounter; G89.29 Other chronic pain; M54.9 Dorsalgia, unspecified; R74.01 Elevation of levels of liver transaminase levels; E03.9 Hypothyroidism, unspecified; I10 Essential (primary) hypertension; S31.819A Unspecified open wound of right buttock, initial encounter; E66.01 Morbid (severe) obesity due to excess calories; X58.XXXA Exposure to other specified factors, initial encounter; Z68.41 Body mass index [BMI] 40.0-44.9, adult; Z80.0 Family history of malignant neoplasm of digestive organs; Z85.3 Personal history of malignant neoplasm of breast; Z86.711 Personal history of pulmonary embolism; Z87.01 Personal history of pneumonia (recurrent); Z98.84 Bariatric surgery status; Z90.49 Acquired absence of other specified parts of digestive tract; Z79.01 Long term (current) use of anticoagulants; Y93.89 Activity, other specified; Y92.89 Other specified places as the place of occurrence of the external cause; Y99.8 Other external cause status
CPT/HCPCS: 36415; 36600; 70450; 71045; 72193; 80048; 80053; 81003; 82803; 83540; 83550; 83605; 83735; 84100; 84145; 84484; 85018; 85025; 85610; 85730; 87040; 87070; 87077; 87081; 87186; 93005; 94640; 94760; 97110; 97161; 97530; 97535; 99285; G0378; J0456; J0696; J1650; J1940; J3430; J7030; Q9967

== ENCOUNTER 2021-11-04 13:43 | Emergency (ER) | payer MEDICAID ==
[~2021-11-04] VITALS: Ht 167.6 cm; Wt 109.1 kg
[~2021-11-04 13:43] MED LIST changes: -LEVO500T89 PO
[2021-11-04 14:21] VITALS: BP 124/77
[2021-11-04] MEDS ORDERED: ketorolac trometh. 30mg/ml inj. IM ONE (14:50)
[2021-11-04] MEDS ORDERED: ACET-1008 PO ×2 (14:56)
[2022-01-09] MEDS ORDERED: WARF4TAB69 PO (17:11)
[2022-01-09] MEDS ORDERED: FOLI1TAB27 PO (17:13)
[2022-01-09] MEDS ORDERED: THIA100T66 PO (17:13)
[2022-01-09] MEDS ORDERED: CYAN100020 SL (17:13)
[2022-01-09] MEDS ORDERED: ERGO500056 PO (17:14)
== END 2021-11-04 15:12 | disposition home or self-care (01) ==
LOC: ER 13:44
DX: S39.012A Strain of muscle, fascia and tendon of lower back, initial encounter (principal); I10 Essential (primary) hypertension; G89.29 Other chronic pain; I48.91 Unspecified atrial fibrillation; F41.9 Anxiety disorder, unspecified; Z90.49 Acquired absence of other specified parts of digestive tract; Z98.890 Other specified postprocedural states; Z72.89 Other problems related to lifestyle; Z79.899 Other long term (current) drug therapy; X58.XXXA Exposure to other specified factors, initial encounter; Y93.89 Activity, other specified; Y92.89 Other specified places as the place of occurrence of the external cause; Y99.8 Other external cause status
CPT/HCPCS: 96372; 99283

== ENCOUNTER 2021-12-04 18:00 | Inpatient (IN) | payer MEDICARE, MEDICAID ==
[~2021-12-04] VITALS: Ht 166.4 cm; Wt 113.6 kg
[~2021-12-04 18:00] MED LIST changes: +ACET-1008 PO
[2021-12-05] MEDS ORDERED: morphine 10mg/ml inj. IM ONE (02:50)
[2021-12-05] MEDS ORDERED: ondansetron 4mg rapidly disintigrating tab PO ONE (02:50)
[2021-12-05] MEDS ORDERED: HYDROcodone/acetaminophen 10/325mg tab PO ONE (03:30)
[2021-12-05] MEDS ORDERED: HYDR-3972 PO ×2 (05:50)
[2021-12-05 06:23] LABS: BASOPHILS % (AUTO) 0.1 % (0-1); EOSINOPHILS # (AUTO) 0.1 X10'3 (0-0.9); EOSINOPHILS % (AUTO) 0.7 % (0-6); LYMPHOCYTES # (AUTO) 0.7 X10'3 (1.1-4.8); LYMPHOCYTES % (AUTO) 8.8 % (21-51); MEAN PLATELET VOLUME 7.7 FL (7.4-10.4); MONOCYTES # (AUTO) 0.7 X10'3 (0-0.9); NEUTROPHILS # (AUTO) 6.6 X10'3 (1.8-7.7); NEUTROPHILS % (AUTO) 81.4 % (42-75); PLATELET COUNT 263 X10'3 (140-440); RED CELL DISTRIBUTION WIDTH 23.8 % (11.5-14.5); WHITE BLOOD COUNT 8.1 X10'3 (4.5-11.0)
--- NOTE | 2021-12-05 06:41 | NUR ---
Assumed care of pt, pt easily aroused in no acute distress. Pt awaiting lab results before disposition.
[2021-12-05 07:22] LABS: HEMOGLOBIN 11.1 g/dl (12.0-16.0); RED BLOOD COUNT 5.03 X10'6 (4.20-5.60)
[2021-12-05 07:23] LABS: MEAN CORPUSCULAR HEMOGLOBIN 22.1 PG (27.0-31.0); MEAN CORPUSCULAR HGB CONC 31.7 g/dL (33.0-36.5); MEAN CORPUSCULAR VOLUME 69.6 FL (78-98)
[2021-12-05] MEDS ORDERED: HYDROcodone/acetaminophen 5mg/325mg tablet PO ONE (07:45)
--- NOTE | 2021-12-05 07:57 | NUR ---
Discharge instructions given, pt verbalized understanding.
--- NOTE | 2021-12-05 10:05 | NUR ---
Pt unable to ambulate upon discharge, ed provider made aware. Discharge cancelled, pt will be evaluated further.
[2021-12-05 10:29] LABS: ALANINE AMINOTRANSFERASE 38 U/L (12-78); ALKALINE PHOSPHATASE 272 IU/L (46-116); ANION GAP 10 (8-16); BLOOD UREA NITROGEN 15 MG/DL (7-18); BUN/CREATININE RATIO 22.1 (6.6-38.0); CALCIUM 8.7 MG/DL (8.5-10.1); CHLORIDE 99 MMOL/L (99-107); CREATININE 0.68 MG/DL (0.40-0.90); POTASSIUM 3.6 MMOL/L (3.5-5.1); SODIUM 133 MMOL/L (135-145); TOTAL CARBON DIOXIDE 24.1 MMOL/L (24-32); eGFR 88 ML/MIN
[2021-12-05 10:33] LABS: ALBUMIN/GLOBULIN RATIO 0.6 (1.1-1.5); ASPARTATE AMINO TRANSFERASE 53 U/L (10-37); BILIRUBIN,TOTAL 0.6 MG/DL (0.1-1.0); GLUCOSE 113 MG/DL (70-104)
[2021-12-05] MEDS ORDERED: morphine 2 MG/ML inj. syringe IV ONE ×2 (11:30→13:30)
[2021-12-05] MEDS ORDERED: ondansetron/PF 4mg/2ml inj IV PRN (13:40)
[2021-12-05] MEDS ORDERED: magnesium 2GM in 50ml NS 50 ML IV PRN (13:40)
[2021-12-05] MEDS ORDERED: magnesium 4gm in 100ml NS 100 ML IV PRN (13:40)
[2021-12-05] MEDS ORDERED: potassium CL 10mEq/100ml bag 100 ML IV PRN (13:40)
[2021-12-05] MEDS ORDERED: acetaminophen 325mg tablet PO PRN ×2 (13:40)
[2021-12-05] MEDS ORDERED: magnesium hydroxide 30ml (MOM) UD suspension PO PRN (13:40)
[2021-12-05] MEDS ORDERED: mag hydrox/Alum hydrox/simeth 30ml oral suspension PO PRN (13:40)
[2021-12-05] MEDS ORDERED: LORazepam 2 mg/ml vial IV PRN (13:40)
[2021-12-05] MEDS ORDERED: haloperidol 5mg tablet PO PRN (13:40)
[2021-12-05] MEDS ORDERED: POTASSIUM BICARB 20meq eff tab 20 MEQ TABLET.EFF PO PRN ×2 (13:40)
[2021-12-05] MEDS ORDERED: haloperidol lactate 5mg/ml inj IM PRN (13:40)
--- NOTE | 2021-12-05 15:01 | NUR ---
Inserted #22g int to left wrist, noted good blood return, flushed with 10cc ns flush, iv patent and intact. Pt tolerated well.
[2021-12-05] MEDS ORDERED: DILT120C88 PO (15:27)
[2021-12-05] MEDS ORDERED: SERT-433 PO (15:27)
[2021-12-05] MEDS ORDERED: WARF3TAB56 PO (15:34)
--- NOTE | 2021-12-05 16:20 | NUR ---
MRI HERE, PT IS REFUSING TO GO TO MRI DUE TO BEING SEVERLY CLOSTRAPHOBIC. PT RN NOTIFIED
--- NOTE | 2021-12-05 16:45 | NUR ---
Pt given snack, tolerating well. Pt continues to be monitored.
[2021-12-05] MEDS: morphine 2 MG/ML inj. syringe IV PRN (19:56)
[2021-12-05] MEDS: K and/or MAG REPLACEMENT MC SCH (20:00)
[2021-12-05] MEDS: docusate sod 100mg capsule PO SCH (20:00)
[2021-12-05] MEDS: HYDROcodone/acetaminophen 5mg/325mg tablet PO PRN (22:05)
[2021-12-05] MEDS: warfarin 3mg tablet PO SCH (22:07)
[2021-12-06] MEDS: morphine 2 MG/ML inj. syringe IV PRN ×2 (00:18→06:21)
[2021-12-06] MEDS: HYDROcodone/acetaminophen 5mg/325mg tablet PO PRN (07:42)
[2021-12-06 07:59] LABS: BASOPHILS % (AUTO) 0.2 % (0-1); EOSINOPHILS # (AUTO) 0.1 X10'3 (0-0.9); EOSINOPHILS % (AUTO) 1.9 % (0-6); HEMATOCRIT 34.2 % (35.0-45.0); LYMPHOCYTES # (AUTO) 0.6 X10'3 (1.1-4.8); MEAN CORPUSCULAR HEMOGLOBIN 21.2 PG (27.0-31.0); MEAN CORPUSCULAR HGB CONC 29.2 g/dL (33.0-36.5); MEAN CORPUSCULAR VOLUME 72.6 FL (78-98); MEAN PLATELET VOLUME 7.7 FL (7.4-10.4); MONOCYTES # (AUTO) 0.5 X10'3 (0-0.9); MONOCYTES % (AUTO) 10.8 % (2-12); NEUTROPHILS # (AUTO) 3.4 X10'3 (1.8-7.7); NEUTROPHILS % (AUTO) 74.1 % (42-75); PLATELET COUNT 232 X10'3 (140-440); RED BLOOD COUNT 4.71 X10'6 (4.20-5.60); RED CELL DISTRIBUTION WIDTH 23.9 % (11.5-14.5); WHITE BLOOD COUNT 4.6 X10'3 (4.5-11.0)
[2021-12-06 08:00] VITALS: BP 119/67
[2021-12-06] MEDS: docusate sod 100mg capsule PO SCH ×2 (08:00→20:00)
[2021-12-06] MEDS: K and/or MAG REPLACEMENT MC SCH ×2 (08:00→20:00)
[2021-12-06] MEDS: anastrozole 1 MG tablet PO SCH (08:00)
--- NOTE | 2021-12-06 08:05 | NUR ---
Assumed care of this patient at 0630am, awake, alert and orientedx4. On room air, no form of distress noted. VSS. Noble given for breakthrough pain. As per report from pm rn, multiple attempts has been made to call report and transfer patient to the floor. Detailed report given to Shelley douglass. Opportunity provided to ask questions, all concerns/questions addressed. Patient transferred via wheelchair to [facility].
[2021-12-06 08:23] LABS: ALANINE AMINOTRANSFERASE 36 U/L (12-78); ALBUMIN 2.8 G/DL (3.4-5.0); ALKALINE PHOSPHATASE 249 IU/L (46-116); ANION GAP 4 (8-16); BLOOD UREA NITROGEN 16 MG/DL (7-18); CHLORIDE 101 MMOL/L (99-107); CREATININE 0.64 MG/DL (0.40-0.90); LIPASE < 50 U/L (73-393); MAGNESIUM 1.9 MG/DL (1.5-2.4); POTASSIUM 3.5 MMOL/L (3.5-5.1); SODIUM 134 MMOL/L (135-145); TOTAL CARBON DIOXIDE 29.2 MMOL/L (24-32); eGFR > 90 ML/MIN
[2021-12-06 08:24] LABS: ALBUMIN/GLOBULIN RATIO 0.5 (1.1-1.5); ASPARTATE AMINO TRANSFERASE 41 U/L (10-37); BILIRUBIN,TOTAL 0.6 MG/DL (0.1-1.0); CALCIUM 8.3 MG/DL (8.5-10.1); GLUCOSE 84 MG/DL (70-104); PHOSPHORUS 4.1 MG/DL (2.3-4.5); TOTAL PROTEIN 7.9 G/DL (6.4-8.2)
[2021-12-06 08:39] LABS: % IRON SATURATION 7 % (11-46); IRON 24 UG/DL (49-151); TOTAL IRON BINDING CAPACITY 337 UG/DL (259-388)
[2021-12-06 09:19] LABS: ANISOCYTOSIS 3+; HYPOCHROMASIA 1+; MICROCYTOSIS 1+; POLYCHROMASIA 1+; STOMATOCYTES 2+
[2021-12-06] MEDS: multivitamins, therapeutics tablet PO SCH (09:44)
[2021-12-06] MEDS: oxybutynin 5mg tablet PO SCH ×2 (09:44→20:36)
[2021-12-06] MEDS: sertraline 50mg tablet PO SCH (09:45)
[2021-12-06] MEDS: diltiazem CD 120mg capsule (once-daily) PO SCH (09:46)
[2021-12-06] MEDS: morphine 4 MG/ML inj SYRINge IV PRN ×3 (09:47→20:36)
[2021-12-06 10:00] VITALS: BP 101/68
--- NOTE | 2021-12-06 10:34 | NUR ---
Paged PICC RN
[2021-12-06 10:36] LABS: PLATELET ESTIMATE NORMAL
[2021-12-06] MEDS ORDERED: LORazepam 2 mg/ml vial IV ONE (12:45)
[2021-12-06] MEDS: HYDROcodone/acetaminophen 10/325mg tab PO PRN ×3 (12:59→22:48)
--- NOTE | 2021-12-06 15:01 | NUR ---
Faxed completed MRI form to att. Murphy at [facility]. MRI at this moment scheduled Thursday at 3pm per CM.
--- NOTE | 2021-12-06 15:22 | NUR ---
Wound pictures taken and placed in chart.
--- NOTE | 2021-12-06 15:26 | NUR ---
PAGER ID: [phone] MESSAGE: Tonya Boggs 4024B Pt. shows s/sx dehydration. Also only 50ml purwik OP since admitted to floor. Light darshan. Order fluids? Akosua 9257
--- NOTE | 2021-12-06 15:47 | NUR ---
Unknown hospitalist. Bob denies having this pt. No response from Martinez or Prisca. Will page group pager.
--- NOTE | 2021-12-06 15:47 | NUR ---
PAGER ID: [phone] MESSAGE: Tonya Canoen 4024B Pt. shows s/sx dehydration. Also only 50ml purwik OP since admitted to floor. Light darshan. Order fluids? Akosua 4986
--- NOTE | 2021-12-06 15:49 | NUR ---
PAGER ID: [phone] MESSAGE: PAGER ID: [phone] MESSAGE: Tonya Boggs 4024B Pt. shows s/sx dehydration. Also only 50ml purwik OP since admitted to floor. Light darshan. Order fluids? Akosua 9714
--- NOTE | 2021-12-06 15:58 | NUR ---
Spoke to Bob HAYES about poor urine output. would like pt. bladder scanned and straight cathed if greater than 400 ml
--- NOTE | 2021-12-06 16:13 | NUR ---
Pt. bladder scanned. 107ml shown in bladder.
--- NOTE | 2021-12-06 16:16 | NUR ---
PAGER ID: [phone] MESSAGE: Tonya Boggs 4024B Pt. bladder scanned only 107ml in bladder. Akosua 2778
--- NOTE | 2021-12-06 17:00 | NUR ---
Hospitalist called back to say that she was aware of output and bladder scan results. No new orders at this time.
[2021-12-06 18:00] VITALS: BP 115/70
--- NOTE | 2021-12-06 18:16 | NUR ---
Gave report to Norma DOWNS.
--- NOTE | 2021-12-06 18:34 | NUR ---
Patient in room ORTHO 4024. I have received report from YARELI South and had the opportunity to ask questions and assume patient care.
[2021-12-06] MEDS: warfarin 3mg tablet PO SCH (21:21)
[2021-12-06 22:00] VITALS: BP 93/62
[2021-12-07] MEDS: morphine 4 MG/ML inj SYRINge IV PRN ×4 (00:56→23:00)
[2021-12-07] MEDS: HYDROcodone/acetaminophen 10/325mg tab PO PRN ×4 (04:08→20:38)
[2021-12-07 06:00] VITALS: BP 88/64
--- NOTE | 2021-12-07 06:11 | NUR ---
Problems reprioritized. Patient report given, questions answered & plan of care reviewed with YARELI Lechuga.
--- NOTE | 2021-12-07 06:47 | NUR ---
Patient in room ORTHO 4024. I have received report from YARELI Green and had the opportunity to ask questions and assume patient care.
[2021-12-07 07:19] LABS: BASOPHILS % (AUTO) 0.3 % (0-1); EOSINOPHILS # (AUTO) 0.1 X10'3 (0-0.9); EOSINOPHILS % (AUTO) 1.3 % (0-6); LYMPHOCYTES # (AUTO) 0.8 X10'3 (1.1-4.8); LYMPHOCYTES % (AUTO) 12.1 % (21-51); MONOCYTES # (AUTO) 0.8 X10'3 (0-0.9); MONOCYTES % (AUTO) 13.1 % (2-12); NEUTROPHILS # (AUTO) 4.7 X10'3 (1.8-7.7); NEUTROPHILS % (AUTO) 73.2 % (42-75); PLATELET COUNT 237 X10'3 (140-440)
[2021-12-07 07:36] LABS: ALANINE AMINOTRANSFERASE 28 U/L (12-78); ALBUMIN 2.7 G/DL (3.4-5.0); ALKALINE PHOSPHATASE 201 IU/L (46-116); ANION GAP 6 (8-16); BLOOD UREA NITROGEN 25 MG/DL (7-18); BUN/CREATININE RATIO 29.1 (6.6-38.0); CHLORIDE 100 MMOL/L (99-107); CREATININE 0.86 MG/DL (0.40-0.90); LIPASE < 50 U/L (73-393); MAGNESIUM 1.8 MG/DL (1.5-2.4); SODIUM 133 MMOL/L (135-145); TOTAL CARBON DIOXIDE 27.5 MMOL/L (24-32); eGFR 67 ML/MIN
[2021-12-07 07:56] LABS: ALBUMIN/GLOBULIN RATIO 0.6 (1.1-1.5); BILIRUBIN,TOTAL 0.5 MG/DL (0.1-1.0); CALCIUM 8.7 MG/DL (8.5-10.1)
[2021-12-07 07:59] LABS: ASPARTATE AMINO TRANSFERASE 27 U/L (10-37); GLUCOSE 87 MG/DL (70-104)
[2021-12-07] MEDS: K and/or MAG REPLACEMENT MC SCH ×2 (08:00→20:00)
[2021-12-07 08:02] LABS: HEMATOCRIT 30.7 % (35.0-45.0); HEMOGLOBIN 9.4 g/dl (12.0-16.0); MEAN CORPUSCULAR HEMOGLOBIN 22.5 PG (27.0-31.0); MEAN CORPUSCULAR HGB CONC 30.6 g/dL (33.0-36.5); MEAN CORPUSCULAR VOLUME 73.6 FL (78-98); MEAN PLATELET VOLUME 7.7 FL (7.4-10.4); RED BLOOD COUNT 4.16 X10'6 (4.20-5.60); RED CELL DISTRIBUTION WIDTH 23.3 % (11.5-14.5); WHITE BLOOD COUNT 6.6 X10'3 (4.5-11.0)
[2021-12-07 09:18] LABS: ANISOCYTOSIS 3+; HYPOCHROMASIA 1+; MICROCYTOSIS 1+; PLATELET ESTIMATE NORMAL; POLYCHROMASIA FEW
[2021-12-07 09:19] LABS: STOMATOCYTES 1+
[2021-12-07] MEDS: normal saline 1000ml 1,000 ML IV SCH (09:30)
[2021-12-07] MEDS ORDERED: LORazepam 2 mg/ml vial IV PRN ×2 (09:30→13:40)
[2021-12-07] MEDS ORDERED: LORazepam 1 MG tablet PO PRN ×2 (09:30→13:40)
[2021-12-07 10:00] VITALS: BP 117/68
[2021-12-07] MEDS: diltiazem CD 120mg capsule (once-daily) PO SCH (11:13)
[2021-12-07] MEDS: anastrozole 1 MG tablet PO SCH (11:13)
[2021-12-07] MEDS: oxybutynin 5mg tablet PO SCH ×2 (11:14→20:39)
[2021-12-07] MEDS: sertraline 50mg tablet PO SCH (11:14)
[2021-12-07] MEDS: multivitamins, therapeutics tablet PO SCH (11:14)
--- NOTE | 2021-12-07 16:10 | NUR ---
PAGER ID: [phone] MESSAGE: Estelle [phone] Re: Tonya Boggs Room 4024B - Anjel talked to case management and she can't go to MRI tomorrow because we don't have staff to go with her.
[2021-12-07 18:00] VITALS: BP 123/69
--- NOTE | 2021-12-07 18:42 | NUR ---
Patient in room ORTHO 4024. I have received report from YARELI Lechuga and had the opportunity to ask questions and assume patient care.
--- NOTE | 2021-12-07 19:07 | NUR ---
Problems reprioritized. Patient report given, questions answered & plan of care reviewed with YARELI Green.
[2021-12-07] MEDS ORDERED: warfarin 1mg tablet PO ONE (21:00)
[2021-12-07 22:00] VITALS: BP 101/56
[2021-12-08] MEDS: HYDROcodone/acetaminophen 10/325mg tab PO PRN ×6 (01:04→23:15)
[2021-12-08] MEDS: morphine 4 MG/ML inj SYRINge IV PRN ×3 (03:31→12:41)
[2021-12-08] MEDS: normal saline 1000ml 1,000 ML IV SCH (05:30)
[2021-12-08 06:00] VITALS: BP 122/75
[2021-12-08 06:03] LABS: CLARITY,URINE CLOUDY (Clear); COLOR,URINE YELLOW (Yellow); GLUCOSE, URINE NEGATIVE (Neg); KETONES,URINE NEGATIVE (Neg); LEUKOCYTE ESTERASE ,URINE NEGATIVE (Neg); NITRITES, URINE POSITIVE (Neg); OCCULT BLOOD,URINE NEGATIVE (Neg); PROTEIN,URINE NEGATIVE (Neg); UROBILINOGEN,URINE 0.2 E.U/dL (0.2-1.0)
[2021-12-08 06:06] LABS: BASOPHILS % (AUTO) 0.4 % (0-1); EOSINOPHILS # (AUTO) 0.1 X10'3 (0-0.9); EOSINOPHILS % (AUTO) 1.9 % (0-6); LYMPHOCYTES # (AUTO) 0.7 X10'3 (1.1-4.8); LYMPHOCYTES % (AUTO) 14.9 % (21-51); MEAN PLATELET VOLUME 8.7 FL (7.4-10.4); MONOCYTES # (AUTO) 0.6 X10'3 (0-0.9); MONOCYTES % (AUTO) 13.7 % (2-12); NEUTROPHILS # (AUTO) 3.2 X10'3 (1.8-7.7); NEUTROPHILS % (AUTO) 69.1 % (42-75); PLATELET COUNT 203 X10'3 (140-440); WHITE BLOOD COUNT 4.6 X10'3 (4.5-11.0)
[2021-12-08 06:28] LABS: UA COLLECTION TYPE NON-SPECIFIED
[2021-12-08 06:29] LABS: BACTERIA,URINE 4+ /HPF (Neg); MUCUS STRANDS NONE SEEN /LPF (Neg); RBC,URINE NONE SEEN /HPF (0-2); SQUAMOUS EPITHELIAL CELL,UR FEW /LPF (FEW); TRANSITIONAL EPI CELLS,URINE FEW /HPF; WBC,URINE 0-4 /HPF (0-4)
[2021-12-08 06:30] LABS: ALANINE AMINOTRANSFERASE 24 U/L (12-78); ALBUMIN 2.6 G/DL (3.4-5.0); ALKALINE PHOSPHATASE 180 IU/L (46-116); ANION GAP 1 (8-16); BLOOD UREA NITROGEN 17 MG/DL (7-18); BUN/CREATININE RATIO 29.8 (6.6-38.0); CHLORIDE 100 MMOL/L (99-107); CREATININE 0.57 MG/DL (0.40-0.90); LIPASE < 50 U/L (73-393); MAGNESIUM 1.9 MG/DL (1.5-2.4); POTASSIUM 4.2 MMOL/L (3.5-5.1); SODIUM 131 MMOL/L (135-145); TOTAL CARBON DIOXIDE 29.8 MMOL/L (24-32); eGFR > 90 ML/MIN
--- NOTE | 2021-12-08 06:30 | NUR ---
received report from rafat shelton
[2021-12-08 06:37] LABS: ALBUMIN/GLOBULIN RATIO 0.6 (1.1-1.5); ASPARTATE AMINO TRANSFERASE 24 U/L (10-37); BILIRUBIN,TOTAL 0.4 MG/DL (0.1-1.0); CALCIUM 8.1 MG/DL (8.5-10.1); GLUCOSE 84 MG/DL (70-104); PHOSPHORUS 2.9 MG/DL (2.3-4.5)
--- NOTE | 2021-12-08 06:39 | NUR ---
Problems reprioritized. Patient report given, questions answered & plan of care reviewed with YARELI Rosas.
[2021-12-08 06:45] LABS: HEMATOCRIT 27.9 % (35.0-45.0); HEMOGLOBIN 8.5 g/dl (12.0-16.0); MEAN CORPUSCULAR HEMOGLOBIN 22.5 PG (27.0-31.0); MEAN CORPUSCULAR HGB CONC 30.7 g/dL (33.0-36.5); MEAN CORPUSCULAR VOLUME 73.4 FL (78-98); RED CELL DISTRIBUTION WIDTH 23.1 % (11.5-14.5)
[2021-12-08] MEDS: K and/or MAG REPLACEMENT MC SCH ×2 (08:00→20:00)
[2021-12-08] MEDS: multivitamins, therapeutics tablet PO SCH (08:39)
[2021-12-08] MEDS: sertraline 50mg tablet PO SCH (08:39)
[2021-12-08] MEDS: oxybutynin 5mg tablet PO SCH ×2 (08:39→20:18)
[2021-12-08] MEDS: diltiazem CD 120mg capsule (once-daily) PO SCH (08:40)
[2021-12-08] MEDS: anastrozole 1 MG tablet PO SCH (08:40)
[2021-12-08 10:00] VITALS: BP 111/77
[2021-12-08] MEDS ORDERED: morphine 2 MG/ML inj. syringe IV PRN (15:10)
[2021-12-08] MEDS: morphine 2 MG/ML inj. syringe IV PRN ×2 (17:07→21:12)
[2021-12-08 18:00] VITALS: BP 112/62
--- NOTE | 2021-12-08 18:37 | NUR ---
gave report to rafat contreras
[2021-12-08] MEDS ORDERED: warfarin 3mg tablet PO ONE (21:00)
[2021-12-08 22:00] VITALS: BP 103/66
--- NOTE | 2021-12-08 23:41 | NUR ---
pt refused to turn for wound buttocks picture. other wound pictures taken.
[2021-12-09] MEDS: morphine 2 MG/ML inj. syringe IV PRN ×4 (04:35→17:02)
[2021-12-09 05:42] LABS: BASOPHILS % (AUTO) 0.6 % (0-1); EOSINOPHILS # (AUTO) 0.1 X10'3 (0-0.9); EOSINOPHILS % (AUTO) 2.5 % (0-6); HEMOGLOBIN 8.5 g/dl (12.0-16.0); LYMPHOCYTES # (AUTO) 0.7 X10'3 (1.1-4.8); LYMPHOCYTES % (AUTO) 19.5 % (21-51); MEAN CORPUSCULAR HEMOGLOBIN 21.6 PG (27.0-31.0); MEAN CORPUSCULAR HGB CONC 30.4 g/dL (33.0-36.5); MEAN CORPUSCULAR VOLUME 71.2 FL (78-98); MEAN PLATELET VOLUME 8.5 FL (7.4-10.4); MONOCYTES # (AUTO) 0.7 X10'3 (0-0.9); MONOCYTES % (AUTO) 18.2 % (2-12); NEUTROPHILS # (AUTO) 2.3 X10'3 (1.8-7.7); NEUTROPHILS % (AUTO) 59.2 % (42-75); PLATELET COUNT 214 X10'3 (140-440); RED BLOOD COUNT 3.93 X10'6 (4.20-5.60); RED CELL DISTRIBUTION WIDTH 23.1 % (11.5-14.5); WHITE BLOOD COUNT 3.9 X10'3 (4.5-11.0)
[2021-12-09 05:55] LABS: ALANINE AMINOTRANSFERASE 28 U/L (12-78); ALBUMIN 2.5 G/DL (3.4-5.0); ALKALINE PHOSPHATASE 190 IU/L (46-116); ANION GAP 4 (8-16); BLOOD UREA NITROGEN 10 MG/DL (7-18); BUN/CREATININE RATIO 21.7 (6.6-38.0); CALCIUM 8.4 MG/DL (8.5-10.1); CHLORIDE 102 MMOL/L (99-107); CREATININE 0.46 MG/DL (0.40-0.90); LIPASE < 50 U/L (73-393); MAGNESIUM 1.8 MG/DL (1.5-2.4); POTASSIUM 4.4 MMOL/L (3.5-5.1); SODIUM 135 MMOL/L (135-145); TOTAL CARBON DIOXIDE 29.1 MMOL/L (24-32); eGFR > 90 ML/MIN
[2021-12-09 05:56] LABS: ALBUMIN/GLOBULIN RATIO 0.5 (1.1-1.5); ASPARTATE AMINO TRANSFERASE 27 U/L (10-37); BILIRUBIN,TOTAL 0.5 MG/DL (0.1-1.0); GLUCOSE 84 MG/DL (70-104); PHOSPHORUS 3.3 MG/DL (2.3-4.5); TOTAL PROTEIN 7.1 G/DL (6.4-8.2)
[2021-12-09 06:00] VITALS: BP 125/79
--- NOTE | 2021-12-09 06:30 | NUR ---
received report from rafat contreras
--- NOTE | 2021-12-09 06:37 | NUR ---
Problems reprioritized. Patient report given, questions answered & plan of care reviewed with YARELI DUKE.
[2021-12-09] MEDS: oxybutynin 5mg tablet PO SCH (07:10)
[2021-12-09] MEDS: anastrozole 1 MG tablet PO SCH (07:10)
[2021-12-09] MEDS: HYDROcodone/acetaminophen 10/325mg tab PO PRN ×3 (07:10→14:56)
[2021-12-09] MEDS: sertraline 50mg tablet PO SCH (07:11)
[2021-12-09] MEDS: diltiazem CD 120mg capsule (once-daily) PO SCH (07:11)
[2021-12-09] MEDS: multivitamins, therapeutics tablet PO SCH (07:11)
[2021-12-09] MEDS: K and/or MAG REPLACEMENT MC SCH (07:35)
[2021-12-09 08:18] LABS: ANISOCYTOSIS 3+; MICROCYTOSIS 1+; PLATELET ESTIMATE NORMAL; TOTAL CELLS COUNTED 100
[2021-12-09 08:19] LABS: HYPOCHROMASIA 1+
[2021-12-09 09:40] VITALS: BP 124/65
[2021-12-09] MEDS ORDERED: LORazepam 2 mg/ml vial IV PRN (13:40)
[2021-12-09] MEDS ORDERED: LORazepam 1 MG tablet PO PRN (13:40)
--- NOTE | 2021-12-09 15:14 | NUR ---
gave report to rafat mckeon at [facility] for transfer
--- NOTE | 2021-12-09 17:37 | NUR ---
pt d/c with [facility] personnel and with all belongings including lois and editao brace to go to [facility]
--- NOTE | 2021-12-09 17:38 | NUR ---
pt refused to have d/c photos taken because she claimed that she was too sore to turn today
[2021-12-09] MEDS ORDERED: warfarin 4mg tablet PO ONE (21:00)
[2021-12-10] MEDS ORDERED: thiamine 100mg tablet PO SCH (08:00)
[2021-12-10] MEDS ORDERED: folic acid 1mg tablet PO SCH (08:00)
== END 2021-12-09 17:35 | DRG 552 ==
LOC: ER 18:01 → ED HOLD 12-05 13:43 → EDBEDREQ 12-05 21:18 → ORTHO 4S 12-06 08:00
PROVIDERS: ADMIT Family Medicine; ATTEND Family Medicine
DX: S22.080A Wedge compression fracture of T11-T12 vertebra, initial encounter for closed fracture (principal); E87.1 Hypo-osmolality and hyponatremia; I48.20 Chronic atrial fibrillation, unspecified; D50.9 Iron deficiency anemia, unspecified; E03.9 Hypothyroidism, unspecified; F12.90 Cannabis use, unspecified, uncomplicated; G89.29 Other chronic pain; I10 Essential (primary) hypertension; F10.10 Alcohol abuse, uncomplicated; X58.XXXA Exposure to other specified factors, initial encounter; F41.9 Anxiety disorder, unspecified; K43.9 Ventral hernia without obstruction or gangrene; M51.36 Other intervertebral disc degeneration, lumbar region; Z20.822 Contact with and (suspected) exposure to COVID-19; Z80.0 Family history of malignant neoplasm of digestive organs; Z85.3 Personal history of malignant neoplasm of breast; Z86.711 Personal history of pulmonary embolism; Z87.891 Personal history of nicotine dependence; Z98.84 Bariatric surgery status; Z90.49 Acquired absence of other specified parts of digestive tract; Z79.899 Other long term (current) drug therapy; Z90.11 Acquired absence of right breast and nipple; Z79.01 Long term (current) use of anticoagulants; Y93.89 Activity, other specified; Y92.89 Other specified places as the place of occurrence of the external cause; Y99.8 Other external cause status
CPT/HCPCS: 36410; 36415; 72100; 80053; 81001; 82948; 83540; 83550; 83690; 83735; 84100; 85007; 85008; 85025; 85610; 87081; 87811; 97110; 97161; 97530; 97760; 99285; A4333; A4615; A6212; A6213; C1751; G0378; J2270; J2274; J7030

== ENCOUNTER 2022-09-06 16:44 | Inpatient (IN) | payer MEDICARE, MEDICAID ==
[~2022-09-06] VITALS: Ht 170.2 cm; Wt 100.0 kg
[~2022-09-06 16:44] MED LIST changes: -ACET-1008 PO; +CARCD120C PO; -DILT30TA10 PO; -FOLI0.4T14 PO; +FOLI1TAB27 PO; -LEVO25TA2 PO; +LEVO25TA7 PO; +RIVA20TA PO; +SERT-433 PO; -SODI100035 PO; -THIA50TA10 PO; -WARF6TAB49 PO
[2022-09-06] MEDS ORDERED: normal saline 1000ML IV soln IVB ONE (16:55)
[2022-09-06] MEDS ORDERED: ipratropium/albuterol 3ml nebule NEB ONE (16:55)
[2022-09-06] MEDS ORDERED: methylPREDNISolone sod succ 125mg/2ml vial IV ONE (16:55)
[2022-09-06] MEDS ORDERED: piperacillin/tazo 3.375gm/50ml 50 ML IV ONE (17:00)
[2022-09-06] MEDS ORDERED: vancomycin/NS 1 GM ADD-VANTAGE 250 ML IV ONE (17:00)
[2022-09-06 17:20] LABS: BASOPHILS % (AUTO) 0.2 % (0-1); EOSINOPHILS % (AUTO) 0 % (0-6); HEMATOCRIT 35.8 % (35.0-45.0); HEMOGLOBIN 10.6 g/dl (12.0-16.0); LYMPHOCYTES # (AUTO) 0.4 X10'3 (1.1-4.8); LYMPHOCYTES % (AUTO) 3.3 % (21-51); MEAN CORPUSCULAR HEMOGLOBIN 26.2 PG (27.0-31.0); MEAN CORPUSCULAR HGB CONC 29.6 g/dL (33.0-36.5); MEAN CORPUSCULAR VOLUME 88.5 FL (78-98); MEAN PLATELET VOLUME 8.4 FL (7.4-10.4); MONOCYTES # (AUTO) 0.6 X10'3 (0-0.9); MONOCYTES % (AUTO) 4.9 % (2-12); NEUTROPHILS # (AUTO) 11.8 X10'3 (1.8-7.7); NEUTROPHILS % (AUTO) 91.6 % (42-75); PLATELET COUNT 226 X10'3 (140-440); RED BLOOD COUNT 4.05 X10'6 (4.20-5.60); RED CELL DISTRIBUTION WIDTH 20.8 % (11.5-14.5); WHITE BLOOD COUNT 12.9 X10'3 (4.5-11.0)
[2022-09-06 17:30] LABS: ALANINE AMINOTRANSFERASE 11 U/L (12-78); ALBUMIN 2.8 G/DL (3.4-5.0); ALBUMIN/GLOBULIN RATIO 0.6 (1.1-1.5); ALKALINE PHOSPHATASE 157 IU/L (46-116); ANION GAP 12 (8-16); ASPARTATE AMINO TRANSFERASE 20 U/L (10-37); BILIRUBIN,TOTAL 0.6 MG/DL (0.1-1.0); BLOOD UREA NITROGEN 5 MG/DL (7-18); BUN/CREATININE RATIO 11.9 (10.0-20.0); CALCIUM 7.9 MG/DL (8.5-10.1); CHLORIDE 96 MMOL/L (99-107); CREATININE 0.42 MG/DL (0.40-0.90); GLUCOSE 103 MG/DL (70-104); POTASSIUM 3.7 MMOL/L (3.5-5.1); SODIUM 134 MMOL/L (135-145); TOTAL CARBON DIOXIDE 26.5 MMOL/L (24-32); TOTAL PROTEIN 7.3 G/DL (6.4-8.2); eGFR > 90 ML/MIN
[2022-09-06 17:34] LABS: ABG BASE EXCESS -0.5 mmol/L (-2.0-2.0); ABG HCO3 27.3 mmol/L (22.0-26.0); ABG PCO2 (T) 59.1 mmHg (32.0-45.0); ABG PO2 (T) 367.8 mmHg (75.0-100.0); ALLEN'S TEST POSITIVE; FCOHb 1.3 % (0.0-3.9); FMetHb 0.1 % (0.0-1.5); FO2Hb 98.6 % (94-97); PATIENT TEMPERATURE 36.7; RESPIRATORY RATE 10 b/min
[2022-09-06 17:37] LABS: MAGNESIUM 1.7 MG/DL (1.5-2.4)
[2022-09-06] MEDS ORDERED: furosemide 10 MG/1 ML 10ml inj IV ONE ×2 (17:40→20:30)
[2022-09-06] MEDS ORDERED: nitroGLYCERIN 0.4mg/hour patch TD ONE (17:45)
[2022-09-06] MEDS: diltiazem-NS 100mg/100ml 100 ML IV SCH (18:10)
[2022-09-06 19:06] LABS: ABG BASE EXCESS 2.2 mmol/L (-2.0-2.0); ABG HCO3 29.4 mmol/L (22.0-26.0); ABG OXYGEN SATURATION 99.2 % (94-97); ABG PCO2 (T) 56.1 mmHg (32.0-45.0); ABG PO2 (T) 157.9 mmHg (75.0-100.0); ALLEN'S TEST POSITIVE; FCOHb 1.4 % (0.0-3.9); FMetHb 0.1 % (0.0-1.5); FO2Hb 97.7 % (94-97); PATIENT TEMPERATURE 36.4; RESPIRATORY RATE 10 b/min; TOTAL HEMOGLOBIN 12.5 G/dl (12.0-16.0)
[2022-09-06] MEDS ORDERED: aspirin 81mg tab.chew PO ONE (19:10)
[2022-09-06] MEDS ORDERED: enoxaparin 100mg/ml syringe SUBCUT ONE (19:10)
[2022-09-06] MEDS ORDERED: ondansetron/PF 4mg/2ml inj IV ONE ×2 (19:40)
[2022-09-06] MEDS ORDERED: LORazepam 2 mg/ml vial IV ONE (20:15)
[2022-09-06] MEDS ORDERED: temazepam 15mg capsule PO PRN (21:00)
[2022-09-06] MEDS ORDERED: metoclopramide 5 mg/ml inj IV PRN (23:45)
[2022-09-06] MEDS ORDERED: ondansetron 4mg rapidly disintigrating tab PO PRN (23:45)
[2022-09-06] MEDS ORDERED: diphenhydrAMINE 50 mg/ml inj IV PRN (23:45)
[2022-09-06] MEDS ORDERED: bisacodyl 10mg suppository rectal RC PRN (23:45)
[2022-09-06] MEDS ORDERED: acetaminophen 325mg tablet PO PRN ×2 (23:45)
[2022-09-06] MEDS ORDERED: diphenhydrAMINE 25mg capsule PO PRN (23:45)
[2022-09-06] MEDS: normal saline 1000ml 1,000 ML IV SCH (23:45)
[2022-09-06] MEDS ORDERED: mag hydrox/Alum hydrox/simeth 30ml oral suspension PO PRN (23:45)
[2022-09-07] MEDS ORDERED: pantoprazole 40mg IV 80 MG in normal saline 100ml IV soln 100 ML IV ONE ×2
[2022-09-07 00:18] LABS: CREATINE KINASE 47 U/L (26-192); LIPASE < 50 U/L (73-393)
[2022-09-07 00:20] LABS: HEMOGLOBIN A1C 4.2 % (4.5-6.2)
[2022-09-07 02:28] LABS: CLARITY,URINE CLEAR (Clear); COLOR,URINE STRAW (Yellow); GLUCOSE, URINE NEGATIVE (Neg); KETONES,URINE 15 mg/dl (Neg); LEUKOCYTE ESTERASE ,URINE NEGATIVE (Neg); NITRITES, URINE NEGATIVE (Neg); OCCULT BLOOD,URINE MODERATE (Neg); PH,URINE 5.5 (4.8-8.0); PROTEIN,URINE NEGATIVE (Neg); UROBILINOGEN,URINE 0.2 E.U/dL (0.2-1.0)
[2022-09-07 02:29] LABS: UA COLLECTION TYPE FOLEY CATH
[2022-09-07 02:59] LABS: RBC,URINE 20-50 /HPF (0-2)
[2022-09-07 03:00] LABS: BACTERIA,URINE NONE SEEN /HPF (Neg)
[2022-09-07 03:01] LABS: MUCUS STRANDS MODERATE /LPF (Neg); SQUAMOUS EPITHELIAL CELL,UR FEW /LPF (FEW); WBC,URINE 0-4 /HPF (0-4)
[2022-09-07] MEDS: diltiazem-NS 100mg/100ml 100 ML IV SCH ×2 (03:49→13:42)
[2022-09-07] MEDS ORDERED: LORazepam 2 mg/ml vial IV ONE ×3 (04:00→07:35)
[2022-09-07 07:38] LABS: APTT 34 SECONDS (22-32); BASOPHILS % (AUTO) 0 % (0-1); D-DIMER 0.74 MG/L FEU (0-0.50); EOSINOPHILS % (AUTO) 0 % (0-6); HEMATOCRIT 35.8 % (35.0-45.0); LYMPHOCYTES # (AUTO) 0.4 X10'3 (1.1-4.8); LYMPHOCYTES % (AUTO) 6.1 % (21-51); MEAN CORPUSCULAR HEMOGLOBIN 26.2 PG (27.0-31.0); MEAN CORPUSCULAR HGB CONC 30.6 g/dL (33.0-36.5); MEAN CORPUSCULAR VOLUME 85.6 FL (78-98); MONOCYTES # (AUTO) 0.1 X10'3 (0-0.9); MONOCYTES % (AUTO) 0.9 % (2-12); NEUTROPHILS # (AUTO) 6.9 X10'3 (1.8-7.7); PLATELET COUNT 198 X10'3 (140-440); RED BLOOD COUNT 4.19 X10'6 (4.20-5.60); RED CELL DISTRIBUTION WIDTH 20.7 % (11.5-14.5); WHITE BLOOD COUNT 7.4 X10'3 (4.5-11.0)
[2022-09-07 07:57] LABS: ALANINE AMINOTRANSFERASE 10 U/L (12-78); ALBUMIN 2.7 G/DL (3.4-5.0); ALBUMIN/GLOBULIN RATIO 0.6 (1.1-1.5); ALKALINE PHOSPHATASE 140 IU/L (46-116); ANION GAP 8 (8-16); ASPARTATE AMINO TRANSFERASE 25 U/L (10-37); BILIRUBIN,TOTAL 0.7 MG/DL (0.1-1.0); BLOOD UREA NITROGEN 7 MG/DL (7-18); BUN/CREATININE RATIO 15.6 (10.0-20.0); CALCIUM 8.1 MG/DL (8.5-10.1); CHLORIDE 94 MMOL/L (99-107); CHOL/HDL RATIO 1.9 (0.00-4.99); CHOLESTEROL 117 MG/DL (0-200); CREATININE 0.45 MG/DL (0.40-0.90); GLUCOSE 109 MG/DL (70-104); HDL CHOLESTEROL 63 MG/DL (35-60); LDL CHOLESTEROL 45 MG/DL (50-100); POTASSIUM 3.5 MMOL/L (3.5-5.1); SODIUM 137 MMOL/L (135-145); TOTAL CARBON DIOXIDE 34.8 MMOL/L (24-32); TOTAL PROTEIN 7.4 G/DL (6.4-8.2); TRIGLYCERIDES 53 MG/DL (20-135); eGFR > 90 ML/MIN
[2022-09-07] MEDS: azithromycin/NS 500mg/250ml 250 ML IV SCH (08:00)
[2022-09-07 08:51] LABS: HYPOCHROMASIA 1+; PLATELET ESTIMATE NORMAL; POLYCHROMASIA FEW
[2022-09-07 08:52] LABS: ANISOCYTOSIS 3+; STOMATOCYTES 2+; TEAR DROP CELLS FEW
[2022-09-07] MEDS: methylPREDNISolone sod succ 125mg/2ml vial IV SCH ×2 (09:02→21:34)
[2022-09-07] MEDS: furosemide 10 MG/1 ML 10ml inj IV SCH (09:03)
[2022-09-07] MEDS: CefTRIAXone/D5W-Rocephin 1gm 50 ML IV SCH (09:03)
[2022-09-07] MEDS: sertraline 50mg tablet PO SCH (09:09)
[2022-09-07] MEDS: levoTHYROXINE 25mcg tablet PO SCH (09:09)
[2022-09-07] MEDS: aspirin 81mg, enteric-coated 1 TAB TABLET.DR PO SCH (09:10)
[2022-09-07] MEDS: docusate sod 100mg capsule PO SCH ×2 (09:10→20:00)
[2022-09-07] MEDS: folic acid 1mg tablet PO SCH (09:10)
[2022-09-07] MEDS: anastrozole 1 MG tablet PO SCH (09:11)
[2022-09-07] MEDS: morphine 2 MG/ML inj. syringe IV PRN ×4 (09:22→22:38)
--- NOTE | 2022-09-07 10:21 | NUR ---
REPORT GIVEN TO GUILLERMO FENG GOING TO BED 3020A.
--- NOTE | 2022-09-07 10:21 | NUR ---
Patient in room ED 5. I have received report from Fela RN and had the opportunity to ask questions and assume patient care.
--- NOTE | 2022-09-07 10:37 | NUR ---
Tonya Boggs- I need help with Transport from ED 5 to 3020. Pt on BIPAP. At your convenience. -Val EXT [phone]
--- NOTE | 2022-09-07 10:59 | NUR ---
Flakita, Tonya [phone] I need the heated component to BiPAP turned down. Pt complaining. -Val EXT [phone]
[2022-09-07 12:00] VITALS: BP 102/60
[2022-09-07 17:00] VITALS: BP 110/62
[2022-09-07] MEDS: rivaroxaban 20mg tablet PO SCH (17:00)
--- NOTE | 2022-09-07 17:06 | NUR ---
No BM to send for sample at this time. Will continue to monitor.
[2022-09-07 18:00] VITALS: BP 109/67
--- NOTE | 2022-09-07 18:00 | NUR ---
Patient in room PCU 3020. I have received report from Val DOWNS and had the opportunity to ask questions and assume patient care.
--- NOTE | 2022-09-07 18:33 | NUR ---
Problems reprioritized. Patient report given, questions answered & plan of care reviewed with Alison NAYAK.
[2022-09-07] MEDS: HYDROcodone/acetaminophen 5mg/325mg tablet PO PRN (21:35)
[2022-09-07 22:00] VITALS: BP 106/60
[2022-09-08] VITALS (9 sets, daily range): BP systolic 104–131; BP diastolic 67–88
[2022-09-08] MEDS: diltiazem-NS 100mg/100ml 100 ML IV SCH (04:14)
[2022-09-08] MEDS: morphine 2 MG/ML inj. syringe IV PRN ×2 (04:22→13:03)
[2022-09-08] MEDS: ipratropium/albuterol 3ml nebule NEB PRN (06:56)
[2022-09-08 07:02] LABS: BASOPHILS % (AUTO) 0 % (0-1); EOSINOPHILS % (AUTO) 0 % (0-6); HEMATOCRIT 35.8 % (35.0-45.0); LYMPHOCYTES # (AUTO) 0.3 X10'3 (1.1-4.8); LYMPHOCYTES % (AUTO) 5.5 % (21-51); MEAN CORPUSCULAR HEMOGLOBIN 26.5 PG (27.0-31.0); MEAN CORPUSCULAR HGB CONC 30.8 g/dL (33.0-36.5); MEAN CORPUSCULAR VOLUME 85.9 FL (78-98); MEAN PLATELET VOLUME 8.8 FL (7.4-10.4); MONOCYTES # (AUTO) 0.1 X10'3 (0-0.9); MONOCYTES % (AUTO) 1.3 % (2-12); NEUTROPHILS # (AUTO) 5.9 X10'3 (1.8-7.7); NEUTROPHILS % (AUTO) 93.2 % (42-75); PLATELET COUNT 250 X10'3 (140-440); RED BLOOD COUNT 4.17 X10'6 (4.20-5.60); RED CELL DISTRIBUTION WIDTH 20.5 % (11.5-14.5); WHITE BLOOD COUNT 6.4 X10'3 (4.5-11.0)
[2022-09-08 07:03] LABS: ALANINE AMINOTRANSFERASE 15 U/L (12-78); ALBUMIN 2.9 G/DL (3.4-5.0); ALBUMIN/GLOBULIN RATIO 0.6 (1.1-1.5); ALKALINE PHOSPHATASE 124 IU/L (46-116); ANION GAP 5 (8-16); ASPARTATE AMINO TRANSFERASE 19 U/L (10-37); BILIRUBIN,TOTAL 0.5 MG/DL (0.1-1.0); BLOOD UREA NITROGEN 21 MG/DL (7-18); BUN/CREATININE RATIO 32.3 (10.0-20.0); CALCIUM 9.1 MG/DL (8.5-10.1); CHLORIDE 94 MMOL/L (99-107); CREATININE 0.65 MG/DL (0.40-0.90); GLUCOSE 128 MG/DL (70-104); POTASSIUM 3.9 MMOL/L (3.5-5.1); SODIUM 137 MMOL/L (135-145); TOTAL CARBON DIOXIDE 37.7 MMOL/L (24-32); TOTAL PROTEIN 7.5 G/DL (6.4-8.2); eGFR > 90 ML/MIN
--- NOTE | 2022-09-08 07:06 | NUR ---
Problems reprioritized. Patient report given, questions answered & plan of care reviewed with Anika DOWNS.
--- NOTE | 2022-09-08 07:26 | NUR ---
paged Dr. Rutledge for room 3020 Tonya Boggs because she is getting Cardizem 10 ml/hr but there is no order for that. eMAR still says 5 ml/hr. requested for the change of order
[2022-09-08] MEDS: furosemide 10 MG/1 ML 10ml inj IV SCH (07:36)
[2022-09-08] MEDS: levoTHYROXINE 25mcg tablet PO SCH (07:36)
[2022-09-08] MEDS: methylPREDNISolone sod succ 125mg/2ml vial IV SCH ×2 (07:37→22:03)
[2022-09-08] MEDS: CefTRIAXone/D5W-Rocephin 1gm 50 ML IV SCH (07:37)
[2022-09-08] MEDS: azithromycin/NS 500mg/250ml 250 ML IV SCH (07:37)
[2022-09-08] MEDS: anastrozole 1 MG tablet PO SCH (07:39)
[2022-09-08] MEDS: docusate sod 100mg capsule PO SCH ×2 (07:40→22:02)
[2022-09-08] MEDS: sertraline 50mg tablet PO SCH (07:40)
[2022-09-08] MEDS: aspirin 81mg, enteric-coated 1 TAB TABLET.DR PO SCH (07:40)
[2022-09-08] MEDS: folic acid 1mg tablet PO SCH (07:40)
[2022-09-08] MEDS: HYDROcodone/acetaminophen 5mg/325mg tablet PO PRN ×2 (07:41→19:27)
--- NOTE | 2022-09-08 13:23 | NUR ---
Page Sent promotional table spacer PAGER ID: [phone] MESSAGE: [phone]. Patient states she is very anxious and is requesting medication to help her with her anxiety. John @[phone] (117 character message out of a maximum of 240) CLOSE [X] SEND ANOTHER PAGE Thank you for visiting [facility]
[2022-09-08] MEDS ORDERED: ALPRAZolam 0.25mg tablet PO ONE (13:25)
--- NOTE | 2022-09-08 13:28 | NUR ---
Dr. Rutledge gave me a one time order for xanax 0.25 mg PO for report of anxiety from patient.
--- NOTE | 2022-09-08 15:33 | NUR ---
PRESSURE ULCER EDUCATION: DEFINITION: A pressure ulcer is an area of skin that breaks down when you stay in one position too long. The constant pressure against the skin reduces the blood flow to that area and the affected tissue dies. CAUSES: "Being bedridden or in a wheelchair "Fragile skin "Having a chronic condition, such as diabetes or vascular disease "Inability to move certain parts of your body without assistance "Older age "Incontinence of urine or stool SYMPTOMS: "A reddened area that DOES NOT turn white when pressed on - this can be the beginning of a pressure ulcer "A blister, deep sore or a crater - these can be advanced pressure ulcers FIRST AID: "Relieve the pressure on this area "Keep the area clean and dry "Call your primary doctor if you see any of the above symptoms "DO NOT massage the area "DO NOT use a donut shaped or ring shaped pillow- these actually interfere with the blood flow and cause complications PREVENTION: "Check for pressure ulcers everyday "Change position at least every two hours to relieve pressure "Use items that help relieve pressure- pillows, sheepskin, foam padding, and powders. "Keep skin clean and dry "Eat healthy well balanced meals "Exercise daily IF YOU SEE ANY OF THESE SYMPTOMS WHILE IN THE HOSPITAL - TELL YOUR NURSE IMMEDIATELY. IF YOU SEE ANY OF THESE SYMPTOMS WHILE AT HOME OR HAVE ANY QUESTIONS OR CONCERNS ABOUT PRESSURE ULCERS - CALL YOUR PRIMARY DOCTOR IMMEDIATELY. Addendum: 09/08/22 at 1533 by Donna King RN Amended: Links added.
[2022-09-08] MEDS: rivaroxaban 20mg tablet PO SCH (16:59)
--- NOTE | 2022-09-08 18:11 | NUR ---
Problems reprioritized. Patient report given, questions answered & plan of care reviewed with Alison DOWNS.
--- NOTE | 2022-09-08 18:30 | NUR ---
Patient in room PCU 3020. I have received report from Anika DOWNS and had the opportunity to ask questions and assume patient care.
[2022-09-08] MEDS: normal saline 1000ml 1,000 ML IV SCH (23:45)
[2022-09-09] MEDS: morphine 2 MG/ML inj. syringe IV PRN ×5 (00:26→22:46)
[2022-09-09 02:00] VITALS: BP 114/78
[2022-09-09] MEDS: HYDROcodone/acetaminophen 5mg/325mg tablet PO PRN ×4 (04:48→19:37)
--- NOTE | 2022-09-09 06:14 | NUR ---
Problems reprioritized. Patient report given, questions answered & plan of care reviewed with Dona DOWNS.
--- NOTE | 2022-09-09 06:37 | NUR ---
Patient in room PCU 3020. I have received report from Alison DOWNS and had the opportunity to ask questions and assume patient care.
--- NOTE | 2022-09-09 06:42 | NUR ---
Patient in room PCU 3020. I have received report from YARELI Rosas and had the opportunity to ask questions and assume patient care. I am orienting with YARELI Carcamo.
[2022-09-09 06:58] VITALS: BP 125/80
[2022-09-09 07:44] LABS: BASOPHILS % (AUTO) 0 % (0-1); EOSINOPHILS % (AUTO) 0 % (0-6); HEMATOCRIT 35.1 % (35.0-45.0); HEMOGLOBIN 10.8 g/dl (12.0-16.0); LYMPHOCYTES # (AUTO) 0.3 X10'3 (1.1-4.8); LYMPHOCYTES % (AUTO) 4.2 % (21-51); MEAN CORPUSCULAR HEMOGLOBIN 26.9 PG (27.0-31.0); MEAN CORPUSCULAR HGB CONC 30.9 g/dL (33.0-36.5); MEAN CORPUSCULAR VOLUME 87.1 FL (78-98); MEAN PLATELET VOLUME 8.7 FL (7.4-10.4); MONOCYTES # (AUTO) 0.2 X10'3 (0-0.9); MONOCYTES % (AUTO) 2.3 % (2-12); NEUTROPHILS # (AUTO) 6.3 X10'3 (1.8-7.7); NEUTROPHILS % (AUTO) 93.5 % (42-75); PLATELET COUNT 254 X10'3 (140-440); RED BLOOD COUNT 4.02 X10'6 (4.20-5.60); RED CELL DISTRIBUTION WIDTH 20.2 % (11.5-14.5); WHITE BLOOD COUNT 6.8 X10'3 (4.5-11.0)
[2022-09-09] MEDS: anastrozole 1 MG tablet PO SCH (07:53)
[2022-09-09] MEDS: azithromycin/NS 500mg/250ml 250 ML IV SCH (07:54)
[2022-09-09] MEDS: sertraline 50mg tablet PO SCH (07:56)
[2022-09-09] MEDS: levoTHYROXINE 25mcg tablet PO SCH (07:56)
[2022-09-09] MEDS: folic acid 1mg tablet PO SCH (07:56)
[2022-09-09] MEDS: aspirin 81mg, enteric-coated 1 TAB TABLET.DR PO SCH (07:56)
[2022-09-09] MEDS: methylPREDNISolone sod succ 125mg/2ml vial IV SCH (07:57)
[2022-09-09] MEDS: furosemide 10 MG/1 ML 10ml inj IV SCH (07:59)
[2022-09-09] MEDS: docusate sod 100mg capsule PO SCH ×2 (08:00→19:37)
[2022-09-09 08:22] LABS: ALANINE AMINOTRANSFERASE 14 U/L (12-78); ALBUMIN 2.8 G/DL (3.4-5.0); ALBUMIN/GLOBULIN RATIO 0.7 (1.1-1.5); ALKALINE PHOSPHATASE 104 IU/L (46-116); ANION GAP 3 (8-16); ASPARTATE AMINO TRANSFERASE 16 U/L (10-37); BILIRUBIN,TOTAL 0.4 MG/DL (0.1-1.0); BLOOD UREA NITROGEN 24 MG/DL (7-18); BUN/CREATININE RATIO 36.4 (10.0-20.0); CHLORIDE 96 MMOL/L (99-107); CREATININE 0.66 MG/DL (0.40-0.90); GLUCOSE 154 MG/DL (70-104); POTASSIUM 4.1 MMOL/L (3.5-5.1); SODIUM 138 MMOL/L (135-145); TOTAL CARBON DIOXIDE 39.5 MMOL/L (24-32); TOTAL PROTEIN 7.1 G/DL (6.4-8.2); eGFR > 90 ML/MIN
[2022-09-09] MEDS: ipratropium/albuterol 3ml nebule NEB PRN (09:06)
[2022-09-09] MEDS ORDERED: IPRA3AMP9 NEB (09:59)
[2022-09-09] MEDS ORDERED: ASPI-1071 PO (09:59)
[2022-09-09] MEDS: CefTRIAXone/D5W-Rocephin 1gm 50 ML IV SCH (10:11)
[2022-09-09 11:00] VITALS: BP 109/66
[2022-09-09] MEDS: diltiazem CD 180mg cap (once-daily) PO SCH (12:56)
--- NOTE | 2022-09-09 13:49 | NUR ---
Pt got pt up to bedside wheelchair where she sat for approx. 1/2 hour. Pt requested to go back to bed when I entered room which I helped her do. Noted that pt able to stand with walker at bedside for approx 2 minutes with no signs of distress and able to pivot to bed very easily with standby assist. Will advise MD and request to D/C Romero Catheter as she is able tolerate standing without distress. BP and HR remain stable.
--- NOTE | 2022-09-09 13:50 | NUR ---
PAGER ID: [phone] MESSAGE: [phone], Boggs Tonya. Pt is complaining of burning when she urinates. She has a palmer. For prolonged immobilization. She can get up and use the commode. Can I DC the palmer? Dona [facility] 0900.
[2022-09-09] MEDS ORDERED: diltiazem 30mg tablet PO SCH (14:00)
--- NOTE | 2022-09-09 14:49 | NUR ---
Called Audrey at [facility] and advised pt has open sores on both Left and Right buttock and extremely excoriated johny area that appears to be yeast infection. She advised that she will come in tomorrow to reassess Pt. She also asked me to contact MD to request orders for johny area yeast overgrowth, which I will do.
[2022-09-09] MEDS: rivaroxaban 20mg tablet PO SCH (17:08)
--- NOTE | 2022-09-09 17:52 | NUR ---
Sent page to Hospitalist requesting to reduce or discontinue continuous IV fluids (NS 100mL/hr) as Pt BP elevated, pt eating and drinking and BUN CR normal. Addendum: 09/09/22 at 1757 by Richie Ratliff RN Charrted this entry on wrong patient. Disregard this entry. Wrong Patient.
[2022-09-09 18:00] VITALS: BP 127/82
--- NOTE | 2022-09-09 18:40 | NUR ---
Problems reprioritized. Patient report given, questions answered & plan of care reviewed with Juan CASTELLON, patient stable at transfer of care.
[2022-09-09] MEDS: NYSTATIN CREAM - 30GM TUBE TP SCH (21:23)
[2022-09-09] MEDS: methylPREDNISolone sod succ/PF 40mg inj. IV SCH (22:45)
[2022-09-10] MEDS: HYDROcodone/acetaminophen 5mg/325mg tablet PO PRN ×5 (00:08→20:09)
[2022-09-10 02:00] VITALS: BP 123/60
[2022-09-10] MEDS: morphine 2 MG/ML inj. syringe IV PRN ×3 (03:43→13:47)
--- NOTE | 2022-09-10 07:09 | NUR ---
Patient in room PCU 3020. I have received report from Juan and had the opportunity to ask questions and assume patient care.
[2022-09-10 07:10] VITALS: BP 145/93
[2022-09-10] MEDS: levoTHYROXINE 25mcg tablet PO SCH (07:26)
[2022-09-10 07:48] LABS: BASOPHILS % (AUTO) 0 % (0-1); EOSINOPHILS % (AUTO) 0 % (0-6); HEMATOCRIT 37.3 % (35.0-45.0); HEMOGLOBIN 11.4 g/dl (12.0-16.0); LYMPHOCYTES # (AUTO) 0.3 X10'3 (1.1-4.8); LYMPHOCYTES % (AUTO) 3.5 % (21-51); MEAN CORPUSCULAR HEMOGLOBIN 26.5 PG (27.0-31.0); MEAN CORPUSCULAR HGB CONC 30.6 g/dL (33.0-36.5); MEAN CORPUSCULAR VOLUME 86.7 FL (78-98); MEAN PLATELET VOLUME 8.4 FL (7.4-10.4); MONOCYTES # (AUTO) 0.2 X10'3 (0-0.9); MONOCYTES % (AUTO) 2.1 % (2-12); NEUTROPHILS # (AUTO) 7.5 X10'3 (1.8-7.7); NEUTROPHILS % (AUTO) 94.4 % (42-75); PLATELET COUNT 237 X10'3 (140-440); RED CELL DISTRIBUTION WIDTH 19.2 % (11.5-14.5)
[2022-09-10] MEDS: docusate sod 100mg capsule PO SCH ×2 (08:00→19:19)
[2022-09-10] MEDS: NYSTATIN CREAM - 30GM TUBE TP SCH ×2 (08:15→19:23)
[2022-09-10] MEDS: diltiazem CD 180mg cap (once-daily) PO SCH (08:15)
[2022-09-10] MEDS: methylPREDNISolone sod succ/PF 40mg inj. IV SCH ×2 (08:15→19:22)
[2022-09-10] MEDS: anastrozole 1 MG tablet PO SCH (08:16)
[2022-09-10] MEDS: folic acid 1mg tablet PO SCH (08:17)
[2022-09-10] MEDS: CefTRIAXone/D5W-Rocephin 1gm 50 ML IV SCH (08:17)
[2022-09-10] MEDS: aspirin 81mg, enteric-coated 1 TAB TABLET.DR PO SCH (08:17)
[2022-09-10] MEDS: sertraline 50mg tablet PO SCH (08:17)
[2022-09-10] MEDS: furosemide 10 MG/1 ML 10ml inj IV SCH (08:41)
[2022-09-10 08:50] LABS: ALANINE AMINOTRANSFERASE 16 U/L (12-78); ALBUMIN 2.9 G/DL (3.4-5.0); ALBUMIN/GLOBULIN RATIO 0.7 (1.1-1.5); ALKALINE PHOSPHATASE 96 IU/L (46-116); ANION GAP 1 (8-16); ASPARTATE AMINO TRANSFERASE 16 U/L (10-37); BILIRUBIN,TOTAL 0.3 MG/DL (0.1-1.0); BLOOD UREA NITROGEN 23 MG/DL (7-18); BUN/CREATININE RATIO 41.8 (10.0-20.0); CHLORIDE 95 MMOL/L (99-107); CREATININE 0.55 MG/DL (0.40-0.90); GLUCOSE 144 MG/DL (70-104); POTASSIUM 4.3 MMOL/L (3.5-5.1); SODIUM 136 MMOL/L (135-145); TOTAL CARBON DIOXIDE 39.9 MMOL/L (24-32); TOTAL PROTEIN 7.1 G/DL (6.4-8.2); eGFR > 90 ML/MIN
[2022-09-10] MEDS ORDERED: LIDOcaine 1% 30ml preserv. free vial ONE ×2 (09:03→13:12)
[2022-09-10] MEDS: azithromycin/NS 500mg/250ml 250 ML IV SCH (09:21)
--- NOTE | 2022-09-10 09:59 | NUR ---
At approx 0830, discontinued Romero Catheter d/t 1. Pt complaint of pain in periarea 2. Leaking 3. Katherine colored urine.
--- NOTE | 2022-09-10 10:01 | NUR ---
At 0935, PT refused by patient. Explained to patient the importance of working with physical therapy daily, noting that she had refused PT the last few days. Pt stated that she was "going thru too much right now" and was refusing in spite of Nursing and PT request.
--- NOTE | 2022-09-10 10:03 | NUR ---
At 0850, Tele advised Pt HR had jumped to 130/min. Continued to monitor and HR had gone back down to between 90 and 110 by 0915 and at 0938 she was Sinus Tachycardia at rate 108.
--- NOTE | 2022-09-10 13:02 | NUR ---
During Vital Signs noted pt SPO2 at 88% on 4L/NC. Had pt deep breath and cough and sats went up to 94% SP02. Gave Pt Incentive Spirometer and Flutter Valve and gave education on use and importance of using regularly.
[2022-09-10 13:09] VITALS: BP 147/100
[2022-09-10 15:31] VITALS: BP 142/78
--- NOTE | 2022-09-10 15:50 | NUR ---
Placed pt back in bed from wheelchair at bedside. Replaced Urinary Wic.
--- NOTE | 2022-09-10 17:11 | NUR ---
PAGER ID: [phone] MESSAGE: [phone], Flakita Castaneda. Pt has been getting morphine q4hrs for chronic pain and air hunger relief. She says she is starting to see things. Can we get the morphine discontinued and push the norcos to q6? Dona U 4162.
[2022-09-10] MEDS: rivaroxaban 20mg tablet PO SCH (17:50)
--- NOTE | 2022-09-10 18:35 | NUR ---
Problems reprioritized. Patient report given, questions answered & plan of care reviewed with Samuel DOWNS, patient stable at transfer of care.
[2022-09-10 19:17] VITALS: BP 144/86
[2022-09-10 22:29] VITALS: BP 139/93
[2022-09-11] MEDS: HYDROcodone/acetaminophen 5mg/325mg tablet PO PRN ×6 (00:55→23:33)
[2022-09-11 03:00] VITALS: BP 148/81
[2022-09-11] MEDS: ipratropium/albuterol 3ml nebule NEB PRN (04:11)
[2022-09-11 07:02] LABS: BASOPHILS % (AUTO) 0.2 % (0-1); EOSINOPHILS % (AUTO) 0 % (0-6); HEMATOCRIT 38.2 % (35.0-45.0); HEMOGLOBIN 11.4 g/dl (12.0-16.0); LYMPHOCYTES # (AUTO) 0.3 X10'3 (1.1-4.8); LYMPHOCYTES % (AUTO) 4.3 % (21-51); MEAN CORPUSCULAR HEMOGLOBIN 26.2 PG (27.0-31.0); MEAN CORPUSCULAR HGB CONC 29.9 g/dL (33.0-36.5); MEAN CORPUSCULAR VOLUME 87.5 FL (78-98); MEAN PLATELET VOLUME 8.6 FL (7.4-10.4); MONOCYTES # (AUTO) 0.2 X10'3 (0-0.9); NEUTROPHILS # (AUTO) 5.6 X10'3 (1.8-7.7); NEUTROPHILS % (AUTO) 91.5 % (42-75); PLATELET COUNT 215 X10'3 (140-440); RED BLOOD COUNT 4.37 X10'6 (4.20-5.60); RED CELL DISTRIBUTION WIDTH 18.5 % (11.5-14.5); WHITE BLOOD COUNT 6.1 X10'3 (4.5-11.0)
[2022-09-11 07:21] LABS: ALANINE AMINOTRANSFERASE 23 U/L (12-78); ALBUMIN 2.7 G/DL (3.4-5.0); ALBUMIN/GLOBULIN RATIO 0.7 (1.1-1.5); ALKALINE PHOSPHATASE 89 IU/L (46-116); ANION GAP 0 (8-16); ASPARTATE AMINO TRANSFERASE 21 U/L (10-37); BILIRUBIN,TOTAL 0.3 MG/DL (0.1-1.0); BLOOD UREA NITROGEN 21 MG/DL (7-18); BUN/CREATININE RATIO 47.7 (10.0-20.0); CALCIUM 8.7 MG/DL (8.5-10.1); CHLORIDE 97 MMOL/L (99-107); CREATININE 0.44 MG/DL (0.40-0.90); GLUCOSE 144 MG/DL (70-104); SODIUM 137 MMOL/L (135-145); TOTAL PROTEIN 6.7 G/DL (6.4-8.2); eGFR > 90 ML/MIN
[2022-09-11 07:25] LABS: POTASSIUM 4.8 MMOL/L (3.5-5.1)
--- NOTE | 2022-09-11 07:40 | NUR ---
PAGER ID: [phone] MESSAGE: [phone], Flakita Castaneda. Pt has a critical CO2 of 40.0. [facility] 1702
--- NOTE | 2022-09-11 07:58 | NUR ---
Patient in room PCU 3020. I have received report from Samuel (RN) and had the opportunity to ask questions and assume patient care.
[2022-09-11 08:02] VITALS: BP 122/72
[2022-09-11] MEDS: CefTRIAXone/D5W-Rocephin 1gm 50 ML IV SCH (08:08)
[2022-09-11] MEDS: levoTHYROXINE 25mcg tablet PO SCH (08:08)
[2022-09-11 08:14] LABS: ANISOCYTOSIS 2+; PLATELET ESTIMATE NORMAL; SPHEROCYTES 1+; STOMATOCYTES 1+
[2022-09-11] MEDS: ipratropium/albuterol 3ml nebule NEB SCH ×3 (08:38→21:01)
[2022-09-11 09:07] LABS: ABG BASE EXCESS 16.1 mmol/L (-2.0-2.0); ABG HCO3 46.3 mmol/L (22.0-26.0); ABG OXYGEN SATURATION 96.2 % (94-97); ABG PCO2 (T) 89.3 mmHg (32.0-45.0); ABG PO2 (T) 82.1 mmHg (75.0-100.0); ALLEN'S TEST POSITIVE; FCOHb 1.2 % (0.0-3.9); FLOW 5 L/min; FMetHb 0.2 % (0.0-1.5); FO2Hb 94.9 % (94-97); PATIENT TEMPERATURE 36.6; TOTAL HEMOGLOBIN 12.6 G/dl (12.0-16.0)
--- NOTE | 2022-09-11 09:19 | NUR ---
PAGER ID: [phone] MESSAGE: [phone] Flakita Dollody. Pts ABG pH 7.32, pCO2 90.9, pO2 84.3, HCO3 46.3. She is going back on bipap. Dona BARKLEY
[2022-09-11] MEDS: methylPREDNISolone sod succ/PF 40mg inj. IV SCH ×2 (09:20→19:12)
[2022-09-11] MEDS: diltiazem CD 180mg cap (once-daily) PO SCH (09:24)
[2022-09-11] MEDS: anastrozole 1 MG tablet PO SCH (09:24)
[2022-09-11] MEDS: aspirin 81mg, enteric-coated 1 TAB TABLET.DR PO SCH (09:24)
[2022-09-11] MEDS: azithromycin/NS 500mg/250ml 250 ML IV SCH (09:24)
[2022-09-11] MEDS: furosemide 10 MG/1 ML 10ml inj IV SCH (09:24)
[2022-09-11] MEDS: docusate sod 100mg capsule PO SCH ×2 (09:25→19:03)
[2022-09-11] MEDS: folic acid 1mg tablet PO SCH (09:25)
[2022-09-11] MEDS: NYSTATIN CREAM - 30GM TUBE TP SCH ×2 (09:26→19:13)
[2022-09-11] MEDS: sertraline 50mg tablet PO SCH (09:26)
--- NOTE | 2022-09-11 09:47 | NUR ---
Pt placed on Bipap at approximately 0910. Pt having more difficulty than normal concentrating and seemed mildly confused this morning prior to being placed on Bipap. Pt acknowledged this mental shift from baseline and willingly accepted Bipap understanding her C02 level was high and how that related to her increasing confusion.
[2022-09-11 11:57] VITALS: BP 148/81
--- NOTE | 2022-09-11 14:48 | NUR ---
Took pt off Bipap at 1445 and placed back on 3L/NC
[2022-09-11 15:12] VITALS: BP 160/96
[2022-09-11] MEDS: rivaroxaban 20mg tablet PO SCH (17:38)
[2022-09-11 18:58] VITALS: BP 149/79
[2022-09-11 22:58] VITALS: BP 158/85
[2022-09-12 01:41] VITALS: BP 159/89
[2022-09-12] MEDS: ipratropium/albuterol 3ml nebule NEB SCH ×4 (03:05→19:18)
[2022-09-12] MEDS: HYDROcodone/acetaminophen 5mg/325mg tablet PO PRN ×5 (03:29→22:01)
[2022-09-12] MEDS ORDERED: metoprolol tartrate 1mg/ml inj IV ONE (05:50)
--- NOTE | 2022-09-12 06:56 | NUR ---
Patient in room U 3020. I have received report from Samuel DOWNS and had the opportunity to ask questions and assume patient care. Pt is sitting high fowlers inbed and is watching tv. Pt has c/o pain. Please see interventions. Pt on 3L NC, no s/s of distress. BLL, call light within reach, frequentlty used items in reach, frequent rounding, portable track line marker socks on. Will continue to monitor.
[2022-09-12 07:09] VITALS: BP 166/92
[2022-09-12] MEDS: sertraline 50mg tablet PO SCH (07:29)
[2022-09-12] MEDS: aspirin 81mg, enteric-coated 1 TAB TABLET.DR PO SCH (07:29)
[2022-09-12] MEDS: docusate sod 100mg capsule PO SCH ×2 (07:29→20:00)
[2022-09-12] MEDS: levoTHYROXINE 25mcg tablet PO SCH (07:29)
[2022-09-12] MEDS: diltiazem CD 180mg cap (once-daily) PO SCH (07:29)
[2022-09-12] MEDS: folic acid 1mg tablet PO SCH (07:29)
[2022-09-12] MEDS: azithromycin 250mg tablet PO SCH (07:30)
[2022-09-12] MEDS: NYSTATIN CREAM - 30GM TUBE TP SCH ×2 (07:32→20:00)
[2022-09-12] MEDS: methylPREDNISolone sod succ/PF 40mg inj. IV SCH ×2 (07:32→19:33)
[2022-09-12] MEDS: furosemide 10 MG/1 ML 10ml inj IV SCH (07:32)
[2022-09-12] MEDS: CefTRIAXone/D5W-Rocephin 1gm 50 ML IV SCH (07:45)
[2022-09-12] MEDS: anastrozole 1 MG tablet PO SCH (07:45)
[2022-09-12] MEDS ORDERED: diltiazem SR 60mg capsule (twice daily) PO ONE (08:10)
[2022-09-12 09:19] LABS: BASOPHILS % (AUTO) 0.1 % (0-1); EOSINOPHILS % (AUTO) 0 % (0-6); LYMPHOCYTES # (AUTO) 0.4 X10'3 (1.1-4.8); LYMPHOCYTES % (AUTO) 4.6 % (21-51); MEAN PLATELET VOLUME 8.7 FL (7.4-10.4); MONOCYTES # (AUTO) 0.5 X10'3 (0-0.9); NEUTROPHILS % (AUTO) 89.3 % (42-75); PLATELET COUNT 228 X10'3 (140-440); WHITE BLOOD COUNT 7.8 X10'3 (4.5-11.0)
[2022-09-12 09:36] LABS: HEMOGLOBIN 11.6 g/dl (12.0-16.0); RED BLOOD COUNT 4.57 X10'6 (4.20-5.60)
[2022-09-12 09:37] LABS: HEMATOCRIT 38.8 % (35.0-45.0); MEAN CORPUSCULAR HEMOGLOBIN 25.4 PG (27.0-31.0); MEAN CORPUSCULAR HGB CONC 29.8 g/dL (33.0-36.5); RED CELL DISTRIBUTION WIDTH 18.6 % (11.5-14.5)
[2022-09-12 09:40] LABS: ALANINE AMINOTRANSFERASE 49 U/L (12-78); ALBUMIN/GLOBULIN RATIO 0.8 (1.1-1.5); ALKALINE PHOSPHATASE 95 IU/L (46-116); ANION GAP -5 (8-16); ASPARTATE AMINO TRANSFERASE 27 U/L (10-37); BILIRUBIN,TOTAL 0.4 MG/DL (0.1-1.0); BLOOD UREA NITROGEN 16 MG/DL (7-18); CALCIUM 8.5 MG/DL (8.5-10.1); CHLORIDE 96 MMOL/L (99-107); GLUCOSE 159 MG/DL (70-104); POTASSIUM 3.9 MMOL/L (3.5-5.1); SODIUM 136 MMOL/L (135-145); TOTAL PROTEIN 6.9 G/DL (6.4-8.2); eGFR > 90 ML/MIN
[2022-09-12 09:48] LABS: TOTAL CARBON DIOXIDE 44.8 MMOL/L (24-32)
[2022-09-12 10:16] LABS: ANISOCYTOSIS 2+; PLATELET ESTIMATE NORMAL; TOTAL CELLS COUNTED 100
[2022-09-12 10:16] LABS: ABG HCO3 44.9 mmol/L (22.0-26.0); ABG OXYGEN SATURATION 96.3 % (94-97); ABG PCO2 (T) 68.2 mmHg (32.0-45.0); ABG PO2 (T) 80.8 mmHg (75.0-100.0); ALLEN'S TEST POSITIVE; FCOHb 1.2 % (0.0-3.9); FLOW 2 L/min; FMetHb 0.1 % (0.0-1.5); PATIENT TEMPERATURE 36.7; TOTAL HEMOGLOBIN 13.4 G/dl (12.0-16.0)
[2022-09-12 10:17] LABS: LARGE PLATELETS FEW
[2022-09-12 10:18] LABS: STOMATOCYTES 2+
[2022-09-12 10:19] LABS: SPHEROCYTES FEW
[2022-09-12 11:05] VITALS: BP 129/90
--- NOTE | 2022-09-12 13:23 | NUR ---
Initial: Pt admit for A.fib with RVR, COPD exacerbation, right pleural effusion, acute respiratory failure with hypoxia and hypercarbia, and type II NH. Currently on a heart healthy diet and eating poorly, documented with mostly 25% PO intake not meeting estimated nutrient needs. Noted pt constipated with LBM 09/06 per EMR. Pt receiving routine bowel care and with additional PRN bowel care available though it does not appear to be given per EMR. Recommend Ensure Enlive TID to optimize PO intake, to be sent pending physician approval in EMR. D/w dietary to send prunes and prune juice to assist with bowel regularity as constipation can impact appetite and subsequently PO intake. Pt would likely benefit from receiving PRN bowel care. Will continue to follow closely and monitor need for further nutrition intervention. Recommendations: 1) Liberalize to regular diet in view of poor PO intake 2) Ensure Enlive TID, pending physician approval in EMR 3) Consider routine MVM with Iron and Vitamin B12 supplementation d/t h/o gastric bypass 4) Routine bowel care; utilize PRN bowel care given constipation 5) Scaled weight this admit; subsequent weekly scaled weights Addendum: 09/12/22 at [address] Amended: Links added.
[2022-09-12 15:00] VITALS: BP 160/90
[2022-09-12] MEDS: magnesium hydroxide 30ml (MOM) UD suspension PO PRN (15:25)
[2022-09-12] MEDS: rivaroxaban 20mg tablet PO SCH (17:25)
[2022-09-12] MEDS: lactose-reduced food (Ensure Enlive) - 237ml bottle PO SCH (18:00)
--- NOTE | 2022-09-12 18:17 | NUR ---
Problems reprioritized. Patient report given, questions answered & plan of care reviewed with Katherine RN.
[2022-09-12] MEDS ORDERED: hydrALAZINE 20mg/ml inj. IV PRN (18:45)
[2022-09-12] MEDS: ondansetron/PF 4mg/2ml inj IV PRN (19:33)
[2022-09-12 20:33] VITALS: BP 148/89
[2022-09-12] MEDS ORDERED: traMADol 50MG tablet PO ONE (20:50)
[2022-09-12] MEDS: guaiFENesin 200mg/20mg codeine phos 10ml UD oral syrup PO PRN (21:25)
--- NOTE | 2022-09-12 22:53 | NUR ---
Pt. is awake alert oriented c/o severe abd muscle pain due to frequent coughing. Peripheral SL intact, ate 25% of meal. State does not like Ensure drink. Purwick intact with large amt darshan clear urine. Notified MD of pt's unrelenting abd muscle pain. Ultram given as ordered along with cough med. Tolerated well no adverse effects after pain med given. Resting quietly tonight, no further complaints.
[2022-09-13] MEDS: ipratropium/albuterol 3ml nebule NEB SCH ×4 (02:00→20:08)
[2022-09-13 03:30] VITALS: BP 136/94
[2022-09-13] MEDS: HYDROcodone/acetaminophen 5mg/325mg tablet PO PRN ×5 (04:05→20:46)
[2022-09-13] MEDS: guaiFENesin 200mg/20mg codeine phos 10ml UD oral syrup PO PRN ×2 (04:06→19:01)
[2022-09-13] MEDS: ondansetron/PF 4mg/2ml inj IV PRN ×2 (04:06→20:46)
--- NOTE | 2022-09-13 06:25 | NUR ---
Patient in room U 3020. I have received report from Katherine RN and had the opportunity to ask questions and assume patient care. Pt is sitting up high fowlers in bed watching TV. Pt asking for pain medications; please see interventions/eMAR. Pt on 1L NC, no s/s of distress. BLL, call light within reach, frequently used items in reach, frequent rounding, intermission coordinator socks on. Will continue to monitor.
[2022-09-13 07:00] VITALS: BP 114/71
[2022-09-13] MEDS ORDERED: diltiazem CD 120mg capsule (once-daily) PO SCH (08:00)
[2022-09-13] MEDS: lactose-reduced food (Ensure Enlive) - 237ml bottle PO SCH ×3 (08:00→18:00)
[2022-09-13] MEDS: levoTHYROXINE 25mcg tablet PO SCH (08:09)
[2022-09-13] MEDS: aspirin 81mg, enteric-coated 1 TAB TABLET.DR PO SCH (08:10)
[2022-09-13] MEDS: folic acid 1mg tablet PO SCH (08:10)
[2022-09-13] MEDS: docusate sod 100mg capsule PO SCH ×2 (08:10→18:56)
[2022-09-13] MEDS: anastrozole 1 MG tablet PO SCH (08:10)
[2022-09-13] MEDS: sertraline 50mg tablet PO SCH (08:10)
[2022-09-13] MEDS: azithromycin 250mg tablet PO SCH (08:10)
[2022-09-13] MEDS: methylPREDNISolone sod succ/PF 40mg inj. IV SCH (08:10)
[2022-09-13] MEDS: furosemide 10 MG/1 ML 10ml inj IV SCH (08:14)
[2022-09-13] MEDS: NYSTATIN CREAM - 30GM TUBE TP SCH ×2 (08:18→19:04)
[2022-09-13] MEDS: CefTRIAXone/D5W-Rocephin 1gm 50 ML IV SCH (08:21)
[2022-09-13] MEDS: magnesium hydroxide 30ml (MOM) UD suspension PO PRN (08:22)
--- NOTE | 2022-09-13 08:23 | NUR ---
Pt c/o of ABD discomfort. Pt has not had LG BM simce the . MOM adminsitered @ 1500 with no result. Education provided on bowel care and use of medications. Pt declines MOM. States she dosnet want that. Will continue to monitor.
[2022-09-13] MEDS ORDERED: diltiazem CD 120mg capsule (once-daily) PO ONE (08:30)
[2022-09-13 10:08] LABS: BASOPHILS % (AUTO) 0.3 % (0-1); EOSINOPHILS % (AUTO) 0 % (0-6); HEMATOCRIT 44.1 % (35.0-45.0); HEMOGLOBIN 13.5 g/dl (12.0-16.0); LYMPHOCYTES # (AUTO) 0.3 X10'3 (1.1-4.8); LYMPHOCYTES % (AUTO) 2.6 % (21-51); MEAN CORPUSCULAR HEMOGLOBIN 26.1 PG (27.0-31.0); MEAN CORPUSCULAR HGB CONC 30.7 g/dL (33.0-36.5); MEAN CORPUSCULAR VOLUME 84.8 FL (78-98); MEAN PLATELET VOLUME 8.5 FL (7.4-10.4); MONOCYTES # (AUTO) 0.8 X10'3 (0-0.9); NEUTROPHILS # (AUTO) 11.9 X10'3 (1.8-7.7); NEUTROPHILS % (AUTO) 91.1 % (42-75); PLATELET COUNT 288 X10'3 (140-440); RED CELL DISTRIBUTION WIDTH 18.9 % (11.5-14.5)
[2022-09-13 10:53] LABS: LARGE PLATELETS FEW; PLATELET ESTIMATE NORMAL; POLYCHROMASIA FEW
[2022-09-13 10:54] LABS: ANISOCYTOSIS 2+; HYPOCHROMASIA 1+; STOMATOCYTES 2+; TEAR DROP CELLS FEW
[2022-09-13 11:00] VITALS: BP 150/90
[2022-09-13 11:01] LABS: ALANINE AMINOTRANSFERASE 51 U/L (12-78); ALBUMIN 3.3 G/DL (3.4-5.0); ALBUMIN/GLOBULIN RATIO 0.9 (1.1-1.5); ALKALINE PHOSPHATASE 104 IU/L (46-116); ANION GAP 1 (8-16); ASPARTATE AMINO TRANSFERASE 24 U/L (10-37); BILIRUBIN,TOTAL 0.6 MG/DL (0.1-1.0); BLOOD UREA NITROGEN 19 MG/DL (7-18); BUN/CREATININE RATIO 34.5 (10.0-20.0); CALCIUM 8.8 MG/DL (8.5-10.1); CHLORIDE 93 MMOL/L (99-107); CREATININE 0.55 MG/DL (0.40-0.90); GLUCOSE 148 MG/DL (70-104); POTASSIUM 4.2 MMOL/L (3.5-5.1); SODIUM 134 MMOL/L (135-145); TOTAL PROTEIN 7.1 G/DL (6.4-8.2); eGFR > 90 ML/MIN
[2022-09-13] MEDS ORDERED: LORazepam 1 MG tablet PO ONE (11:55)
[2022-09-13] MEDS ORDERED: iohexol 300mg/ml 100ml inj. ONE (13:51)
[2022-09-13] MEDS: traMADol 50MG tablet PO PRN (14:59)
[2022-09-13 15:28] VITALS: BP 130/82
[2022-09-13] MEDS: rivaroxaban 20mg tablet PO SCH (16:49)
[2022-09-13 18:00] VITALS: BP 130/76
--- NOTE | 2022-09-13 18:36 | NUR ---
Patient in room PCU 3020. I have received report from Katherine RN and had the opportunity to ask questions and assume patient care.
[2022-09-13] MEDS: LORazepam 1 MG tablet PO PRN (18:54)
[2022-09-13 22:00] VITALS: BP 131/84
--- NOTE | 2022-09-14 00:34 | NUR ---
Pt. is awake alert oriented requesting Ativan and still c/o upper abd pain 4 fingers on upper abd. Medicated with [place] and Zofran per request tolerated well. Refuses Colace states bowels are moving well. Monitor shows afib with short bursts of increasing rates to 130. Sats 91% on 1 L NC. Increased 02 to 3 L Humidified. Hr now 102 afib sats 94%.
[2022-09-14 02:00] VITALS: BP 132/68
[2022-09-14] MEDS: ipratropium/albuterol 3ml nebule NEB SCH ×4 (02:00→19:41)
[2022-09-14] MEDS: LORazepam 1 MG tablet PO PRN ×3 (04:15→21:14)
[2022-09-14] MEDS: ondansetron/PF 4mg/2ml inj IV PRN (04:16)
[2022-09-14] MEDS: HYDROcodone/acetaminophen 5mg/325mg tablet PO PRN ×4 (04:16→19:29)
[2022-09-14 06:32] LABS: BASOPHILS % (AUTO) 0.1 % (0-1); EOSINOPHILS % (AUTO) 0 % (0-6); HEMATOCRIT 42.7 % (35.0-45.0); HEMOGLOBIN 13.1 g/dl (12.0-16.0); LYMPHOCYTES # (AUTO) 0.6 X10'3 (1.1-4.8); LYMPHOCYTES % (AUTO) 3.7 % (21-51); MEAN CORPUSCULAR HEMOGLOBIN 26.1 PG (27.0-31.0); MEAN CORPUSCULAR HGB CONC 30.7 g/dL (33.0-36.5); MEAN CORPUSCULAR VOLUME 84.8 FL (78-98); MEAN PLATELET VOLUME 8.9 FL (7.4-10.4); MONOCYTES # (AUTO) 1.1 X10'3 (0-0.9); MONOCYTES % (AUTO) 6.4 % (2-12); NEUTROPHILS # (AUTO) 15.3 X10'3 (1.8-7.7); NEUTROPHILS % (AUTO) 89.8 % (42-75); PLATELET COUNT 289 X10'3 (140-440); RED BLOOD COUNT 5.04 X10'6 (4.20-5.60)
[2022-09-14 06:58] LABS: ANION GAP 1 (8-16); BILIRUBIN,TOTAL 0.5 MG/DL (0.1-1.0); BLOOD UREA NITROGEN 24 MG/DL (7-18); BUN/CREATININE RATIO 33.8 (10.0-20.0); CALCIUM 8.8 MG/DL (8.5-10.1); CHLORIDE 95 MMOL/L (99-107); CREATININE 0.71 MG/DL (0.40-0.90); GLUCOSE 129 MG/DL (70-104); POTASSIUM 4.1 MMOL/L (3.5-5.1); SODIUM 137 MMOL/L (135-145); eGFR 83 ML/MIN
[2022-09-14 06:59] LABS: ALANINE AMINOTRANSFERASE 50 U/L (12-78); ALBUMIN/GLOBULIN RATIO 0.8 (1.1-1.5); ALKALINE PHOSPHATASE 95 IU/L (46-116); ASPARTATE AMINO TRANSFERASE 21 U/L (10-37); TOTAL PROTEIN 6.7 G/DL (6.4-8.2)
[2022-09-14 07:00] VITALS: BP 116/78
[2022-09-14] MEDS: levoTHYROXINE 25mcg tablet PO SCH (07:45)
[2022-09-14] MEDS: sertraline 50mg tablet PO SCH (07:46)
[2022-09-14] MEDS: folic acid 1mg tablet PO SCH (07:46)
[2022-09-14] MEDS: predniSONE 20 mg tablet PO SCH (07:46)
[2022-09-14] MEDS: docusate sod 100mg capsule PO SCH ×2 (07:46→19:39)
[2022-09-14] MEDS: furosemide 10 MG/1 ML 10ml inj IV SCH (07:46)
[2022-09-14] MEDS: aspirin 81mg, enteric-coated 1 TAB TABLET.DR PO SCH (07:46)
[2022-09-14] MEDS: anastrozole 1 MG tablet PO SCH (07:47)
[2022-09-14] MEDS: diltiazem CD 120mg capsule (once-daily) PO SCH (07:47)
[2022-09-14] MEDS: NYSTATIN CREAM - 30GM TUBE TP SCH ×2 (07:48→19:39)
[2022-09-14 07:49] LABS: TOTAL CARBON DIOXIDE 40.6 MMOL/L (24-32)
[2022-09-14] MEDS: lactose-reduced food (Ensure Enlive) - 237ml bottle PO SCH ×3 (08:00→18:00)
[2022-09-14 11:00] VITALS: BP 116/67
[2022-09-14] MEDS ORDERED: amiodarone 150mg/dext, iso-os 100 ML IV ONE (11:25)
[2022-09-14] MEDS ORDERED: amiodarone/D5 360MG/200ML BAG 200 ML IV SCH ×3 (11:25→17:30)
[2022-09-14 15:00] VITALS: BP 105/70
[2022-09-14] MEDS ORDERED: digoxin 250mcg/ml 2ml ampule IV ONE ×2 (17:05→23:05)
[2022-09-14] MEDS: guaiFENesin 200mg/20mg codeine phos 10ml UD oral syrup PO PRN (17:22)
[2022-09-14] MEDS: rivaroxaban 20mg tablet PO SCH (17:22)
[2022-09-14] MEDS: traMADol 50MG tablet PO PRN (17:22)
[2022-09-14] MEDS ORDERED: CefTRIAXone/D5W-Rocephin 1gm 50 ML IV ONE (17:55)
--- NOTE | 2022-09-14 18:20 | NUR ---
Problems reprioritized. Patient report given, questions answered & plan of care reviewed with Zhang DOWNS . Patient resting in bed in no acute distress.
--- NOTE | 2022-09-14 18:29 | NUR ---
Patient in room PCU 3020. I have received report from Regina DOWNS and had the opportunity to ask questions and assume patient care.
[2022-09-14 19:00] VITALS: BP 106/60
[2022-09-14 20:06] LABS: CLARITY,URINE CLOUDY (Clear); COLOR,URINE YELLOW (Yellow); GLUCOSE, URINE NEGATIVE (Neg); KETONES,URINE TRACE mg/dl (Neg); LEUKOCYTE ESTERASE ,URINE TRACE (Neg); NITRITES, URINE NEGATIVE (Neg); OCCULT BLOOD,URINE TRACE-INTACT (Neg); PROTEIN,URINE NEGATIVE (Neg); UROBILINOGEN,URINE 0.2 E.U/dL (0.2-1.0)
[2022-09-14 21:07] LABS: UA COLLECTION TYPE NON-SPECIFIED
[2022-09-14 21:24] LABS: BACTERIA,URINE 1+ /HPF (Neg); CAL OXALATE CRYSTALS 4+ /HPF (NEGATIVE); RBC,URINE 0-2 /HPF (0-2); SQUAMOUS EPITHELIAL CELL,UR MANY /LPF (FEW)
[2022-09-14 23:00] VITALS: BP 115/64
[2022-09-15] MEDS: HYDROcodone/acetaminophen 5mg/325mg tablet PO PRN ×4 (01:36→19:30)
[2022-09-15] MEDS: ipratropium/albuterol 3ml nebule NEB SCH ×4 (02:00→19:19)
[2022-09-15 03:24] VITALS: BP 105/65
[2022-09-15 03:48] LABS: BASOPHILS % (AUTO) 0.2 % (0-1); EOSINOPHILS % (AUTO) 0.1 % (0-6); HEMOGLOBIN 12.6 g/dl (12.0-16.0); LYMPHOCYTES % (AUTO) 6.2 % (21-51); MEAN CORPUSCULAR HEMOGLOBIN 26.2 PG (27.0-31.0); MEAN CORPUSCULAR HGB CONC 30.8 g/dL (33.0-36.5); MEAN CORPUSCULAR VOLUME 84.9 FL (78-98); MEAN PLATELET VOLUME 8.7 FL (7.4-10.4); MONOCYTES # (AUTO) 1.5 X10'3 (0-0.9); MONOCYTES % (AUTO) 9.5 % (2-12); NEUTROPHILS # (AUTO) 12.9 X10'3 (1.8-7.7); PLATELET COUNT 254 X10'3 (140-440); RED BLOOD COUNT 4.82 X10'6 (4.20-5.60); WHITE BLOOD COUNT 15.4 X10'3 (4.5-11.0)
[2022-09-15 04:32] LABS: ALANINE AMINOTRANSFERASE 33 U/L (12-78); ALBUMIN 2.6 G/DL (3.4-5.0); ALBUMIN/GLOBULIN RATIO 0.8 (1.1-1.5); ALKALINE PHOSPHATASE 80 IU/L (46-116); ANION GAP 1 (8-16); ASPARTATE AMINO TRANSFERASE 15 U/L (10-37); BILIRUBIN,TOTAL 0.3 MG/DL (0.1-1.0); BLOOD UREA NITROGEN 24 MG/DL (7-18); BUN/CREATININE RATIO 43.6 (10.0-20.0); CALCIUM 8.1 MG/DL (8.5-10.1); CHLORIDE 97 MMOL/L (99-107); CREATININE 0.55 MG/DL (0.40-0.90); GLUCOSE 95 MG/DL (70-104); POTASSIUM 3.9 MMOL/L (3.5-5.1); SODIUM 138 MMOL/L (135-145); TOTAL PROTEIN 5.7 G/DL (6.4-8.2); eGFR > 90 ML/MIN
[2022-09-15 04:40] LABS: TOTAL CARBON DIOXIDE 40.5 MMOL/L (24-32)
[2022-09-15] MEDS ORDERED: digoxin 250mcg/ml 2ml ampule IV ONE (06:05)
--- NOTE | 2022-09-15 06:25 | NUR ---
Problems reprioritized. Patient report given, questions answered & plan of care reviewed with Regina DOWNS.
[2022-09-15 07:00] VITALS: BP 102/59
[2022-09-15] MEDS: lactose-reduced food (Ensure Enlive) - 237ml bottle PO SCH ×3 (08:00→18:00)
[2022-09-15] MEDS ORDERED: CefTRIAXone/D5W-Rocephin 1gm 50 ML IV SCH (08:00)
[2022-09-15] MEDS: docusate sod 100mg capsule PO SCH (08:12)
[2022-09-15] MEDS: aspirin 81mg, enteric-coated 1 TAB TABLET.DR PO SCH (08:12)
[2022-09-15] MEDS: folic acid 1mg tablet PO SCH (08:12)
[2022-09-15] MEDS: furosemide 10 MG/1 ML 10ml inj IV SCH (08:12)
[2022-09-15] MEDS: levoTHYROXINE 25mcg tablet PO SCH (08:12)
[2022-09-15] MEDS: sertraline 50mg tablet PO SCH (08:12)
[2022-09-15] MEDS: diltiazem CD 120mg capsule (once-daily) PO SCH (08:12)
[2022-09-15] MEDS: predniSONE 20 mg tablet PO SCH (08:12)
[2022-09-15] MEDS: anastrozole 1 MG tablet PO SCH (08:13)
[2022-09-15] MEDS: NYSTATIN CREAM - 30GM TUBE TP SCH (08:13)
[2022-09-15 10:43] LABS: CLARITY,URINE SLIGHTLY CLOUDY (Clear); COLOR,URINE YELLOW (Yellow); GLUCOSE, URINE NEGATIVE (Neg); KETONES,URINE NEGATIVE (Neg); LEUKOCYTE ESTERASE ,URINE SMALL (Neg); NITRITES, URINE NEGATIVE (Neg); OCCULT BLOOD,URINE NEGATIVE (Neg); PROTEIN,URINE NEGATIVE (Neg); UROBILINOGEN,URINE 0.2 E.U/dL (0.2-1.0)
[2022-09-15 10:53] LABS: UA COLLECTION TYPE OTHER
[2022-09-15 10:55] LABS: BACTERIA,URINE 1+ /HPF (Neg); MUCUS STRANDS FEW /LPF (Neg); RBC,URINE NONE SEEN /HPF (0-2); SQUAMOUS EPITHELIAL CELL,UR MODERATE /LPF (FEW)
[2022-09-15 11:00] VITALS: BP 89/36
[2022-09-15] MEDS: LORazepam 1 MG tablet PO PRN (12:06)
[2022-09-15 13:24] VITALS: BP 100/60
--- NOTE | 2022-09-15 13:26 | NUR ---
Page Sent promotional table spacer PAGER ID: [phone] MESSAGE: [phone] Flakita . Manual BP 100/60. Regina@[phone] (43 character message out of a maximum of 240) CLOSE [X] SEND ANOTHER PAGE Thank you for visiting [facility] promotional table spacer promotional table spacer
[2022-09-15] MEDS ORDERED: ONDA4TAB12 PO (13:29)
[2022-09-15] MEDS ORDERED: CEFD300C3 PO (13:29)
[2022-09-15] MEDS ORDERED: FURO20TA4 PO (13:29)
[2022-09-15] MEDS ORDERED: DILT-117 PO (13:29)
[2022-09-15] MEDS ORDERED: PRED10TA23 PO (13:29)
[2022-09-15] MEDS ORDERED: LAN0.125T PO (13:29)
[2022-09-15 15:00] VITALS: BP 119/64
--- NOTE | 2022-09-15 16:40 | NUR ---
Wound care pictures taken weekly yesterday 09/15 Addendum: 09/15/22 at 1641 by Regina Richmond RN Amended: Links added.
[2022-09-15] MEDS: rivaroxaban 20mg tablet PO SCH (17:02)
[2022-09-15] MEDS: traMADol 50MG tablet PO PRN (17:03)
--- NOTE | 2022-09-15 20:05 | NUR ---
Patient discharged: patient was escorted out via wheel chair by staff to private vehicle to private residence. Patient was educated on warning signs and signed discharge paper work.
[2022-09-16] MEDS ORDERED: digoxin 125mcg (0.125mg) tablet PO SCH (08:00)
[2022-09-17] MEDS ORDERED: DOXY100C43 PO (11:36)
== END 2022-09-15 20:05 | disposition home health service (06) | DRG 189 ==
LOC: ER 16:44 → ED HOLD 23:50 → EDBEDREQ 09-07 02:17 → PCU 3S 09-07 10:41
PROVIDERS: ADMIT Family Medicine; ATTEND Internal Medicine
PROC: 5A09357 Assistance with Respiratory Ventilation, Less than 24 Consecutive Hours, Continuous Positive Airway Pressure (ICD-10-PCS; principal; 2022-09-06)
PROC: 5A09357 Assistance with Respiratory Ventilation, Less than 24 Consecutive Hours, Continuous Positive Airway Pressure (ICD-10-PCS; 2022-09-08)
PROC: 5A09357 Assistance with Respiratory Ventilation, Less than 24 Consecutive Hours, Continuous Positive Airway Pressure (ICD-10-PCS; 2022-09-09)
PROC: 5A09357 Assistance with Respiratory Ventilation, Less than 24 Consecutive Hours, Continuous Positive Airway Pressure (ICD-10-PCS; 2022-09-11)
PROC: BW281ZZ Computerized Tomography (CT Scan) of Head using Low Osmolar Contrast (ICD-10-PCS; 2022-09-13)
DX: J96.21 Acute and chronic respiratory failure with hypoxia (principal); G92.8 Other toxic encephalopathy; I21.A1 Myocardial infarction type 2; I50.33 Acute on chronic diastolic (congestive) heart failure; J44.1 Chronic obstructive pulmonary disease with (acute) exacerbation; R44.3 Hallucinations, unspecified; E87.1 Hypo-osmolality and hyponatremia; J96.22 Acute and chronic respiratory failure with hypercapnia; I11.0 Hypertensive heart disease with heart failure; I48.91 Unspecified atrial fibrillation; E03.9 Hypothyroidism, unspecified; E86.1 Hypovolemia; E88.09 Other disorders of plasma-protein metabolism, not elsewhere classified; G89.4 Chronic pain syndrome; E66.01 Morbid (severe) obesity due to excess calories; F41.9 Anxiety disorder, unspecified; M54.9 Dorsalgia, unspecified; R00.0 Tachycardia, unspecified; H53.8 Other visual disturbances; I95.9 Hypotension, unspecified; R82.4 Acetonuria; I27.20 Pulmonary hypertension, unspecified; K76.0 Fatty (change of) liver, not elsewhere classified; D64.9 Anemia, unspecified; L89.151 Pressure ulcer of sacral region, stage 1; Z79.01 Long term (current) use of anticoagulants; Z79.811 Long term (current) use of aromatase inhibitors; Z80.0 Family history of malignant neoplasm of digestive organs; Z85.3 Personal history of malignant neoplasm of breast; Z86.711 Personal history of pulmonary embolism; Z79.899 Other long term (current) drug therapy; Z87.891 Personal history of nicotine dependence; Z98.84 Bariatric surgery status; Z99.81 Dependence on supplemental oxygen; Z68.34 Body mass index [BMI] 34.0-34.9, adult; Z90.49 Acquired absence of other specified parts of digestive tract; Z98.891 History of uterine scar from previous surgery; Z90.11 Acquired absence of right breast and nipple
CPT/HCPCS: 36415; 36600; 70470; 71045; 76604; 80053; 80061; 80162; 81001; 82550; 82803; 83036; 83605; 83690; 83735; 83880; 84145; 84443; 84484; 85007; 85008; 85018; 85025; 85379; 85610; 85730; 87040; 87077; 87081; 87088; 87186; 93005; 93306; 94640; 94660; 94664; 94668; 94760; 96360; 97110; 97116; 97161; 97530; 97535; 99291; A4615; A6212; A6213; A6250; C1729; C9113; G0378; J0282; J0360; J0456; J0696; J1160; J1650; J1940; J2060; J2270; J2405; J2543; J2920; J2930; J3370; J3490; J7030; J7040; J7512; Q0163; Q9967